=== PATIENT | male | born 1945 | race Caucasian/White ===

== ENCOUNTER 2017-12-12 14:16 | Outpatient (CLI) | payer BC, MEDICARE ==
--- NOTE | 2017-12-12 14:51 | RAD ---
PA AND LATERAL CHEST: History: Weight loss, fatigue. FINDINGS: Comparison made with exam of 11-16-16. The heart size is normal. The aorta is tortuous. The lungs are expanded without focal areas of consol idation, pneumothoraces or pleural effusions. There are post op changes of left rotator cuff repair. There are degenerative changes of the spine. IMPRESSION: No acute process. POS: [facility]
== END 2017-12-12 14:17 | disposition home or self-care (01) ==
LOC: SCSRAD 14:16
PROVIDERS: ATTEND Nurse Practitioner Family
DX: E87.1 Hypo-osmolality and hyponatremia (principal)
CPT/HCPCS: 71046

== ENCOUNTER 2017-12-13 15:09 | Inpatient (IN) | payer BC, MEDICARE ==
[2017-12-13 15:45] LABS: #Lymphocytes 0.5 thou/uL (1.20-3.40); #Neutrophils 11.4 thou/uL (1.40-6.50); %Eosinophils 0.1 % (0.0-10.0); %Lymphocytes 4.2 % (21.0-51.0); %Monocytes 7.7 % (0.0-10.0); %Neutrophils 88.1 % (42.0-75.0); Hemoglobin 12.3 g/dL (14.0-18.0); Mean Corpuscular HGB CONC 36.1 g/dL (32.0-36.0); Mean Corpuscular Hemoglobin 33.8 pg (27.0-31.0); Mean Corpuscular Volume 93.6 fl (80.0-94.0); Mean Platelet Volume 6.5 fL (7.4-10.4); Platelet Count 244 thou/uL (130-400); RBC Distribution Width 11.3 % (11.5-14.5); Red Blood Cell (RBC) Count 3.65 mill/uL (4.70-6.10)
[2017-12-13 16:01] LABS: ALT (SGPT) 26 U/L (8-55); AST (SGOT) 19 U/L (5-34); Albumin 4.7 g/dL (3.4-4.8); Alkaline Phosphatase 42 U/L (40-150); Anion Gap 20 mmol/L (10-20); BUN (Urea Nitrogen) 15 mg/dL (8.4-25.7); Bilirubin, Total 1.1 mg/dL (0.2-1.2); Calc. Creatinine Clearance 0 mL/min (70-130); Calcium 9.2 mg/dL (7.8-10.44); Carbon Dioxide 22 mmol/L (23-31); Chloride 88 mmol/L (98-107); Estimated GFR-MDRD 54; Globulin 2.5 g/dL (2.4-3.5); Glucose 174 mg/dL (80-115); Potassium 4.5 mmol/L (3.5-5.1); Protein, Total 7.2 g/dL (5.8-8.1); Sodium 125 mmol/L (136-145)
[2017-12-13] MEDS ORDERED: Lorazepam 2 MG/ML VIAL SLOW IVP PRN (17:19)
[2017-12-13 17:22] LABS: Thyroid Stimulating Hormone 0.4687 uIU/mL (0.35-4.94)
[2017-12-13] MEDS ORDERED: Dextrose 5% in Water 1,000 ML IV PRN (17:42)
[2017-12-13] MEDS ORDERED: Dextrose 50% Abboject 50 ML SYRINGE SLOW IVP PRN (17:42)
[2017-12-13] MEDS ORDERED: Insulin Regular 300 UNITS/3 ML VIAL SC PRN (17:42)
[2017-12-13 18:00] LABS: Anion Gap 16 mmol/L (10-20); BUN (Urea Nitrogen) 16 mg/dL (8.4-25.7); Calc. Creatinine Clearance 0 mL/min (70-130); Calcium 8.5 mg/dL (7.8-10.44); Carbon Dioxide 23 mmol/L (23-31); Chloride 90 mmol/L (98-107); Estimated GFR-MDRD 67; Glucose 153 mg/dL (80-115); Potassium 4.1 mmol/L (3.5-5.1); Sodium 125 mmol/L (136-145)
[2017-12-13 18:08] VITALS: BMI 23.5
[2017-12-13] MEDS ORDERED: Ketotifen Fumarate 0.025% Ophth Soln 5 ml Bottle EA EYE PRN (18:21)
[2017-12-13] MEDS: Flecainide 50 MG TAB PO SCH (20:54)
[2017-12-13] MEDS: Tamsulosin HCl 0.4 MG CAP PO SCH (20:54)
[2017-12-13] MEDS: Apixaban 5 MG TAB PO SCH (20:55)
[2017-12-13] MEDS: Rosuvastatin 20 MG TAB PO SCH (20:55)
[2017-12-13] MEDS: Pantoprazole 40 MG VIAL IVP SCH (20:57)
[2017-12-13] MEDS ORDERED: Ketotifen Fumarate 0.025% Ophth Soln 5 ml Bottle EA EYE SCH (21:00)
[2017-12-13 22:42] LABS: Osmolality, Urine 173 mOsm/kg (300-900)
[2017-12-13 23:41] LABS: Sodium, Urine Less than 20 mmol/L (Not Available)
--- NOTE | 2017-12-13 23:54 | HP ---
CHIEF COMPLAINT: Generalized weakness and loss of appetite. HISTORY OF PRESENT ILLNESS: The patient is a very pleasant 72-year-old male with a history of atrial fibrillation, on anticoagulation; diabetes; and history of Bejarano's esophagitis, who was sent to [facility] by his primary care doctor for abnormal labs. The patient states that for the past few we eks, he has been feeling low energy and has not had much of an appetite. Over the past few months, h e has lost about 30 pounds. The patient denies any fevers or chills and he denies any diaphoresis, a ny nausea, vomiting, diarrhea, any palpitations, or chest pain. The patient states that he has chron ic back pain and received a steroid shot on 12/10/2017 with minimal relief. The patient also has a h istory of alcohol use. He drinks about 3-4 beers a day and followed by a couple mugs of wine. The p atient states that he has not been eating very much. PAST MEDICAL HISTORY: History of atrial fibrillation, diabetes, hypertension, Bejarano's esophagitis. ALLERGIES: HYDROCODONE AND LORATADINE. MEDICATIONS: I do not have the medication list with me, but the patient states that he takes Eliquis 5 mg twice a day, he takes metformin 1000 twice a day, metoprolol 50 mg twice a day, Crestor 40 mg d aily, tamsulosin 0.4 mg daily, diltiazem he takes 120 mg daily. PAST SURGICAL HISTORY: Rotator cuff repair, tonsillectomy, and adenoidectomy. SOCIAL HISTORY: He drinks 3 or 4 beers a day, followed by 2 mugs of wine. Denies any smoking histor y; however, he is a former smoker. He denies any drug history. FAMILY HISTORY: Father had bypass at the age of 65, of a heart attack. Mother in the age of 62 with throat cancer. REVIEW OF SYSTEMS: All negative except for the ones mentioned above in the HPI. LABORATORY DATA: He has a white count of 13, hematocrit of 34.2, hemoglobin of 12.3, platelets of 24 4. Chemistry: His sodium is 125, on the 12th it was 129. Chloride of 88, potassium of 4.5, BUN of 15, creatinine of 1.32. His glucose is 174. His serum osmolality is 271. His chest x-ray that he h ad done indicated no acute process noted. PHYSICAL EXAMINATION: VITAL SIGNS: Temperature of 97.8, respirations 18, heart rate of 81, blood pressure 136/70, saturati on 100% on room air. GENERAL: He is awake, alert, oriented x3. Does not appear in any distress. CARDIOVASCULAR: S1, S2 present and regular. No murmurs or rubs heard. LUNGS: Clear to auscultation. No rhonchi or wheezes noted. ABDOMEN: Soft, nontender. Bowel sounds present x2. EXTREMITIES: No edema. NEUROVASCULAR: He has got no focal deficits; however, I did not walk the patient. SKIN: There are no skin tears or lesions noted. ASSESSMENT AND PLAN: 1. The patient is a very pleasant 72-year-old male who presented to the hospital with complaints of decreased energy and not eating, and was found to have hyponatremia. 2. Hyponatremia. This could possibly be secondary to hypotonic hyponatremia. There is a medication thiazide that was mentioned in the ER notes; however, the patient currently does not have his meds a nd I am not sure if he is taking the thiazide. The patient does not recall. Thiazides are very nani rious to cause hyponatremia; however, we will check a TSH level. His serum osmolality was low. We w ill check urine sodium and urine osmolality also. The patient also drinks. This could also be eithe r low solute due to decreased oral intake and also due to beer potomania, because he drinks a lot of alcohol. The patient states that he has been drinking about 3-4 regular bottles of water; however, h as not been eating very much. He states that he eats couple bites of food and feels very full. We w ill also get Nephrology on board since of hyponatremia and also he has got mild TONG. We will check o rthostatics; however, clinically, the patient does not appear to be dehydrated. We will put the elina ent on a fluid restriction and see if that improves the patient's sodium. 3. Weight loss, decreased appetite, and fatigue. The patient has had a history of Bejarano's esophag itis. He continues to drink according to him. He is not on any Protonix or any PPI and he has not f ollowed up with GI. There is a concern for possible malignancy. We will consult GI and go from ther e. However, the patient denies any dark stools. His H&H are stable. 4. Mild acute kidney injury. The patient's creatinine is 1.32; however, his BUN is completely roselyn l. We will continue to monitor. We will check urine sodium and urine osmolality. May consider gett ing a renal ultrasound to rule out any obstructive issues and continue to monitor. 5. Atrial fibrillation. We will continue the patient's home medication and also the patient's antic oagulation. The patient states that he does not take the Multaq anymore. He has been switched to fl ecainide. 6. Deep venous thrombosis prophylaxis. The patient is already on Eliquis.
[2017-12-14 00:26] LABS: Anion Gap 14 mmol/L (10-20); BUN (Urea Nitrogen) 16 mg/dL (8.4-25.7); Calc. Creatinine Clearance 83 mL/min (70-130); Calcium 8.5 mg/dL (7.8-10.44); Carbon Dioxide 24 mmol/L (23-31); Chloride 94 mmol/L (98-107); Estimated GFR-MDRD 77; Glucose 155 mg/dL (80-115); Potassium 3.9 mmol/L (3.5-5.1); Sodium 128 mmol/L (136-145)
[2017-12-14] MEDS ORDERED: Melatonin 3 MG TAB PO SCH (01:00)
[2017-12-14] MEDS: Acetaminophen 325 MG TAB PO PRN (01:19)
[2017-12-14 05:16] LABS: #Lymphocytes 0.7 thou/uL (1.20-3.40); #Monocytes 0.7 thou/uL (0.11-0.59); #Neutrophils 6.9 thou/uL (1.40-6.50); %Eosinophils 0.2 % (0.0-10.0); %Lymphocytes 8.6 % (21.0-51.0); %Monocytes 8.5 % (0.0-10.0); %Neutrophils 82.6 % (42.0-75.0); Hemoglobin 10.8 g/dL (14.0-18.0); Mean Corpuscular HGB CONC 35.8 g/dL (32.0-36.0); Mean Corpuscular Hemoglobin 33.7 pg (27.0-31.0); Mean Corpuscular Volume 94.1 fl (80.0-94.0); Mean Platelet Volume 7.2 fL (7.4-10.4); Platelet Count 193 thou/uL (130-400); RBC Distribution Width 11.3 % (11.5-14.5); White Blood Cell (WBC) Count 8.4 thou/uL (4.8-10.8)
[2017-12-14 05:29] LABS: Anion Gap 12 mmol/L (10-20); BUN (Urea Nitrogen) 14 mg/dL (8.4-25.7); Calc. Creatinine Clearance 89 mL/min (70-130); Calcium 8.4 mg/dL (7.8-10.44); Carbon Dioxide 26 mmol/L (23-31); Chloride 96 mmol/L (98-107); Estimated GFR-MDRD 82; Glucose 160 mg/dL (80-115); Potassium 3.9 mmol/L (3.5-5.1); Sodium 130 mmol/L (136-145)
[2017-12-14] MEDS: Pantoprazole 40 MG VIAL IVP SCH ×2 (08:32→21:32)
[2017-12-14] MEDS: Apixaban 5 MG TAB PO SCH (08:32)
[2017-12-14] MEDS: Flecainide 50 MG TAB PO SCH ×2 (08:32→21:30)
--- NOTE | 2017-12-14 10:39 | CON ---
DATE OF CONSULTATION: 12/14/2017 HISTORY OF PRESENT ILLNESS: Mr. Antonio is a 72-year-old white male who was initially admitted for ge neralized malaise and weight loss. He was also noted to be in acute kidney injury and hyponatremic. Initial workup suggested he was simply volume depleted. He was given volume repletion with slow imp rovement of the serum sodium. In addition, renal function has improved to normal. We are now being consulted for the hyponatremia and initial acute kidney injury. REVIEW OF SYSTEMS: No chest pain. Appetite decreased. Energy level is fair. No diarrhea, no const ipation, no abdominal pain, no headache, no diplopia, no nausea, no fever or chills, no shortness of breath, no headache, no gross hematuria, no dysuria, no urinary frequency, no syncopal episode. MEDICATIONS: Eliquis 5 mg p.o. b.i.d., Tylenol p.r.n., Tambocor 100 mg p.o. q.12h., Humulin R slidin g scale, Ativan 1 mg IV q.4 hours p.r.n., simvastatin 40 mg at bedtime, Flomax 0.4 mg once a day. PAST MEDICAL HISTORY: 1. Type 2 diabetes mellitus? 2. Hyperlipidemia. 3. GERD. 4. BPH. 5. Bejarano's esophagitis. 6. Hypertension. 7. Atrial fibrillation. ALLERGIES: HYDROCODONE and LORATADINE. TRAUMA: Status post right wrist fracture. IMMUNIZATIONS: Up to date. HOSPITALIZATIONS: Please see past medical history. PAST SURGICAL HISTORY: 1. Status post rotator cuff surgery. 2. Status post tonsillectomy. SOCIAL HISTORY: He is and lives in [place]. He has 3 children. He smoked for 17 years, one p ack a day, currently not smoking. Alcohol, 8 alcoholic drinks per day. 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 Education: Some college courses. No IV drug abuse. Status post blo od transfusion. FAMILY HISTORY: No family history of ESRD. PHYSICAL EXAMINATION: VITAL SIGNS: Blood pressure is 165/76, heart rate 61, respiratory rate 16, temperature 97.7, pulse o x 97%. GENERAL: Awake, alert, supine, comfortable, not in distress. SKIN: Decreased turgor. HEENT: He has pinkish conjunctivae, anicteric sclerae. NECK: No neck mass, no carotid bruits, no JVD. CHEST: No deformities. LUNGS: Clear breath sounds, no wheezing, no crackles. HEART: Normal sinus rhythm. No murmur, no gallops or rubs. ABDOMEN: Globular, soft, nontender, no masses. EXTREMITIES: No edema, no deformities. LABORATORY AND X-RAY FINDINGS: 12/14/2017 - Hemoglobin 10.8, sodium 130, potassium 3.9, chloride 96, carbon dioxide 26, BUN 14, creatinine 0.91, glucose 160, calcium 8.4. TSH 0.4. 12/13/2017 - Serum sodium was 125. Urinalysis; urine osmolality 173. Urine sodium less than 20. ASSESSMENT AND PLAN: 1. Hyponatremia - I suspect this is related to hypovolemic hyponatremia, improved with volume replet ion. Urine sediment and urine chemistry suggest that he may simply be prerenal. For the moment due to the improving serum sodium will continue current management. Increase if needed, we can resume ba ck normal saline with this patient. 2. Acute kidney injury. There was a report that the initial creatinine with this patient was at 1.2 5. I did recheck the chemistries and it is now within normal. He may have also had some degree of h emodynamically mediated renal dysfunction. Please note this patient has a 30 pound weight loss and f or that reason, a GI consult has been done to rule out any occult malignancy. Thank you for the consult.
--- NOTE | 2017-12-14 11:33 | CON ---
DATE OF CONSULTATION: 12/14/2017 GASTROINTESTINAL INPATIENT CONSULTATION NOTE REQUESTING PHYSICIAN: Cecilia Spangler MD. REASON FOR CONSULTATION: Weight loss and early satiety. HISTORY OF PRESENT ILLNESS: Jj Antonio is a very pleasant 72-year-old man, patient of my GI colle ague Dr. Lucian Nino. He has a history significant for prostate cancer status post radiation therapy and development of rectal AVMs. He also has a history of short segment Bejarano's esophagus and gastr ic arteriovenous malformations. His last EGD was in 10/2016 showing short segment Bejarano's and a bl eeding gastric AVM, which was cauterized. His last colonoscopy was in 01/2016, which showed rectal A VMs which were treated with argon plasma coagulation and a benign polyp, which was removed. The [facility] ent takes Eliquis for his atrial fibrillation. He was admitted to the hospital yesterday after being found to have multiple lab abnormalities on routine physical examination. He was found to have some mild acute kidney injury as well as hyponatremia. He has reported significant weight loss of 50 amanda nds over the past couple of years, but more rapid weight loss of 30 pounds over the past 6 months. H e attributes this to low appetite and early satiety and decreased oral intake. He will get nauseated usually in the mornings though vomiting is more rare. He denies any abdominal pain. There is no me юлия or hematochezia. His bowel movements have slowed down a bit. He is now having bowel movement e very 3 days or so where it used to be more frequent. He denies any dysphagia. He is not on any acid suppression despite his confirm diagnosis of short segment Bejarano's esophagus. His mother of throat cancer. He does admit to too much alcohol intake. He is unwilling to quantify this for me, b ut he had reported to other providers about 3-4 beers followed by a couple of mugs of wine per day. REVIEW OF SYSTEMS: Full review of systems including constitutional, head, eyes, ears, nose, throat, GI, , cardiovascular, respiratory, musculoskeletal, and neurologic systems is negative except as no felipe in the HPI. PAST MEDICAL HISTORY: 1. Atrial fibrillation status post ablation, on Eliquis. 2. Chronic back pain. 3. Prostate cancer status post radiation treatment. 4. Diabetes. 5. Short segment Bejarano's esophagus confirmed by biopsy in 10/2016. 6. Hypertension. 7. Rectal arteriovenous malformations. 8. Adenomatous colon polyps, last colonoscopy 01/2016. 9. Rotator cuff surgery. 10. Tonsillectomy and adenoidectomy. 11. Restless leg syndrome. ALLERGIES: HYDROCODONE AND LORATADINE, cause rash. OUTPATIENT MEDICATIONS: Eliquis twice daily, metformin, metoprolol, Crestor, Flomax, diltiazem. FAMILY HISTORY: His mother had throat cancer. His father had coronary artery disease. SOCIAL HISTORY: The patient is a former smoker. No drug use. He will have 3-4 beers and 2 mugs of wine per day. PHYSICAL EXAMINATION: VITAL SIGNS: Temperature 97.7, pulse 61, blood pressure 165/76, 97% oxygen saturation on room air. GENERAL: A 72-year-old man ambulating about the room comfortably, in no distress. SKIN: No jaundice, no rashes were palpable. EYES: No scleral icterus. Extraocular movements intact. ENT: Mucous membranes moist, no oral lesions. LYMPH: No submandibular or supraclavicular lymphadenopathy. THYROID: Nontender to palpation. HEART: Regular rate and rhythm. LUNGS: Clear to auscultation bilaterally. ABDOMEN: Nondistended. Bowel sounds present, soft, nontender to palpation throughout. No masses or organomegaly appreciated. EXTREMITIES: No peripheral edema. VESSELS: Radial pulses 2+ bilaterally. NEUROLOGICAL: Cranial nerves II-XII intact bilaterally. No focal deficits. LABORATORY STUDIES: WBC initially 13, came down to 8.4; hemoglobin is 10.8; MCV 94; platelets 193. BUN down to 14; creatinine initially 1.32, now down to 0.91. Sodium 130, potassium 3.9, glucose 157. LFTs all normal with total bilirubin 1.1, alkaline phosphatase 42, AST 19, ALT 26, albumin 4.7. ASSESSMENT AND PLAN: 1. Abnormal weight loss. 2. Early satiety. 3. Nausea. 4. Alcohol abuse. 5. History of Bejarano's esophagus. The most concerning aspect of his presentation is the progressive fatigue and weight loss over the pa st 6 months. This is concomitant with an unexplained early satiety. I agree that further workup is warranted. He has had upper and lower endoscopy within the past couple of years, but is due for uppe r endoscopy anyway and has Bejarano's esophagus, untreated with any PPI. Today, we will plan for a CT of the abdomen and pelvis. Assuming this is nonrevealing, we will plan for upper and lower endoscop y. We will hold his Eliquis now, and if we proceed with endoscopy, we can get this done on Sunday. Thank you for the consultation. Please call any time with questions or concerns.
[2017-12-14 12:16] LABS: Anion Gap 12 mmol/L (10-20); BUN (Urea Nitrogen) 13 mg/dL (8.4-25.7); Calc. Creatinine Clearance 85 mL/min (70-130); Calcium 8.9 mg/dL (7.8-10.44); Carbon Dioxide 28 mmol/L (23-31); Chloride 96 mmol/L (98-107); Estimated GFR-MDRD 78; Glucose 193 mg/dL (80-115); Potassium 3.7 mmol/L (3.5-5.1); Sodium 132 mmol/L (136-145)
--- NOTE | 2017-12-14 14:57 | CT ---
ABDOMEN AND PELVIC CT SCAN WITH IV CONTRAST: Date: 12/14/17 HISTORY: 72-year-old male with history of abnormal weight loss, nausea, decreased appetite. COMPARISON: 10/22/14. FINDINGS: Visualized lower lung bases are clear of acute process. Mild fatty changes in the liver. Multiple gal lstones without gallbladder wall thickening or CT evidence for acute cholecystitis. Pancreas, spleen, and adrenal glands show no significant acute process. Right upper pole renal minimally septated cyst , benign and stable. No renal calculus or obstruction. Normal appearing appendix. The urinary blad jazmin wall is somewhat thickened, but there is minimal or decreased filling and appearance is stable fr om the prior study. IMPRESSION: Minimal fatty changes of the liver. Cholelithiasis without overt cholecystitis. Stable right upper po le renal cyst. No evidence for significant acute process in the abdomen or pelvis. Bilateral pars def ects at L5, stable. POS: [facility]
[2017-12-14] MEDS ORDERED: ISOVUE-370 76%-LOCM 1 ML ONE (16:38)
[2017-12-14 17:52] LABS: Anion Gap 12 mmol/L (10-20); BUN (Urea Nitrogen) 12 mg/dL (8.4-25.7); Calc. Creatinine Clearance 89 mL/min (70-130); Calcium 8.8 mg/dL (7.8-10.44); Carbon Dioxide 26 mmol/L (23-31); Chloride 98 mmol/L (98-107); Estimated GFR-MDRD 82; Glucose 165 mg/dL (80-115); Potassium 3.6 mmol/L (3.5-5.1); Sodium 132 mmol/L (136-145)
[2017-12-14] MEDS: Melatonin 3 MG TAB PO SCH (21:30)
[2017-12-14] MEDS: Rosuvastatin 20 MG TAB PO SCH (21:31)
[2017-12-14] MEDS: Tamsulosin HCl 0.4 MG CAP PO SCH (21:32)
[2017-12-14 23:50] LABS: Anion Gap 13 mmol/L (10-20); BUN (Urea Nitrogen) 11 mg/dL (8.4-25.7); Calc. Creatinine Clearance 95 mL/min (70-130); Calcium 8.7 mg/dL (7.8-10.44); Carbon Dioxide 27 mmol/L (23-31); Chloride 98 mmol/L (98-107); Estimated GFR-MDRD 89; Glucose 109 mg/dL (80-115); Potassium 3.5 mmol/L (3.5-5.1); Sodium 134 mmol/L (136-145)
[2017-12-15] MEDS: Acetaminophen 325 MG TAB PO PRN ×2 (01:00→11:45)
[2017-12-15] MEDS: Melatonin 3 MG TAB PO SCH ×2 (01:01→23:11)
[2017-12-15] MEDS ORDERED: Amlodipine 5 MG TAB PO SCH (02:30)
[2017-12-15] MEDS: Pantoprazole 40 MG VIAL IVP SCH (08:10)
[2017-12-15] MEDS: Flecainide 50 MG TAB PO SCH ×2 (08:10→21:27)
[2017-12-15] MEDS ORDERED: GoLYTELY 4,000 ml Bottle PO SCH (09:15)
--- NOTE | 2017-12-15 10:04 | PRG ---
DATE OF SERVICE: 12/15/2017 SUBJECTIVE: Mr. Antonio has no new complaints. He is feeling okay. He started on a clear liquid t today. PHYSICAL EXAMINATION: VITAL SIGNS: Temperature 97.9, pulse 60, blood pressure 166/74, 96% oxygen saturation on room air. GENERAL: No acute distress. HEART: Regular rate and rhythm. LUNGS: Clear to auscultation bilaterally. ABDOMEN: Soft, nontender to palpation. EXTREMITIES: No peripheral edema. LABORATORY STUDIES: Sodium 134, potassium 3.5, BUN 11, creatinine 0.85, glucose 137. IMAGING STUDIES: CT of the abdomen and pelvis performed yesterday showed minimal fatty liver, cholel ithiasis without cholecystitis and a stable right upper pole renal cyst, no acute processes or other significant pathology. ASSESSMENT AND PLAN: 1. Abnormal weight loss. 2. Early satiety. 3. Nausea. 4. Alcohol abuse. I discussed the reassuring CT results with the patient. I do not think his symptoms can be attribute d to his gallstones. We will plan for EGD and colonoscopy tomorrow after bowel preparation tonight. The patient desires to proceed.
--- NOTE | 2017-12-15 10:09 | PDOC.PN ---
- Subjective Encounter Start Date: 12/14/17 Encounter Start Time: 11:00 Subjective: pt up in bed no complains - Objective Vital Signs & Weight: Vital Signs (12 hours) Temp Pulse Resp BP BP BP Pulse Ox 12/15/17 08:09 60 12/15/17 08:00 98.3 F 60 18 99 12/15/17 07:55 97.9 F 60 16 166/74 H 96 12/15/17 04:00 98.0 F 59 L 16 163/74 H 163/74 H 98 12/15/17 02:37 72 168/66 H 12/15/17 01:15 170/76 H 12/15/17 00:00 98.0 F 72 16 183/71 H 183/71 H 100 Weight Admit Weight 183 lb Weight 183 lb I&O: 12/14/17 12/15/17 12/16/17 06:59 06:59 06:59 Intake Total 750 420 Balance 750 420 Result Diagrams: 12/14/17 04:07 12/14/17 23:17 Additional Labs: Accuchecks 12/15/17 12/14/17 12/14/17 04:37 20:55 16:30 POC Glucose 137 H 162 H 227 H 12/14/17 11:15 POC Glucose 200 H Phys Exam - Physical Examination HEENT: PERRLA, moist MMs, sclera anicteric, TM's clear, oral pharynx no lesions , 2+ tonsils Neck: no nodes, no JVD, supple, full ROM Respiratory: no wheezing, no rales, no rhonchi, wheezing present, clear to auscultation bilateral Cardiovascular: RRR, no significant murmur, no rub, gallop, irregular Gastrointestinal: soft, non-tender, no distention, positive bowel sounds Musculoskeletal: no edema, pulses present, edema present Neurological: non-focal, normal sensation, moves all 4 limbs Dx/Plan (1) Hyponatremia Code(s): E87.1 - HYPO-OSMOLALITY AND HYPONATREMIA Status: Acute (2) TONG (acute kidney injury) Code(s): N17.9 - ACUTE KIDNEY FAILURE, UNSPECIFIED Status: Acute Comment: Likely due to acute blood loss anemia, hypovolemia, improved (3) Weight loss, abnormal Code(s): R63.4 - ABNORMAL WEIGHT LOSS Status: Acute (4) Alcohol abuse Code(s): F10.10 - ALCOHOL ABUSE, UNCOMPLICATED Status: Acute (5) Atrial fibrillation with RVR Code(s): I48.91 - UNSPECIFIED ATRIAL FIBRILLATION Status: Acute (6) DM2 (diabetes mellitus, type 2) Status: Chronic Qualifiers: Diabetes mellitus chcf insulin use: without termite helper use Diabetes mellitus complication status: with kidney complications Diabetes mellitus complication detail: with nephropathy Qualified Code(s): E11.21 - Type 2 diabetes mellitus with diabetic nephropathy Comment: Resume Metformin XR 1000mg po daily, ISS, accuchecks achs (7) HTN (hypertension) Code(s): I10 - ESSENTIAL (PRIMARY) HYPERTENSION Status: Chronic Qualifiers: Hypertension type: essential hypertension Qualified Code(s): I10 - Essential (primary) hypertension - Plan * . PLAN: pt under went ctabd/pel which is normal. sodium has improved. continue ASE protocol. Review of Systems - Review of Systems ENT: negative: Ear Pain, Ear Discharge, Nose Pain, Nose Discharge, Nose Congestion, Mouth Pain, Mouth Swelling, Throat Pain, Throat Swelling, Other Respiratory: negative: Cough, Dry, Shortness of Breath, Hemoptysis, SOB with Excertion, Pleuritic Pain, Sputum, Wheezing Cardiovascular: negative: chest pain, palpitations, orthopnea, paroxysmal nocturnal dyspnea, edema, light headedness, other - Medications/Allergies Allergies/Adverse Reactions: Allergies Allergy/AdvReac Type Severity Reaction Status Date / Time hydrocodone Allergy Verified 12/08/16 16:38 loratadine Allergy Verified 12/08/16 16:38 Medications: Current Medications Acetaminophen (Tylenol) 650 mg PO Q4H PRN PRN Reason: Headache/Fever or Pain Last Admin: 12/15/17 11:45 Dose: 650 mg Apixaban (Eliquis) 5 mg PO BID MAR Last Admin: 12/14/17 08:32 Dose: 5 mg Dextrose/Water (Dextrose 50%) 25 gm SLOW IVP PRN PRN PRN Reason: Hypoglycemia Diltiazem HCl (Cardizem Sr) 60 mg PO BID MAR Flecainide Acetate (Tambocor) 100 mg PO Q12HR MAR Last Admin: 12/15/17 08:10 Dose: 100 mg Glucagon (Glucagon) 1 mg IM PRN PRN PRN Reason: Hypoglycemia Dextrose/Water (D5w) 1,000 mls @ 0 mls/hr IV .Q0M PRN; As Directed PRN Reason: Hypoglycemia Insulin Human Regular (Humulin R) 0 units SC .MILD SLIDING SCALE PRN PRN Reason: Mild Correctional Scale Last Admin: 12/14/17 17:06 Dose: 3 unit Ketotifen Fumarate (Zaditor 0.025% Ophth Soln) 1 drop EA EYE BID PRN PRN Reason: ALLERGY EYES Lorazepam (Ativan) 1 mg SLOW IVP Q4H PRN PRN Reason: Alcohol Withdrawal Melatonin (Melatonin) 3 mg PO HS [facility] Last Admin: 12/15/17 01:01 Dose: 3 mg Pantoprazole Sodium (Protonix) 40 mg PO BID [facility] Polyethylene Glycol/Electrolytes (Golytely) 4,000 ml PO ONE [facility] Stop: 12/15/17 23:59 Last Admin: 12/15/17 16:39 Dose: 4,000 ml Rosuvastatin Calcium (Crestor) 40 mg PO HS [facility] Last Admin: 12/14/17 21:31 Dose: 40 mg Tamsulosin HCl (Flomax) 0.4 mg PO HS [facility] Last Admin: 12/14/17 21:32 Dose: 0.4 mg Tramadol HCl (Ultram) 50 mg PO Q6H PRN PRN Reason: Pain Last Admin: 12/15/17 18:22 Dose: 50 mg
[2017-12-15] MEDS ORDERED: traMADol HCl 50 MG TAB PO PRN (14:27)
--- NOTE | 2017-12-15 18:41 | PDOC.PN ---
- Subjective Encounter Start Date: 12/15/17 Encounter Start Time: 11:00 Subjective: pt up in bed complains of lower back pain - Objective Vital Signs & Weight: Vital Signs (12 hours) Temp Pulse Resp BP Pulse Ox 12/15/17 08:09 60 12/15/17 08:00 98.3 F 60 18 99 12/15/17 07:55 97.9 F 60 16 166/74 H 96 Weight Admit Weight 183 lb Weight 183 lb I&O: 12/14/17 12/15/17 12/16/17 06:59 06:59 06:59 Intake Total 750 1260 Balance 750 1260 Result Diagrams: 12/14/17 04:07 12/14/17 23:17 Additional Labs: Accuchecks 12/15/17 12/15/17 12/15/17 16:39 11:50 04:37 POC Glucose 173 H 168 H 137 H 12/14/17 20:55 POC Glucose 162 H Phys Exam - Physical Examination HEENT: PERRLA, moist MMs, sclera anicteric, TM's clear, oral pharynx no lesions , 2+ tonsils Neck: no nodes, no JVD, supple, full ROM Respiratory: no wheezing, no rales, no rhonchi, wheezing present, clear to auscultation bilateral Cardiovascular: RRR, no significant murmur, no rub, gallop, irregular Gastrointestinal: soft, non-tender, no distention, positive bowel sounds left hip pain Neurological: non-focal, normal sensation, moves all 4 limbs Dx/Plan (1) Hyponatremia Code(s): E87.1 - HYPO-OSMOLALITY AND HYPONATREMIA Status: Acute (2) TONG (acute kidney injury) Code(s): N17.9 - ACUTE KIDNEY FAILURE, UNSPECIFIED Status: Acute Comment: Likely due to acute blood loss anemia, hypovolemia, improved (3) Weight loss Status: Acute (4) Weight loss, abnormal Code(s): R63.4 - ABNORMAL WEIGHT LOSS Status: Acute (5) Alcohol abuse Code(s): F10.10 - ALCOHOL ABUSE, UNCOMPLICATED Status: Acute - Plan * . pt's Na is at baseline pt to go for colonoscopy and egd in am continue ppi pt complains of back pain. Recent steroid injection. will rx tramadol prn for pain Review of Systems - Review of Systems ENT: negative: Ear Pain, Ear Discharge, Nose Pain, Nose Discharge, Nose Congestion, Mouth Pain, Mouth Swelling, Throat Pain, Throat Swelling, Other Cardiovascular: negative: chest pain, palpitations, orthopnea, paroxysmal nocturnal dyspnea, edema, light headedness, other Gastrointestinal: negative: Nausea, Vomiting, Abdominal Pain, Diarrhea, Constipation, Melena, Hematochezia, Other Musculoskeletal: Other (lower back pain) Skin: negative: Rash, Lesions, Chinmay, Bruising, Other - Medications/Allergies Allergies/Adverse Reactions: Allergies Allergy/AdvReac Type Severity Reaction Status Date / Time hydrocodone Allergy Verified 12/08/16 16:38 loratadine Allergy Verified 12/08/16 16:38 Medications: Current Medications Acetaminophen (Tylenol) 650 mg PO Q4H PRN PRN Reason: Headache/Fever or Pain Last Admin: 12/15/17 11:45 Dose: 650 mg Apixaban (Eliquis) 5 mg PO BID [facility] Last Admin: 12/14/17 08:32 Dose: 5 mg Dextrose/Water (Dextrose 50%) 25 gm SLOW IVP PRN PRN PRN Reason: Hypoglycemia Diltiazem HCl (Cardizem Sr) 60 mg PO BID [facility] Flecainide Acetate (Tambocor) 100 mg PO Q12HR [facility] Last Admin: 12/15/17 08:10 Dose: 100 mg Glucagon (Glucagon) 1 mg IM PRN PRN PRN Reason: Hypoglycemia Dextrose/Water (D5w) 1,000 mls @ 0 mls/hr IV .Q0M PRN; As Directed PRN Reason: Hypoglycemia Insulin Human Regular (Humulin R) 0 units SC .MILD SLIDING SCALE PRN PRN Reason: Mild Correctional Scale Last Admin: 12/14/17 17:06 Dose: 3 unit Ketotifen Fumarate (Zaditor 0.025% Ophth Soln) 1 drop EA EYE BID PRN PRN Reason: ALLERGY EYES Lorazepam (Ativan) 1 mg SLOW IVP Q4H PRN PRN Reason: Alcohol Withdrawal Melatonin (Melatonin) 3 mg PO HS [facility] Last Admin: 12/15/17 01:01 Dose: 3 mg Pantoprazole Sodium (Protonix) 40 mg PO BID [facility] Polyethylene Glycol/Electrolytes (Golytely) 4,000 ml PO ONE [facility] Stop: 12/15/17 23:59 Last Admin: 12/15/17 16:39 Dose: 4,000 ml Rosuvastatin Calcium (Crestor) 40 mg PO HS MAR Last Admin: 12/14/17 21:31 Dose: 40 mg Tamsulosin HCl (Flomax) 0.4 mg PO HS MAR Last Admin: 12/14/17 21:32 Dose: 0.4 mg Tramadol HCl (Ultram) 50 mg PO Q6H PRN PRN Reason: Pain Last Admin: 12/15/17 18:22 Dose: 50 mg
[2017-12-15] MEDS ORDERED: Diltiazem HCl SR 60 mg Capsule PO SCH (21:00)
[2017-12-15] MEDS: Rosuvastatin 20 MG TAB PO SCH (21:27)
[2017-12-15] MEDS: Tamsulosin HCl 0.4 MG CAP PO SCH (21:27)
[2017-12-15] MEDS: Diltiazem HCl SR 60 mg Capsule PO SCH (21:27)
[2017-12-16 01:33] VITALS: TEMP 97.8
[2017-12-16] MEDS ORDERED: Metoprolol Tartrate 25 MG TAB PO SCH (04:15)
[2017-12-16 06:32] VITALS: BP 174/93
[2017-12-16] MEDS: Diltiazem HCl SR 60 mg Capsule PO SCH (08:22)
[2017-12-16] MEDS: Flecainide 50 MG TAB PO SCH (08:22)
[2017-12-16] MEDS ORDERED: Ondansetron HCl/PF 4 MG/2 ML Vial IVP PRN (08:42)
[2017-12-16] MEDS ORDERED: Promethazine HCl 25 MG/ML VIAL SLOW IVP PRN (08:42)
[2017-12-16] MEDS ORDERED: Promethazine HCl 25 MG/ML VIAL IM PRN (08:42)
--- NOTE | 2017-12-16 11:06 | OP ---
DATE OF PROCEDURE: 12/16/2017 GI ENDOSCOPY NOTE SURGEON: Uriel Jiang M.D. FULFILLMENT ASSOCIATE SURGEON: None. PROCEDURES: 1. EGD with biopsies. 2. Colonoscopy with polypectomy. INDICATIONS: 1. Abnormal weight loss. 2. Early satiety. 3. History of Bejarano's esophagus. MEDICATIONS: See anesthesia record. FINDINGS: After discussion of the risks, benefits and alternatives of the procedure, informed consen t was obtained and witnessed. Pre-endoscopic cardiopulmonary examination was satisfactory. Timeout was performed before sedation was achieved. Sedation was achieved with anesthesia assistance in the endoscopy unit. A Pentax adult upper endoscope was placed into the oropharynx and passed through the cricopharyngeus under direct visualization. The esophageal mucosa appeared normal throughout. At t he GE junction, there is a single tongue of salmon-colored mucosa extending up only 2 cm above the Z- line. Biopsies were obtained from this segment of Bejarano's esophagus, for surveillance to rule out dysplasia. The endoscope was advanced into the stomach. Forward and retroflexed views of the entire gastric mucosa were obtained. Within the gastric antrum, there is diffuse erythema and edema as wel l as several small nonbleeding erosions. Biopsies were obtained from the gastric antrum and body to rule out H. pylori infection. The endoscope was then passed through the pylorus and into the first a nd second portions of the duodenum. The mucosa appeared normal. 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 Biopsies were obtained fro m the ampulla, taking care to avoid the papillary opening to rule out adenomatous tissue. The upper endoscope was then completely withdrawn and the patient was repositioned. Digital rectal exam was performed, which was unremarkable. A Pentax adult colonoscope was inserted i nto the anus and passed forward to the cecum in the usual fashion. The cecal base was identified by the appendiceal orifice as well as the ileocecal valve. The terminal ileum was not intubated. The c olonoscope was then slowly withdrawn in a gradual and circumferential manner with careful examination of the entire colonic mucosa. The quality of the prep was good. In the ascending colon, there was a single sessile polyp measuring about 5 mm in size. This was completely removed with cold snare and retrieved for pathology. In the rectum, there are a few small nonbleeding arteriovenous malformatio ns. No treatment was applied on this exam. Retroflexion in the rectum demonstrated internal hemorrh oids. The colonoscope was then completely withdrawn and the patient allowed to recover. The patient tolerated the procedures well. There were no immediate post-procedure complications. IMPRESSION: 1. Erosive gastritis, biopsied. 2. 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 3. Short segment Bejarano's esophagus, biopsied. 4. A 5-mm ascending colon polyp, completely removed with cold snare and retrieved for pathology. 5. Nonbleeding rectal arteriovenous malformations. 6. Internal hemorrhoids. 7. Otherwise, normal esophagogastroduodenoscopy and colonoscopy. RECOMMENDATIONS: 1. Follow up pathology results. 2. Daily proton pump inhibitor. 3. Stop alcohol consumption. 4. Okay to resume Eliquis. 5. Follow up in the GI clinic with Dr. Nino. 6. Okay for discharge home from a GI perspective. GI will sign off. Please call back with any questions or concerns.
[2017-12-16] MEDS ORDERED: PROPOFOL 200 MG/20 ML VIAL ONE (11:59)
[2017-12-16 13:05] LABS: Anion Gap 13 mmol/L (10-20); BUN (Urea Nitrogen) 6 mg/dL (8.4-25.7); Calc. Creatinine Clearance 82 mL/min (70-130); Calcium 8.7 mg/dL (7.8-10.44); Carbon Dioxide 28 mmol/L (23-31); Chloride 98 mmol/L (98-107); Estimated GFR-MDRD 75; Glucose 154 mg/dL (80-115); Potassium 3.3 mmol/L (3.5-5.1); Sodium 136 mmol/L (136-145)
[2017-12-16] MEDS ORDERED: Potassium Chloride 20 MEQ TAB PO SCH (13:45)
--- NOTE | 2017-12-18 04:36 | DIS ---
DATE OF ADMISSION: 12/13/2017 DATE OF DISCHARGE: 12/16/2017 DISCHARGE DIAGNOSES: 1. Hyponatremia. 2. Abnormal weight loss. 3. Erosive gastritis. 4. Acute kidney injury. HOSPITAL COURSE: Patient is a very pleasant 72-year-old male who initially presented to the hospital for generalized weakness and early satiety. Patient was found to be hyponatremic, which improved wi th fluid restriction. Also, patient had a mild TONG, for the hyponatremia and TONG Nephrology was cons ulted. The patient continued to improve and his sodium level [facility] to [facility] The patient also was seen by GI and underwent an EGD and a colonoscopy. The EGD indicat ed erosive gastritis and biopsies were taken. 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 There was a short segment Bejarano esophagus, which was also biopsied. In the colonoscopy, he had a 5 mm ascending colonic polyp which was removed. Rudolph traylor continued to be on a PPI. Discussed extensively with the patient to quit alcohol use. Patient 's Eliquis was resumed since with a history of atrial fibrillation. The patient will follow in the G I clinic with Dr. Nino. PHYSICAL EXAMINATION: VITAL SIGNS: Temperature of 97.8, heart rate of 65, respirations 16, 98% on room air, blood pressure 152/75. GENERAL: He is awake, alert, oriented x3, does not appear in distress. CARDIOVASCULAR: S1, S2 present. No murmurs, rubs or gallops. LUNGS: Clear to auscultation. No rhonchi or wheezes noted. ABDOMEN: Soft and nontender. Bowel sounds are present x2. EXTREMITIES: No edema. DISCHARGE INSTRUCTIONS: Again, patient will be discharged home. Follow up with PCP. He was advised to quit drinking alcohol. HOME MEDICATIONS: Flecainide 100 mg b.i.d., diltiazem 120 mg b.i.d., metoprolol 50 mg b.i.d., metfor min 1 tab b.i.d., Eliquis 1 tab b.i.d., tamsulosin 1 cap daily, rosuvastatin 1 at bedtime, and pantop razole 40 mg b.i.d.
== END 2017-12-16 14:08 | disposition home or self-care (01) | DRG 683 ==
LOC: ERS 15:09 → T4-B 17:48
PROVIDERS: ADMIT Internal Medicine; ATTEND Internal Medicine
PROC: 0DB48ZX Excision of Esophagogastric Junction, Via Natural or Artificial Opening Endoscopic, Diagnostic (ICD-10-PCS; principal; 2017-12-16)
PROC: 0DB68ZX Excision of Stomach, Via Natural or Artificial Opening Endoscopic, Diagnostic (ICD-10-PCS; 2017-12-16)
PROC: 0DBK8ZX Excision of Ascending Colon, Via Natural or Artificial Opening Endoscopic, Diagnostic (ICD-10-PCS; 2017-12-16)
DX: N17.9 Acute kidney failure, unspecified (principal); E87.1 Hypo-osmolality and hyponatremia; R63.4 Abnormal weight loss; I48.91 Unspecified atrial fibrillation; K22.70 Barrett's esophagus without dysplasia; K29.60 Other gastritis without bleeding; K63.5 Polyp of colon; F10.10 Alcohol abuse, uncomplicated; K55.20 Angiodysplasia of colon without hemorrhage; K64.8 Other hemorrhoids; E11.9 Type 2 diabetes mellitus without complications; M54.9 Dorsalgia, unspecified; G89.29 Other chronic pain; I10 Essential (primary) hypertension; G25.81 Restless legs syndrome; Z88.5 Allergy status to narcotic agent; Z88.8 Allergy status to other drugs, medicaments and biological substances; Z85.46 Personal history of malignant neoplasm of prostate; Z92.3 Personal history of irradiation
CPT/HCPCS: 36415; 36416; 74177; 80048; 80307; 82533; 83930; 83935; 84300; 84443; 85025; 88305; 88312; 88313; 93005; 96360; C9113; J1815; J2060; J2704

== ENCOUNTER 2017-12-17 10:46 | Outpatient (CLI) | payer BC, MEDICARE ==
--- NOTE | 2017-12-17 13:16 | MRI ---
NONCONTRAST ENHANCED MRI IMAGES LUMBAR SPINE: HISTORY: Low back pain for several years. FINDINGS: Multiplanar, multisequence noncontrast-enhanced MRI images of the lumbar spine were obtained on . Comparison is made to previous exam from 11/18/14. For the purposes of this dictation, the last freely mobile vertebral body will be considered to be th e L5 vertebral body. All other vertebral bodies are numbered according to this. T12-L1: Unremarkable. L1-2: Disk desiccation is seen. There is bilateral facet and ligamentum flavum hypertrophy seen. T his results in mild central and lateral recess stenosis. This has not significantly changed since th e previous exam. No newly developed masses or lesions seen. L2-3: Disk desiccation is seen. There is a broad-based disk bulge with bilateral facet and ligament um flavum hypertrophy. This results in a moderate degree of central and lateral recess stenosis. Mo derate bilateral neural foraminal narrowing also seen. L3-4: Disk desiccation is seen. There is a broad-based disk bulge with bilateral facet and ligament um flavum hypertrophy. This results in moderate to severe left L3-4 lateral recess stenosis and mild to moderate right L3-4 lateral recess and central stenosis. There is a broad-based disk protrusion seen. This was present on the previous exam. A central annular fissure is also seen also unchanged since the previous exam. There does appear to be a newly developed synovial cyst measuring 7.4 x 5.7 mm originating from the medial anterior aspect of the left L3-4 facet joints extending into the late ral recess and compressing the left L4 nerve root as it passes through the lateral recess posteriorly . The L3-4 neural foramen demonstrate moderate bilateral narrowing due to facet hypertrophic changes . L4-5: Disk desiccation is seen. There is a broad-based central disk protrusion with bilateral facet hypertrophy. This results in mild central and lateral recess stenosis. There is a left L4-5 latera l recess annular fissure. Mild to moderate bilateral facet hypertrophy and neural foraminal narrowin g is seen. L5-S1: Unremarkable. IMPRESSION: Multilevel disk desiccation and central disk protrusion at L2-3, L3-4, and L4-5. There is a newly de veloped left L3-4 synovial cyst compressing the left L3-4 lateral recess. POS: [facility]
== END 2017-12-17 10:47 | disposition home or self-care (01) ==
LOC: TBSIIMAG 10:46
PROVIDERS: ATTEND Nurse Practitioner Family
DX: M48.062 Spinal stenosis, lumbar region with neurogenic claudication (principal); M51.26 Other intervertebral disc displacement, lumbar region; M51.86 Other intervertebral disc disorders, lumbar region; M71.38 Other bursal cyst, other site
CPT/HCPCS: 72148

== ENCOUNTER 2018-03-26 07:32 | Day surgery (SDC) | payer BC, MEDICARE ==
[2018-03-22 13:12] VITALS: BMI 23.7
[2018-03-26] MEDS ORDERED: CEFAZOLIN/Water 2 GM/20 ML SYRINGE ONE (08:54)
[2018-03-26] MEDS ORDERED: Sodium Chloride 0.9% 10 ML ONE (10:01)
[2018-03-26] MEDS ORDERED: Bacitracin Zinc Ointment 30 gm TUBE ONE (10:02)
[2018-03-26] MEDS ORDERED: Thrombin 5000 UNITS/5 ML VIAL ONE (10:02)
[2018-03-26] MEDS ORDERED: Fentanyl 100 MCG/2 ML VIAL ONE ×2 (10:11→12:57)
[2018-03-26] MEDS ORDERED: Fleet Enema 133 ML BOT PR PRN (12:44)
[2018-03-26] MEDS ORDERED: Mag-Al 1200 mg/1200 mg/30 ML UDCUP PO PRN (12:44)
[2018-03-26] MEDS ORDERED: Bisacodyl 10 MG SUPP PR PRN (12:44)
[2018-03-26] MEDS ORDERED: Acetaminophen 325 MG TAB PO PRN (12:44)
[2018-03-26] MEDS ORDERED: Milk Of Magnesia 30 ML UDCUP PO PRN (12:44)
[2018-03-26] MEDS ORDERED: Promethazine HCl 25 MG/ML VIAL IM PRN ×2 (12:44→12:48)
[2018-03-26] MEDS ORDERED: Ondansetron HCl/PF 4 MG/2 ML Vial IVP PRN (12:48)
[2018-03-26] MEDS ORDERED: Promethazine HCl 25 MG/ML VIAL SLOW IVP PRN (12:48)
[2018-03-26] MEDS ORDERED: HYDROmorphone 2 MG/ML VIAL SLOW IVP PRN (12:48)
--- NOTE | 2018-03-26 12:58 | OP ---
OR: 10. SURGEON: Deven Yusfu M.D. DULSER: Elías Martinez PA-C. PREPROCEDURE DIAGNOSES: Low back and left greater than right lower extremity pain with lumbar synovi al cyst and disk extrusion. POSTPROCEDURE DIAGNOSES: Low back and left greater than right lower extremity pain with lumbar synov ial cyst and disk extrusion. PROCEDURES: 1. L3-L4 laminectomy for synovial cyst resection. 2. Left L3-L4 diskectomy for decompression of left L4 nerve root. 3. L4-L5 laminectomy, partial facetectomy, and foraminotomies. 4. L3-L4 laminectomy, partial facetectomy, foraminotomies performed after synovial cyst resection. 5. Use of operative microscope for microdissection. DESCRIPTION OF PROCEDURE: After informed consent was obtained from the patient, the patient brought to OR 10. Proper patient pause identification was carried out. He was placed in excellent general e ndotracheal anesthesia and positioned prone on the OR table. All appropriate points were padded. We identified the midline linear denilson to allow for approach to the L3, L4, L5 segments. This region wa s sterilely cleansed, prepared, and draped. Proper patient pause and identification was carried out. The wound was opened with combination of sharp, monopolar, and blunt dissection following sterile c leansing, preparation, and draping, and the L3, L4, L5 segments were exposed. Localization film conf irmed our area of interest. We then performed L3-L4 and L4-L5 laminectomies, partial facetectomies, and foraminotomies. We then turned our attention to resection of the L3-L4 synovial cyst that was ec centric to the left. A microscope was brought in the field and when I am working over the shoulder o f the traversing left L4 nerve root, disk material was removed and we had excellent decompression of the traversing left L4 nerve root. I assured freedom as well of the left L3 nerve root. We then per formed an L4-L5 laminectomy, partial facetectomy, foraminotomies and I explored the disk space at the left side of L4-L5, but did not think it necessary to pursue diskectomy as we had excellent decompre ssion of the L5 nerve roots bilaterally. Copious irrigation occurred throughout, as did maximizing h emostasis. There was no spinal fluid leak. The wound was closed in anatomic layers following the sp rinkling of vancomycin powder. The patient then emerged from anesthesia.
[2018-03-26] MEDS ORDERED: PROPOFOL 200 MG/20 ML VIAL ONE (14:47)
[2018-03-26] MEDS ORDERED: Metoclopramide HCl 10 MG/2 ML VIAL ONE (14:47)
[2018-03-26] MEDS ORDERED: Glycopyrrolate 0.2 MG/ML 5 ML SYRINGE ONE ×2 (14:47)
[2018-03-26] MEDS ORDERED: Lidocaine 1% PF 5 ML VIAL ONE (14:47)
[2018-03-26] MEDS ORDERED: Ondansetron HCl/PF 4 MG/2 ML Vial ONE (14:47)
[2018-03-26] MEDS ORDERED: Dexamethasone 20 MG/5 ML VIAL ONE (14:47)
[2018-03-26] MEDS: tiZANidine HCl 4 MG TAB PO PRN (14:56)
[2018-03-26] MEDS: Sodium Chloride 0.9% 1,000 ML IV SCH (14:56)
--- NOTE | 2018-03-26 15:39 | EKG ---
Test Reason : PREOP Blood Pressure : / mmHG Vent. Rate : 055 BPM Atrial Rate : 055 BPM P-R Int : 230 ms QRS Dur : 108 ms QT Int : 496 ms P-R-T Axes : 055 047 047 degrees QTc Int : 474 ms Sinus bradycardia with 1st degree A-V block Otherwise normal ECG When compared with ECG of 13-DEC-2017 16:26, T wave inversion no longer evident in Anterior leads Confirmed by DANIA CORREIA, DR. SShayna (4) on 03/26/2018 3:39:43 PM Referred By: LILY Confirmed By:DR. Fina NAJERA MD
[2018-03-26] MEDS ORDERED: CEFAZOLIN/Water 2 GM/20 ML SYRINGE SLOW IVP SCH (17:00)
[2018-03-26] MEDS: traMADol HCl 50 MG TAB PO PRN (18:12)
[2018-03-26] MEDS: CEFAZOLIN/Water 2 GM/20 ML SYRINGE SLOW IVP SCH (18:16)
[2018-03-26] MEDS: Metoprolol Tartrate 50 MG TAB PO SCH (20:19)
[2018-03-26] MEDS: Flecainide 50 MG TAB PO SCH (20:21)
[2018-03-26] MEDS ORDERED: Tamsulosin HCl 0.4 MG CAP PO SCH (21:00)
[2018-03-26] MEDS ORDERED: Rosuvastatin 20 MG TAB PO SCH (21:00)
[2018-03-27] MEDS: Sodium Chloride 0.9% 1,000 ML IV SCH (02:15)
[2018-03-27] MEDS: CEFAZOLIN/Water 2 GM/20 ML SYRINGE SLOW IVP SCH (03:00)
[2018-03-27] MEDS: traMADol HCl 50 MG TAB PO PRN ×2 (03:11→11:46)
[2018-03-27] MEDS: tiZANidine HCl 4 MG TAB PO PRN ×2 (03:11→11:46)
[2018-03-27] MEDS ORDERED: metFORMIN XR 500 MG TAB PO SCH (08:00)
[2018-03-27] MEDS ORDERED: Fluticasone Propionate Nasal Spray 16 gm Bottle NASAL PRN (09:00)
[2018-03-27] MEDS ORDERED: Ketotifen Fumarate 0.025% Ophth Soln 5 ml Bottle EA EYE PRN (09:00)
[2018-03-27] MEDS: Metoprolol Tartrate 50 MG TAB PO SCH (09:34)
[2018-03-27] MEDS: Flecainide 50 MG TAB PO SCH (09:40)
[2018-03-27 11:58] VITALS: BP 166/77; TEMP 97.8
--- NOTE | 2018-03-28 12:20 | DIS ---
DATE OF ADMISSION: 03/26/2018 DATE OF DISCHARGE: 03/27/2018 DISCHARGE DIAGNOSES: 1. Lumbar spinal stenosis. 2. Lumbar radiculopathy. HOSPITAL COURSE: Mr. Antonio was admitted to undergo L3-L5 laminectomies, foraminotomies, partial fac etectomies, and diskectomy. His surgery was without complication and he required 1 overnight stay fo r recovery. At the time of discharge, he had complete resolution of his bilateral lower extremity sy mptoms with some incisional back pain. He has good strength in the bilateral lower extremities and n o drainage from his incision. He met criteria for discharge and appropriate postoperative appointmen ts and education was provided to the patient. At the time of discharge, the patient was doing well a nd understood to call the office with questions or concerns prior to his next follow up. Elías Martinez PA-C dictating for Dr. Deven Yusuf.
== END 2018-03-27 13:14 | disposition home or self-care (01) ==
LOC: SDC 07:32 → SJJU 13:55 → SDC 03-27 13:14
PROVIDERS: ATTEND Surgery
PROC: 00NY0ZZ Release Lumbar Spinal Cord, Open Approach (ICD-10-PCS; principal; 2018-03-26)
DX: M51.16 Intervertebral disc disorders with radiculopathy, lumbar region (principal); M71.38 Other bursal cyst, other site; M48.061 Spinal stenosis, lumbar region without neurogenic claudication; Z88.5 Allergy status to narcotic agent; Z88.8 Allergy status to other drugs, medicaments and biological substances
CPT/HCPCS: 76001; 93005; 93010; 96374; 96375; 96376; A4216; J0131; J1100; J2001; J2405; J2704; J2765; J3010; J3370; J3490

== ENCOUNTER 2018-04-15 11:08 | Outpatient (CLI) | payer BC, MEDICARE ==
--- NOTE | 2018-04-15 13:11 | RAD ---
RIGHT SHOULDER THREE VIEWS: History: Shoulder pain after fall. FINDINGS: There are arthritic changes of the AC joint. There is a subacromial spur present. There are some mild arthritic changes of the glenohumeral joint space. There are no signs of fracture or dislocation. IMPRESSION: No evidence of fracture. POS: [facility]
== END 2018-04-15 11:09 | disposition home or self-care (01) ==
LOC: SCSRAD 11:08
PROVIDERS: ATTEND Nurse Practitioner Family
DX: M25.511 Pain in right shoulder (principal)

== ENCOUNTER 2018-12-23 09:00 | Outpatient (CLI) | payer BC, MEDICARE ==
--- NOTE | 2018-12-23 10:15 | MRI ---
EXAM: Right shoulder MRI without contrast: HISTORY: Right shoulder pain with limited range of motion COMPARISON: None FINDINGS: Multiplanar, multisequence MRI examination of the shoulder is performed. A C joint:Severe AC joint arthrosis with undersurface spurring of the distal clavicle downsloping of the anterior and lateral acromion with considerable fluid in the subacromial subdeltoid bursa and adjacent abnormal marrow edema. Supraspinatus tendon: Complete irregular retracted tear back to the region between the humeral dome g lenoid. Infraspinatus tendon: Evidence for tendinopathy. Biceps tendon: Somewhat thinned but otherwise intact biceps tendon. Subscapularis tendon: Irregular full-thickness tearing of the superior component as well as interstit ial and delaminating tears in the midportion. Rotator cuff muscles: Moderate to severe decreased muscle volume loss of the supraspinatus muscle Glenoid labrum: Irregular degenerated blunted labrum. No acute osteochondral defect. IMPRESSION: Irregular retracted complete supraspinatus tendon tear. Tears of the subscapularis tendon. Moderate t o severe muscle volume loss of the supraspinatus muscle. Severe AC joint arthrosis. Blunted degenerated labrum.
== END 2018-12-23 09:01 | disposition home or self-care (01) ==
LOC: BICMRI 09:00
PROVIDERS: ATTEND Orthopaedic Surgery
DX: M25.511 Pain in right shoulder (principal)
CPT/HCPCS: 36415; 84153

== ENCOUNTER 2019-01-09 13:50 | Emergency (ER) | payer BC, MEDICARE ==
[2019-01-09] MEDS ORDERED: Diltiazem 125 MG/25 ML ONE (14:04)
[2019-01-09] MEDS ORDERED: Sodium Chloride 0.9% 0 ML ONE (14:05)
[2019-01-09 14:23] LABS: #Eosinphils 0.3 thou/uL (0.0-0.7); #Lymphocytes 1.2 thou/uL (1.20-3.40); #Monocytes 0.9 thou/uL (0.11-0.59); #Neutrophils 5.3 thou/uL (1.40-6.50); %Basophils 0.4 % (0.0-1.0); %Eosinophils 3.5 % (0.0-10.0); %Lymphocytes 15.5 % (21.0-51.0); %Monocytes 11.4 % (0.0-10.0); %Neutrophils 69.2 % (42.0-75.0); Hemoglobin 12.9 g/dL (14.0-18.0); Mean Corpuscular HGB CONC 33.5 g/dL (32.0-36.0); Mean Corpuscular Hemoglobin 31.5 pg (27.0-31.0); Mean Corpuscular Volume 94.1 fL (78.0-98.0); Platelet Count 220 thou/uL (130-400); RBC Distribution Width 11.2 % (11.5-14.5); Red Blood Cell (RBC) Count 4.08 mill/uL (4.70-6.10); White Blood Cell (WBC) Count 7.6 thou/uL (4.8-10.8)
[2019-01-09 14:43] LABS: ALT (SGPT) 23 U/L (8-55); AST (SGOT) 27 U/L (5-34); Albumin 4.5 g/dL (3.4-4.8); Alkaline Phosphatase 50 U/L (40-150); Anion Gap 16 mmol/L (10-20); BUN (Urea Nitrogen) 9 mg/dL (8.4-25.7); Bilirubin, Total 0.6 mg/dL (0.2-1.2); CK (CPK) 89 U/L (30-200); Calc. Creatinine Clearance 0 mL/min (70-130); Calcium 9.5 mg/dL (7.8-10.44); Carbon Dioxide 23 mmol/L (23-31); Chloride 100 mmol/L (98-107); Estimated GFR-MDRD 75; Globulin 2.7 g/dL (2.4-3.5); Glucose 134 mg/dL (83-110); Magnesium 1.4 mg/dL (1.6-2.6); Protein, Total 7.2 g/dL (5.8-8.1); Sodium 135 mmol/L (136-145)
--- NOTE | 2019-01-09 15:07 | RAD ---
SINGLE VIEW CHEST: Date: 01/09/19 COMPARISON: 11/16/16. HISTORY: Chest pain. FINDINGS: Single view of the chest shows normal sized cardiomediastinal silhouette with atherosclerotic calcifi cations in the aorta. There is no evidence of consolidation, mass, or pleural effusion. Atherosclerot ic calcifications are seen in the aorta. IMPRESSION: No evidence of acute cardiopulmonary disease. POS: [facility]
== END 2019-01-09 16:20 | disposition home or self-care (01) ==
LOC: ERS 13:50
DX: I48.92 Unspecified atrial flutter (principal); E11.9 Type 2 diabetes mellitus without complications; E78.5 Hyperlipidemia, unspecified; I10 Essential (primary) hypertension; Z87.891 Personal history of nicotine dependence
CPT/HCPCS: 71045; 80053; 82550; 83735; 84484; 85025; 93005; 94760; 96374; J3490

== ENCOUNTER → 2019-01-17 | Day surgery (SDC) | payer BC, MEDICARE ==
[2019-01-16 17:41] VITALS: BMI 23.7
[~2019-01-17] MED LIST: Lidocaine 1% PF 5 ML VIAL ONE; PROPOFOL 20 ML ONE; PROPOFOL 200 MG/20 ML VIAL ONE
[2019-01-17 10:39] LABS: #Eosinphils 0.3 thou/uL (0.0-0.7); #Lymphocytes 0.9 thou/uL (1.20-3.40); #Monocytes 0.6 thou/uL (0.11-0.59); #Neutrophils 4.2 thou/uL (1.40-6.50); %Basophils 0.2 % (0.0-1.0); %Eosinophils 4.2 % (0.0-10.0); %Lymphocytes 15.2 % (21.0-51.0); %Monocytes 10.6 % (0.0-10.0); %Neutrophils 69.8 % (42.0-75.0); Mean Corpuscular HGB CONC 33.5 g/dL (32.0-36.0); Mean Corpuscular Hemoglobin 32.2 pg (27.0-31.0); Mean Corpuscular Volume 96.1 fL (78.0-98.0); Mean Platelet Volume 7.4 fL (7.4-10.4); Platelet Count 180 thou/uL (130-400); RBC Distribution Width 11.1 % (11.5-14.5); Red Blood Cell (RBC) Count 4.03 mill/uL (4.70-6.10)
[2019-01-17 10:44] LABS: INR-International Normal Ratio 1.4; PTT 50.9 SEC (22.9-36.1); Prothrombin Time 17.1 SEC (12.0-14.7)
[2019-01-17 10:57] LABS: Anion Gap 12 mmol/L (10-20); BUN (Urea Nitrogen) 12 mg/dL (8.4-25.7); Calc. Creatinine Clearance 70 mL/min (70-130); Calcium 9.5 mg/dL (7.8-10.44); Carbon Dioxide 23 mmol/L (23-31); Chloride 103 mmol/L (98-107); Estimated GFR-MDRD 65; Glucose 129 mg/dL (83-110); Potassium 4.4 mmol/L (3.5-5.1); Sodium 134 mmol/L (136-145)
--- NOTE | 2019-01-17 17:19 | EKG ---
Test Reason : PRE CARDIOVERSION Blood Pressure : / mmHG Vent. Rate : 085 BPM Atrial Rate : 085 BPM P-R Int : 200 ms QRS Dur : 098 ms QT Int : 406 ms P-R-T Axes : 103 023 036 degrees QTc Int : 483 ms Normal sinus rhythm Prolonged QT Abnormal ECG When compared with ECG of 09-JAN-2019 14:23, Previous ECG has undetermined rhythm, needs review Criteria for Septal infarct are no longer Present Confirmed by DR. Franck MOODY (3) on 01/17/2019 5:19:31 PM Referred By: QUOC Confirmed By:DR. Franck MOODY
--- NOTE | 2019-01-20 09:14 | OP ---
DATE OF PROCEDURE: 01/17/2019 REFERRING PHYSICIAN: Dr. Danny Metz. REASON FOR PROCEDURE: Mr. Antonio is a 73-year-old man with prior history of atrial arrhythmias, prior ablation in 07/2015, now has late recurrence of atypical atrial flutter, here for a planned cardioversion. DESCRIPTION OF PROCEDURE: The patient received propofol by Anesthesia specialist. After adequate level of sedation achieved, a synchronized 50 joule did not convert the patient back, but the followup 125 joule shock converted him back to sinus rhythm, rate of about 70 beats per minute. The patient tolerated the procedure well. No complications noted. PLAN: 1. Continue monitoring for recurrent arrhythmias. 2. Continue uninterrupted anticoagulation. 3. Continue flecainide twice a day and plan redo ablation in the near future. Job ID: [id number]
== END ==
LOC: SDC 08:43
PROVIDERS: ATTEND Internal Medicine Cardiovascular Disease
PROC: 5A2204Z Restoration of Cardiac Rhythm, Single (ICD-10-PCS; principal; 2019-01-17)
DX: I48.4 Atypical atrial flutter (principal); I48.1 Persistent atrial fibrillation; I10 Essential (primary) hypertension; E11.9 Type 2 diabetes mellitus without complications; Z88.5 Allergy status to narcotic agent; Z88.8 Allergy status to other drugs, medicaments and biological substances; Z79.01 Long term (current) use of anticoagulants; Z79.84 Long term (current) use of oral hypoglycemic drugs; Z79.899 Other long term (current) drug therapy
CPT/HCPCS: 36415; 80048; 85025; 85610; 85730; 92960; 93005; 93010; J2001; J2704

== ENCOUNTER 2019-02-25 05:46 | Observation (INO) | payer BC, MEDICARE ==
[2019-02-24 10:04] VITALS: BMI 23.1
[2019-02-25] MEDS ORDERED: Heparin 10,000 UNITS/1 ML VIAL ONE ×2 (06:46→09:41)
[2019-02-25 06:51] LABS: INR-International Normal Ratio 1.4; Prothrombin Time 16.7 SEC (12.0-14.7)
[2019-02-25 06:52] LABS: Hemoglobin 11.7 g/dL (14.0-18.0); Mean Corpuscular HGB CONC 34.6 g/dL (32.0-36.0); Mean Corpuscular Hemoglobin 32.4 pg (27.0-31.0); Mean Corpuscular Volume 93.6 fL (78.0-98.0); Mean Platelet Volume 6.7 fL (7.4-10.4); PTT 54.2 SEC (22.9-36.1); Platelet Count 166 thou/uL (130-400); RBC Distribution Width 11.2 % (11.5-14.5); Red Blood Cell (RBC) Count 3.61 mill/uL (4.70-6.10); White Blood Cell (WBC) Count 3.8 thou/uL (4.8-10.8)
[2019-02-25 06:56] LABS: Anion Gap 13 mmol/L (10-20); BUN (Urea Nitrogen) 9 mg/dL (8.4-25.7); Calc. Creatinine Clearance 70 mL/min (70-130); Calcium 9.2 mg/dL (7.8-10.44); Carbon Dioxide 24 mmol/L (23-31); Chloride 98 mmol/L (98-107); Estimated GFR-MDRD 65; Glucose 113 mg/dL (83-110); Potassium 3.9 mmol/L (3.5-5.1); Sodium 131 mmol/L (136-145)
[2019-02-25] MEDS ORDERED: Lidocaine 1% (PF) 30 ML VIAL ONE (07:10)
[2019-02-25] MEDS ORDERED: Fentanyl 100 MCG/2 ML VIAL ONE (07:27)
[2019-02-25] MEDS ORDERED: Phenylephrine HCL 10 MG/ML VIAL ONE (07:27)
[2019-02-25 07:52] LABS: Band 4 % (5-11); Eosinophils 1 % (0-10); Lymphocytes 26 % (21-51); MDiff Complete? YES; Monocytes 10 % (0-10); Neutrophil 54 % (42-75); RBC Morphology Normal; Reactive Lymphocytes 5 % (0-10)
[2019-02-25] MEDS ORDERED: Isoproterenol 0.2 MG/1 ML AMP ONE ×2 (09:42→09:43)
[2019-02-25] MEDS ORDERED: Protamine Sulfate 50 MG/5 ML VIAL ONE (10:00)
[2019-02-25] MEDS ORDERED: Fluticasone Propionate Nasal Spray 16 gm Bottle NASAL PRN (11:17)
[2019-02-25] MEDS ORDERED: Ketorolac Tromethamine 30 MG/ML VIAL ONE (11:23)
--- NOTE | 2019-02-25 11:25 | OP ---
DATE OF PROCEDURE: 02/25/2019 PROCEDURE PERFORMED: Electrophysiology study with atrial fibrillation radiofrequency ablation (redo). PREOPERATIVE DIAGNOSES: Atypical atrial flutter and atrial fibrillation, persistent. POSTOPERATIVE DIAGNOSES: Atypical atrial flutter and atrial fibrillation. DESCRIPTION OF PROCEDURE: The patient came to the EP lab in a postabsorptive state. Informed consent was obtained. A time-out was called. The patient was sedated by a member of the anesthesia staff. Once the patient was adequately sedated, the right and left femoral regions as well as the right internal jugular region were prepped and draped in usual sterile fashion. Using a modified Seldinger technique and with ultrasound-guided access, access obtained x2 in the right femoral vein, x1 in the left femoral vein, x1 in the right internal jugular vein. A 20-pole catheter was advanced in the right internal jugular vein and placed in with the distal 10 poles in the coronary sinus for left atrial pacing and recording. An ultrasound catheter was advanced in the left femoral vein. For an intraprocedural guidance, two long sheaths were advanced in the right femoral vein for transseptal puncture. Heparin was given as a bolus prior to transseptal puncture with a goal ACT of over 350 milliseconds. After transseptal puncture, a 10-pole circular mapping catheter was advanced to the left atrium and a 3D electroanatomical map was created. It appeared that the previous procedure had ablated all the pulmonary veins with exception of recovery of the left inferior pulmonary vein and areas of the septum. The left atrial appendage had been isolated in the previous procedure and remained isolated. Based on this, radiofrequency was delivered in the areas that were recovered in the posterior wall near the left inferior pulmonary vein and up on the roof. In addition to this, the posterior wall was additionally ablated and the coronary sinus was isolated, 20 mcg of Isuprel was delivered over 10 minutes, resulting in multiple foci of firing. As such additional ablation in the superior vena cava was performed. The patient had some occasional organized rhythms, but mostly went from rhythm to rhythm, and ultimately, was cardioverted. 26 minutes of radiofrequency were delivered in total. The patient tolerated the procedure well. Catheters were removed. Sheaths were removed and protamine was delivered. Hemostasis was obtained by placement of Vascade devices. CONCLUSIONS: 1. Successful radiofrequency ablation for atrial fibrillation. 2. Left atrial appendage previously isolated, remained isolated. 3. Successful isolation of coronary sinus. 4. Successful isolation of superior vena cava. 5. Successful ablation of the posterior wall on the roof as well as left inferior pulmonary vein. RECOMMENDATIONS: The patient will be at bedrest and will follow up with electrophysiology in 6 to 8 weeks. Job ID: [id number]
[2019-02-25] MEDS ORDERED: Ketorolac Tromethamine 30 MG/ML VIAL IVP SCH (11:30)
[2019-02-25] MEDS ORDERED: hydrALAZINE 20 MG/ML VIAL ONE (13:34)
[2019-02-25] MEDS ORDERED: Ondansetron PF 4 MG/2 ML Vial ONE (17:09)
[2019-02-25] MEDS ORDERED: Glycopyrrolate 0.2 MG/ML 5 ML SYRINGE ONE (17:09)
[2019-02-25] MEDS ORDERED: Rocuronium Bromide 10 MG/ML (10ML VIAL) ONE (17:09)
[2019-02-25] MEDS ORDERED: PROPOFOL 200 MG/20 ML VIAL ONE (17:09)
[2019-02-25] MEDS ORDERED: PHENYLEPHRINE-NS 100 MCG/ML 10 ML SYRINGE ONE (17:09)
[2019-02-25] MEDS: Sucralfate 1 GM TAB PO SCH ×2 (19:56→21:19)
[2019-02-25] MEDS: metFORMIN 500 MG TAB PO SCH (19:57)
[2019-02-25] MEDS ORDERED: Rosuvastatin 20 MG TAB PO SCH (21:00)
[2019-02-25] MEDS ORDERED: Tamsulosin HCl 0.4 MG CAP PO SCH (21:00)
[2019-02-25] MEDS: Flecainide 50 MG TAB PO SCH (21:19)
[2019-02-25] MEDS: Apixaban 5 MG TAB PO SCH (21:20)
[2019-02-25] MEDS: Ketotifen Fumarate 0.025% Ophth Soln 5 ml Bottle EA EYE SCH (21:21)
[2019-02-25] MEDS ORDERED: Acetaminophen 325 MG TAB PO PRN (23:05)
[2019-02-26] MEDS: Apixaban 5 MG TAB PO SCH (09:03)
[2019-02-26] MEDS: metFORMIN 500 MG TAB PO SCH (09:03)
[2019-02-26] MEDS: Sucralfate 1 GM TAB PO SCH ×2 (09:04→14:11)
[2019-02-26] MEDS: Ketotifen Fumarate 0.025% Ophth Soln 5 ml Bottle EA EYE SCH (09:05)
[2019-02-26] MEDS: Flecainide 50 MG TAB PO SCH (09:51)
[2019-02-26] MEDS ORDERED: Metoprolol Tartrate 50 MG TAB PO SCH ×2 (12:00→21:00)
[2019-02-26 16:14] VITALS: BP 116/58; TEMP 98.9
--- NOTE | 2019-02-27 04:41 | DIS ---
DATE OF ADMISSION: 02/25/2019 DATE OF DISCHARGE: 02/26/2019 REFERRING PHYSICIAN: Sonu Mckinley MD, Primary Care. ADMITTING DIAGNOSES: 1. Long-standing persistent atrial fibrillation with prior ablation on 07/13/2015. 2. Recurrent atrial arrhythmias, not responding to flecainide, prompting a pulmonary venous isolation procedure on 02/25/2019 and redo ablation was performed by Dr. Lau. 3. History of orthostatic syncope. 4. History of gastrointestinal bleed prompting PPI therapy. 5. History of type 2 diabetes and hypertension. 6. History of chronic back pain. HOSPITAL COURSE: Mr. Antonio was admitted for elective pulmonary venous isolation procedure, which he underwent yesterday. He remained stable overnight, but this morning, sustained atrial flutter with rapid rate. His flecainide which was held for about a week was restarted with 100 mg dose. Eventually about 4 hours later, he converted back to sinus rhythm. Otherwise, no new issues noted. He remains hemodynamically stable. No dizziness or loss of consciousness. No stroke-like symptoms. No neurological deficits. With rapid heartbeats, he described some milder to moderate palpitations. PHYSICAL EXAMINATION: VITAL SIGNS: Blood pressure 116/58, heart rate 78, respirations 16, temperature 98.9 degrees Fahrenheit. GENERAL: Reveals an alert and oriented man, in no apparent distress. NECK: Supple. Hepatojugular reflux is positive. CHEST: Coarse without crackles. HEART: Heart sounds are regular rate and rhythm. No murmur, gallop, or rub is appreciated. ABDOMEN: Benign. Bowel sounds positive. Groin sites are without major hematoma reaction. EXTREMITIES: Lower extremities without edema, clubbing, or cyanosis. ASSESSMENT AND PLAN: Mr. Antonio is a pleasant 73-year-old man with history of persistent atrial fibrillation with recurrence despite prior ablation, who underwent a redo ablation by Dr. Lau yesterday. He had a total of 26 minutes of radiofrequency ablation delivered and was eventually cardioverted. He is stable post ablation, but developed transient atrial flutter episodes, which was treated with resuming flecainide and continuing metoprolol. PLAN: To resume all medications including flecainide 100 mg twice a day, metoprolol tartrate 50 mg twice a day, also continue Eliquis as before. The patient is given prescriptions for Protonix, Carafate, Lasix, and K-Dur. Routine followup will be arranged in 6 weeks. Job ID: [id number]
== END 2019-02-26 17:52 | disposition home or self-care (01) ==
LOC: CCL 05:46 → 2SW 18:43
PROVIDERS: ADMIT Specialist; ATTEND Specialist
PROC: 02583ZZ Destruction of Conduction Mechanism, Percutaneous Approach (ICD-10-PCS; principal; 2019-02-25)
PROC: 02K83ZZ Map Conduction Mechanism, Percutaneous Approach (ICD-10-PCS; 2019-02-25)
PROC: 4A023FZ Measurement of Cardiac Rhythm, Percutaneous Approach (ICD-10-PCS; 2019-02-25)
PROC: 4A0234Z Measurement of Cardiac Electrical Activity, Percutaneous Approach (ICD-10-PCS; 2019-02-25)
DX: I48.4 Atypical atrial flutter (principal); I48.1 Persistent atrial fibrillation; I10 Essential (primary) hypertension; E11.9 Type 2 diabetes mellitus without complications; G89.29 Other chronic pain; M54.5 Low back pain; Z79.01 Long term (current) use of anticoagulants; Z79.84 Long term (current) use of oral hypoglycemic drugs; Z79.899 Other long term (current) drug therapy; Z88.5 Allergy status to narcotic agent; Z88.8 Allergy status to other drugs, medicaments and biological substances; Z98.890 Other specified postprocedural states
CPT/HCPCS: 36415; 76942; 80048; 85025; 85347; 85610; 85730; 93005; 93010; 93613; 93622; 93623; 93655; 93656; 93662; C1731; C1759; C1769; G0378; J0360; J1644; J1885; J2001; J2370; J2405; J2704; J2720; J3010

== ENCOUNTER 2019-03-13 11:58 | Emergency (ER) | payer BC, MEDICARE ==
[2019-03-13 13:18] LABS: #Eosinphils 0.3 thou/uL (0.0-0.7); #Lymphocytes 0.9 thou/uL (1.20-3.40); #Monocytes 0.6 thou/uL (0.11-0.59); #Neutrophils 4.5 thou/uL (1.40-6.50); %Basophils 0.3 % (0.0-1.0); %Eosinophils 5.4 % (0.0-10.0); %Lymphocytes 13.4 % (21.0-51.0); %Monocytes 10.1 % (0.0-10.0); %Neutrophils 70.7 % (42.0-75.0); Hemoglobin 11.8 g/dL (14.0-18.0); Mean Corpuscular HGB CONC 34.2 g/dL (32.0-36.0); Mean Corpuscular Hemoglobin 31.8 pg (27.0-31.0); Mean Corpuscular Volume 92.9 fL (78.0-98.0); Mean Platelet Volume 7.2 fL (7.4-10.4); Platelet Count 218 thou/uL (130-400); RBC Distribution Width 11.3 % (11.5-14.5); Red Blood Cell (RBC) Count 3.71 mill/uL (4.70-6.10); White Blood Cell (WBC) Count 6.4 thou/uL (4.8-10.8)
--- NOTE | 2019-03-13 13:18 | RAD ---
1 VIEW CHEST: Date: 03/13/19 COMPARISON: 01/09/19. HISTORY: Tachycardia. FINDINGS: Atherosclerosis of the aortic knob. Normal cardiac silhouette. Pulmonary vessels and hilum are normal . Costophrenic angles are clear. No mass or consolidation. No pneumothorax or acute osseous abnormali ties. IMPRESSION: 1. Atherosclerosis. 2. No acute cardiopulmonary process. POS: TPC
[2019-03-13 13:53] LABS: ALT (SGPT) 16 U/L (8-55); AST (SGOT) 19 U/L (5-34); Albumin 4.2 g/dL (3.4-4.8); Alkaline Phosphatase 46 U/L (40-150); Anion Gap 13 mmol/L (10-20); BUN (Urea Nitrogen) 9 mg/dL (8.4-25.7); Bilirubin, Total 0.5 mg/dL (0.2-1.2); CK (CPK) 62 U/L (30-200); Calc. Creatinine Clearance 0 mL/min (70-130); Calcium 9.4 mg/dL (7.8-10.44); Carbon Dioxide 26 mmol/L (23-31); Chloride 101 mmol/L (98-107); Estimated GFR-MDRD 65; Globulin 2.1 g/dL (2.4-3.5); Glucose 115 mg/dL (83-110); Potassium 4.6 mmol/L (3.5-5.1); Protein, Total 6.3 g/dL (5.8-8.1); Sodium 135 mmol/L (136-145)
--- NOTE | 2019-03-15 13:39 | EKG ---
Test Reason : ER INDICATION Blood Pressure : / mmHG Vent. Rate : 113 BPM Atrial Rate : 113 BPM P-R Int : 128 ms QRS Dur : 104 ms QT Int : 364 ms P-R-T Axes : 000 031 032 degrees QTc Int : 499 ms Sinus tachycardia Septal infarct , age undetermined Abnormal ECG Confirmed by ADDIE DALY D.O. ([id number]), communications editor ELIZABETH HIGGINBOTHAM ([id number]) on 03/15/2019 1:38:44 PM Referred By: Confirmed By:ADDIE DALY D.O.
== END 2019-03-13 15:38 | disposition home or self-care (01) ==
LOC: ERS 11:58
DX: R00.2 Palpitations (principal); E11.9 Type 2 diabetes mellitus without complications; I10 Essential (primary) hypertension; Z87.891 Personal history of nicotine dependence
CPT/HCPCS: 36415; 71045; 80053; 82550; 83880; 84484; 85025; 93005; 96360

== ENCOUNTER 2019-07-30 10:36 | Outpatient (CLI) | payer BC, MEDICARE ==
--- NOTE | 2019-07-30 11:26 | RAD ---
EXAM: Chest Two Views 07/30/2019 11:23 AM HISTORY: Bronchitis COMPARISON: March 13, 2019 FINDINGS: Heart: Normal in size and contour. Pulmonary vessels: Normal. Costophrenic angles: Clear. Lungs: No acute airspace consolidation. Pneumothorax: None. Osseous structures:Intact. There is scattered degenerative and osteoarthritic change present. Additional findings: Stable vascular calcifications of the aorta. Stable post procedural change of a left-sided rotator cuff repair. IMPRESSION: No significant acute intrathoracic disease.
[2019-07-30 14:26] LABS: Anion Gap 14 mmol/L (10-20); Carbon Dioxide 25 mmol/L (23-31); Chloride 99 mmol/L (98-107); Potassium 4.4 mmol/L (3.5-5.1); Sodium 134 mmol/L (136-145)
[2019-07-30 14:31] LABS: Band 24 % (5-11); Eosinophils 2 % (0-10); Hemoglobin 12.5 g/dL (14.0-18.0); Lymphocytes 10 % (21-51); MDiff Complete? YES; Mean Corpuscular HGB CONC 33.6 g/dL (32.0-36.0); Mean Corpuscular Volume 95.3 fL (78.0-98.0); Mean Platelet Volume 10.8 fL (7.4-10.4); Monocytes 20 % (0-10); Neutrophil 42 % (42-75); Platelet Clumps MODERATE; Platelet Morphology Comment PLT clumps seen-ADEQ; Polychromasia SLIGHT = 2-3 cells (100X) (0-2/hpf); RBC Distribution Width 11.7 % (11.5-14.5); Reactive Lymphocytes 2 % (0-10); Red Blood Cell (RBC) Count 3.91 mill/uL (4.70-6.10); Tear Drops SLIGHT = 2-5 cells (100X) (0-1/hpf); White Blood Cell (WBC) Count 5.9 thou/uL (4.8-10.8)
== END 2019-07-30 10:37 | disposition home or self-care (01) ==
LOC: SCSRAD 10:36
PROVIDERS: ATTEND Nurse Practitioner Family
DX: J40 Bronchitis, not specified as acute or chronic (principal); R41.0 Disorientation, unspecified
CPT/HCPCS: 36415; 71046; 80051; 85025

== ENCOUNTER 2019-12-12 10:31 | Outpatient (CLI) | payer BC, MEDICARE ==
[~2019-12-12 10:31] MED LIST changes: +Iopamidol-370 76% 500 ML 1 ML ONE; -Lidocaine 1% PF 5 ML VIAL ONE; -PROPOFOL 20 ML ONE; -PROPOFOL 200 MG/20 ML VIAL ONE
--- NOTE | 2019-12-12 15:50 | CT ---
CTA OF THE CHEST WITH CONTRAST: 12/12/19 COMPARISON: None. HISTORY: Status post Watchman occlusive device placement in July 2018. Evaluate for left atrial appendage t hrombus. TECHNIQUE: Multiple contiguous axial images were obtained in a CTA of the chest with contrast. Sagittal and cor onal MIP reformats were performed. FINDINGS: The heart is normal in size. Calcifications are seen in the coronary arteries. There is an occlusive device in the left atrial appendage. No flow is seen within the left atrial appendage consistent with appropriate occlusion by the occlusive device. No hilar or mediastinal lymphadenopathy are seen. No suspicious pulmonary nodules are seen. No focal infiltrates are seen in the lungs. No pneumothorax or pleural effusion are seen. Gallbladders are seen in the gallbladder. A cyst is seen in the right kidney measuring 3.9 cm in size . The other visualized subdiaphragmatic structures are unremarkable. Degenerative changes are seen in the spine. The chest wall soft tissues are unremarkable. IMPRESSION: 1. Appropriate occlusion of the left atrial appendage by Watchman atrial occlusive device. 2. Cholelithiasis. POS: JULIANA
== END 2019-12-12 10:32 | disposition home or self-care (01) ==
LOC: BICCT 10:31
PROVIDERS: ATTEND Internal Medicine Cardiovascular Disease
DX: I48.91 Unspecified atrial fibrillation (principal); R06.02 Shortness of breath; K80.20 Calculus of gallbladder without cholecystitis without obstruction; I70.0 Atherosclerosis of aorta
CPT/HCPCS: 71275; Q9967

== ENCOUNTER 2020-03-01 15:15 | Inpatient (IN) | payer BC, MEDICARE ==
[2020-03-02 13:22] VITALS: BMI 23.7
[2020-03-04] MEDS ORDERED: Lidocaine 1% w/Epinephrine 1:100K 20 ML VIAL ONE (09:47)
[2020-03-04] MEDS ORDERED: Morphine 4 MG/ML VIAL ONE (10:03)
[2020-03-04] MEDS ORDERED: Propofol 1,000 MG/100 ML VIAL IV ONE (10:03)
[2020-03-04] MEDS ORDERED: Fentanyl 250 MCG/5 ML VIAL ONE (10:03)
[2020-03-04] MEDS ORDERED: Ondansetron PF 4 MG/2 ML Vial ONE (11:20)
[2020-03-04] MEDS ORDERED: EPHEDRINE 25 MG/5 ML SYRINGE ONE (11:20)
[2020-03-04] MEDS ORDERED: PHENYLEPHRINE-NS 100 MCG/ML 10 ML SYRINGE ONE (11:20)
[2020-03-04] MEDS ORDERED: Labetalol HCl 100 MG/20 ML VIAL ONE (11:20)
[2020-03-04] MEDS ORDERED: PROPOFOL 200 MG/20 ML VIAL ONE (11:20)
[2020-03-04] MEDS ORDERED: Lidocaine 1% PF 5 ML VIAL ONE (11:20)
[2020-03-04] MEDS ORDERED: Dexamethasone 20 MG/5 ML VIAL ONE (11:20)
[2020-03-04] MEDS ORDERED: Rocuronium Bromide 10 MG/ML (10ML VIAL) ONE (11:20)
[2020-03-04] MEDS ORDERED: AFRIN NASAL MIST 15 ML BOT ONE (13:24)
[2020-03-04] MEDS ORDERED: Fentanyl 100 MCG/2 ML VIAL ONE (14:16)
[2020-03-04] MEDS ORDERED: D5 1/4 NS 1,000 ML IV SCH (16:15)
[2020-03-04] MEDS ORDERED: Acetaminophen 650 MG Suppository PR PRN (17:16)
[2020-03-04] MEDS ORDERED: Acetaminophen 325 MG TAB PO PRN (17:16)
[2020-03-04] MEDS ORDERED: Dextrose 50% Abboject 50 ML SYRINGE SLOW IVP PRN (17:21)
[2020-03-04] MEDS ORDERED: HumaLOG 300 UNITS/3 ML VIAL SC PRN ×2 (17:21)
[2020-03-04] MEDS ORDERED: Dextrose 5% in Water 1,000 ML IV PRN (17:21)
[2020-03-04] MEDS ORDERED: Promethazine HCl 25 MG/ML VIAL SLOW IVP PRN (17:23)
[2020-03-04] MEDS ORDERED: Hydrocodone-Acetamin 15 ML UDCUP PO PRN (17:23)
[2020-03-04] MEDS ORDERED: Cepastat Lozenges 1 LOZ PO PRN (17:23)
[2020-03-04] MEDS ORDERED: Promethazine 25 MG TAB PO PRN (17:23)
[2020-03-04] MEDS: metFORMIN 500 MG TAB PO SCH (17:30)
[2020-03-04] MEDS ORDERED: Acetaminophen/Codeine 30-300mg Tablet PO PRN ×2 (17:52→17:53)
--- NOTE | 2020-03-04 18:33 | CON ---
DATE OF CONSULTATION: 03/04/2020 TIME OF ASSESSMENT: 1700 hours. REASON FOR CONSULTATION: Medical management. HISTORY OF PRESENT ILLNESS: Mr. Antonio is a 74-year-old gentleman who is status post a modified neck dissection done earlier today by Dr. Amaya who has been referred for medical management due to history of hypertension, hyperlipidemia, and diabetes. The patient underwent a CT of the neck on 02/13/2020, at which time he was found to have an enlarged right level 2 lymph node worrisome for metastasis. He was recommended an FNA, which did confirm malignancy. 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 He reports having mild throat soreness since the procedure. He states he feels ready to eat and was just calling down to order food. He has been placed on a clear liquid diet. Denies having any nausea or vomiting. Denies any chest pain or shortness of breath. He reports mild discomfort at the site of the RALEIGH drain, but states it is tolerable. All other review of systems is negative. PAST MEDICAL HISTORY: 1. Diabetes mellitus, type 2. 2. Hypertension. 3. Hyperlipidemia. 4. Diabetic peripheral neuropathy. 5. Dermatophytosis. 6. BPH. 7. Iodce-Ofvriuxyf-Crzsc syndrome in 1989, follows Dr. Metz. 8. Spinal stenosis at L3-L4. 9. Degenerative disk disease of the thoracic and lumbar spine, Dr. Mallory. 10. Spondylolisthesis. 11. History of colon polyps, follows Dr. Nino. Last colonoscopy was in 2013. 12. History of prostate cancer diagnosed in January 2013, status post radiation, Dr. Graham. 13. History of atrial flutter, status post ablation in August 2019. 14. Daily alcohol consumption. PAST SURGICAL HISTORY: 1. Tonsillectomy. 2. Right hand surgery. 3. Colonoscopy. 4. Left rotator cuff surgery. 5. Cardiac ablation. 6. Laminectomy in March 2019. 7. Redo ablation for atrial fibrillation in January 2019. 8. Watchman device placement. SOCIAL HISTORY: The patient lives with his . He is fully independent and mobilizes without the use of assistive devices. He reports smoking years ago and quit in 1981. He reports daily alcohol consumption of at least 3 to 4 glasses of wine every day. Denies any history of alcohol withdrawal or alcohol withdrawal seizures. Denies any illicit drug use. FAMILY HISTORY: 1. He states his father is and of complications due to heart disease. He had a CABG. 2. His mother is as well and was diagnosed with throat cancer. He states she was a heavy smoker. ALLERGIES: 1. HYDROCODONE CAUSES FACIAL SWELLING. 2. LORATADINE CAUSES URINARY RETENTION. CURRENT MEDICATIONS: 1. Tamsulosin. 2. Metformin. 3. Amlodipine. 4. Metoprolol. 5. Rosuvastatin. 6. Aspirin. PHYSICAL EXAMINATION: GENERAL: The patient appears well developed, well nourished, is in no acute distress. He is resting comfortably in bed. VITAL SIGNS: Temperature 98.1, pulse 82, blood pressure 153/71, respirations 18, O2 saturation 98% on room air. HEENT: Normocephalic, atraumatic. Pupils are equal, round, and reactive to light. Sclerae are without icterus. Oropharynx is clear. NECK: Right side of neck with minimal swelling and with a RALEIGH drain in place in right side of neck. CARDIAC: Regular rate and rhythm. LUNGS: Clear to auscultation. ABDOMEN: Soft, nontender, nondistended. Normoactive bowel sounds present. No guarding or rigidity. No renal angle tenderness. EXTREMITIES: No lower leg swelling or edema. NEUROLOGIC: Alert and oriented x3. SKIN: Warm and dry. LABORATORY DATA: The patient had laboratory studies done prior to admission on 03/01/2020. He had a BMP, which showed sodium of 137, potassium 3.8, BUN 10, creatinine 1.31, GFR 54, glucose 149, calcium 9.1. COVID testing done at that time was negative. Preoperative EKG done on 03/01/2020 showed normal sinus with occasional PVCs and a heart rate of 77. IMPRESSION AND PLAN: Mr. Antonio is a 74-year-old gentleman who is status post modified right-sided neck dissection for squamous cell carcinoma, who has been referred for medical management of the followin. Hypertension. The patient states blood pressure was well controlled at home. Home medications have been reconciled. We will continue to monitor blood pressure. 2. Diabetes mellitus. Home medications have been already reconciled. We will initiate sliding scale and monitor glucose. He has been placed on clear liquid diet by surgical team for now. 3. Hyperlipidemia. Rosuvastatin has been restarted. 4. Benign prostatic hypertrophy. The patient is on tamsulosin at home, which has been restarted as well. No urinary symptoms at present. 5. Sore throat. We will give cepastat lozenges. 6. Squamous cell carcinoma. Status post dissection. Per surgical team, the patient will be undergoing radiation therapy. Apparently, plan is for him to be discharged most likely tomorrow and follow up as an outpatient for removal of the Ksehav-Talbert drain. The patient states he has been referred to Oncology for further recommendations. 7. Gastrointestinal prophylaxis with famotidine. 8. Deep venous thrombosis prophylaxis with mechanical sequential compression devices. 9. Code status, full. Surrogate decision maker is his , Nain Antonio. Case was discussed with attending who agrees upon the care as described above. Job ID: [id number]
[2020-03-04] MEDS: Famotidine/PF 20 mg/2ml Vial SLOW IVP SCH (20:13)
[2020-03-04] MEDS: Metoprolol Tartrate 50 MG TAB PO SCH (20:14)
[2020-03-04] MEDS ORDERED: Rosuvastatin 20 MG TAB PO SCH (21:00)
[2020-03-04] MEDS ORDERED: Tamsulosin HCl 0.4 MG CAP PO SCH (21:00)
[2020-03-05 05:59] LABS: #Lymphocytes 0.4 thou/uL (1.20-3.40); #Monocytes 0.6 thou/uL (0.11-0.59); #Neutrophils 7.8 thou/uL (1.40-6.50); %Eosinophils 0.1 % (0.0-10.0); %Lymphocytes 4.6 % (21.0-51.0); %Neutrophils 88.3 % (42.0-75.0); Mean Corpuscular HGB CONC 33.6 g/dL (32.0-36.0); Mean Corpuscular Hemoglobin 32.3 pg (27.0-31.0); Mean Corpuscular Volume 96.2 fL (78.0-98.0); Mean Platelet Volume 7.5 fL (7.4-10.4); Platelet Count 165 thou/uL (130-400); RBC Distribution Width 11.9 % (11.5-14.5); Red Blood Cell (RBC) Count 3.39 mill/uL (4.70-6.10); White Blood Cell (WBC) Count 8.8 thou/uL (4.8-10.8)
[2020-03-05 06:10] LABS: Anion Gap 15 mmol/L (10-20); BUN (Urea Nitrogen) 10 mg/dL (8.4-25.7); Calc. Creatinine Clearance 68 mL/min (70-130); Calcium 8.2 mg/dL (7.8-10.44); Carbon Dioxide 24 mmol/L (23-31); Chloride 102 mmol/L (98-107); Estimated GFR-MDRD 63; Glucose 163 mg/dL (83-110); Potassium 3.5 mmol/L (3.5-5.1); Sodium 137 mmol/L (136-145)
[2020-03-05 06:13] VITALS: TEMP 97.9
[2020-03-05 08:03] VITALS: BP 134/71
[2020-03-05] MEDS: Metoprolol Tartrate 50 MG TAB PO SCH (08:15)
[2020-03-05] MEDS: metFORMIN 500 MG TAB PO SCH (08:15)
[2020-03-05] MEDS: Famotidine/PF 20 mg/2ml Vial SLOW IVP SCH (08:16)
[2020-03-05] MEDS ORDERED: Clopidogrel Bisulfate 75 MG TAB PO SCH (09:00)
[2020-03-05] MEDS ORDERED: Amlodipine 10 MG TAB PO SCH (09:00)
[2020-03-05] MEDS ORDERED: Aspirin 81 mg Enteric Coated Tablet PO SCH (09:00)
--- NOTE | 2020-03-09 13:55 | OP ---
DATE OF PROCEDURE: 03/04/2020 PREOPERATIVE DIAGNOSIS: Right squamous cell carcinoma of the neck. POSTOPERATIVE DIAGNOSIS: Right squamous cell carcinoma of the neck. PROCEDURES PERFORMED: 1. Right modified neck dissection. 2. Direct laryngoscopy. ELECTRONIC [employer]TEGRATED SYSTEMS MECHANIC: Dr. Nelson Galvez. FINDINGS: The patient had a large mass in the right jugulodigastric region. PROCEDURE IN DETAIL: After consent was obtained, the patient was identified, brought to the operating room, and placed on the operative table in supine position. General endotracheal anesthesia was obtained. The patient was positioned for surgery. The patient underwent systematic evaluation of the oral cavity, oropharynx, hypopharynx, and larynx with a direct laryngoscope. We also used a glide scope to examine the tongue base region. No abnormalities were identified. The nasal endoscope was used to examine the nasopharynx and again, no lesions were identified. Satisfied that the primary could not be found, we proceeded with prepping and draping the neck and positioned the patient for right neck incision. The decision was made to perform a modified neck dissection, and an incision was made from behind the ear and extended down the neck and into the anterior aspect of the neck. The incision was made with a 15 blade and then carried down through the platysma with electrocautery. The platysmal flaps were then elevated inferiorly and superiorly and secured in place with estela. We then were able to proceed with a neck dissection. The neck dissection involved zone 1, 2, 3 and 4 of the lymphatics. We made an incision. We identified the digastric muscle and the sternocleidomastoid muscle and was collect the lymphatics between the two. We initially started anteriorly below the submandibular gland and identified the lymphatics and removed the lymphatics inferior to the anterior aspect of the digastric muscle. We then extended and we identified the spinal accessory nerve and addressed the lymphatics junction between the digastric muscle with some . At that point, we identified the jugular vessels and we carefully removed the lymphatics and dissected them inferiorly away from the . We then turned our attention to the along the posterior aspect of the and identify the roots. We were able to follow the plane posteriorly and down to the level of the . At this point, the lymphatics were then dissected anteriorly, where we sharply dissected over the great vessels . At this point, we were able to involve the remove the lymphatics . These were marked and then sent for Bleeding points were ligatures, hemoclips or bipolar depending on bleeding . We were able to preserve the . A #10 round drain placed in the wound, and the flaps were reapproximated with 4-0 Monocryl for the platysma and 6-0 Prolene . Sterile dressing was applied. The patient was taken to recovery room in stable condition prior to 23-hour observation admission Job ID: [id number]
--- NOTE | 2020-03-18 04:49 | PQF ---
CLINICAL DOCUMENTATION CLARIFICATION FORM: Dear : Scott Amaya Date / Time: 03/18/2020447 Please exercise your independent, professional judgment in responding to the clarification form. Clinical indicators are provided on the bottom of this form for your review Final Diagnosis on the Pathology report: Metastatic Squamous cell carcinoma, One out of seventeen lymph notes positive for metastatic carcinoma Clarification of Pathology report: Please check appropriate box(es): [ ] Agree w the pathology finding of: Metastatic Squamous cell carcinoma, One out of seventeen lymph notes positive for metastatic carcinoma [ ] Other explanation of pathology findings (please specify) [ ] Other diagnosis [ ] Unable to determine Physician Signature: Date/Time: For continuity of documentation, please document condition throughout progress notes and discharge summary. Thank You. To be completed by CDI/Coding staff for physician review: Present Clinical Indicators - Signs / Symptoms / Labs Results and Location in Medical Record [X] Metastatic Squamous cell carcinoma, One out of seventeen lymph notes positive for metastatic carcinoma Pathology report 03/04 Dr Gil [X] found have an enlarge right level of lymph note worrisome for metastasis Consult 03/04 Dr Muhammad [X] Findings: The patient has a large mass in the right jugulodigastric region Operative report 03/04 Dr Amaya Present Risk Factors Results and Location in Medical Record [X] 74 year-old Male Consult 03/04 Dr Muhammad [X] DM with peripheral neuropathy Consult 03/04 Dr Muhammad [X] HTN Consult 03/04 Dr Muhammad [X] HLD Consult 03/04 Dr Muhammad [X] Right squamous cell carcinoma of the neck Operative report 03/04 Dr Amaya [X] Former Smoker HP Scannned 03/04 [X] Family History of cancer HP Scannned 03/04 Present Treatments Results and Location in Medical Record [X] Radical modified neck dissection Operative report 03/04 Dr Amaya [X] Direct laryngoscopy Operative report 03/04 Dr Amaya [X] IVF SEP 07 CDS/[address] Administrator Signature: Ilda Kaiserpatricia Phone #: [phone] Date/Time: 03/18/20200 This is a permanent part of the Medical Record [facility]
== END 2020-03-05 09:40 | disposition home or self-care (01) | DRG 130 ==
LOC: INTOOBSV 03-04 08:17 → UNDOADMOB 03-04 08:17 → SURG A 03-04 08:17 → UNDOADMOB 03-04 09:08 → SURG A 03-04 09:08 → OBSVTOIN 03-04 15:57 → UNDODISOB 03-05 09:40
PROVIDERS: ADMIT Specialist; ATTEND Specialist
PROC: 07T10ZZ Resection of Right Neck Lymphatic, Open Approach (ICD-10-PCS; principal; 2020-03-04)
PROC: 0CJS8ZZ Inspection of Larynx, Via Natural or Artificial Opening Endoscopic (ICD-10-PCS; 2020-03-04)
DX: C76.0 Malignant neoplasm of head, face and neck (principal); I10 Essential (primary) hypertension; E78.5 Hyperlipidemia, unspecified; E11.42 Type 2 diabetes mellitus with diabetic polyneuropathy; N40.0 Benign prostatic hyperplasia without lower urinary tract symptoms; J02.9 Acute pharyngitis, unspecified; E07.89 Other specified disorders of thyroid; Z85.46 Personal history of malignant neoplasm of prostate; Z92.3 Personal history of irradiation; Z87.891 Personal history of nicotine dependence; Z79.899 Other long term (current) drug therapy; Z79.82 Long term (current) use of aspirin; Z88.8 Allergy status to other drugs, medicaments and biological substances; Z86.010 Personal history of colon polyps; Z79.01 Long term (current) use of anticoagulants; Z79.84 Long term (current) use of oral hypoglycemic drugs
CPT/HCPCS: 36415; 36416; 80048; 85025; 88307; 88341; 88342; 96361; 96374; 96376; G0378; J1100; J2270; J2405; J2704; J3010; S0028

== ENCOUNTER 2020-03-25 11:42 | Outpatient (CLI) | payer BC, MEDICARE ==
--- NOTE | 2020-03-25 14:50 | PET ---
PET SCAN WITH CT ATTENUATION CORRECTION: HISTORY: Squamous cell carcinoma of the right neck. Unknown primary. TECHNIQUE: PET scan with CT attenuation correction is performed from the base of the brain to the proximal thigh s following the intravenous administration of 10.9 mCi of [id number]. FINDINGS: Head and neck: There is mild FDG avidity involving the right aspect of the neck with a sheetlike appe arance compatible with postsurgical change. The maximum SUV is 3.9. There are no hypermetabolic lymph nodes. There is no obvious hypermetabolic activity in the visualized mucosa of the aerodigestiv e tract. Chest: No abnormal FDG avidity. Abdomen and pelvis: No abnormal FDG avidity. CT used for attenuation correction demonstrates a right renal cyst and gallstones. Osseous structures: No abnormal FDG avidity. IMPRESSION: 1. No evidence of hypermetabolic lymph node in the right neck. There are postsurgical changes. 2. No mucosal abnormality is appreciated in the aerodigestive tract. 3. No abnormal fluorodeoxyglucose avidity involving the visualized dermis of the head and neck. 4. Squamous cell carcinoma with metastases noted in a lymph node may be of an occult dermal lesion or possibly mucosal-based lesion that is not fluorodeoxyglucose avid. Consider dermatology consultation and direct visualization of the aerodigestive tract. Results of study conveyed to Dr. Orourke 03/25/2020 at 2:43 PM Code CR Transcribed Date/Time: 03/25/2020 2:57 PM
== END 2020-03-25 11:43 | disposition home or self-care (01) ==
LOC: PET 11:42
PROVIDERS: ATTEND Radiology Radiation Oncology
DX: C77.0 Secondary and unspecified malignant neoplasm of lymph nodes of head, face and neck (principal); C80.1 Malignant (primary) neoplasm, unspecified; Z98.890 Other specified postprocedural states
CPT/HCPCS: 78815; A9552

== ENCOUNTER 2020-04-21 12:10 | Outpatient (CLI) | payer BC, MEDICARE, OTHER ==
[2020-04-22 17:05] LABS: SARS-CoV-2 MS2 Positive; SARS-CoV-2 N Gene Negative; SARS-CoV-2 S Gene Negative; SARS-CoV-2 by NAA Not Detected (NotDetected); SARS-CoV-2 orf1ab Negative
== END 2020-04-21 12:11 | disposition home or self-care (01) ==
LOC: LABBT 12:10
PROVIDERS: ATTEND Internal Medicine Gastroenterology
DX: C80.1 Malignant (primary) neoplasm, unspecified (principal); R13.19 Other dysphagia; R63.0 Anorexia; R63.4 Abnormal weight loss; Z20.828 Contact with and (suspected) exposure to other viral communicable diseases
CPT/HCPCS: 87635; U0003

== ENCOUNTER 2020-04-23 07:18 | Day surgery (SDC) | payer BC, MEDICARE ==
[2020-04-22 14:12] VITALS: BMI 21.8
[2020-04-23] MEDS ORDERED: Fentanyl 100 MCG/2 ML VIAL ONE (08:47)
[2020-04-23] MEDS ORDERED: PROPOFOL 200 MG/20 ML VIAL ONE (10:18)
--- NOTE | 2020-04-23 10:40 | OP ---
DATE OF PROCEDURE: 04/23/2020 PROCEDURE PERFORMED: Esophagogastroduodenoscopy with percutaneous endoscopic gastrostomy tube placement. PREOPERATIVE DIAGNOSIS: Oropharyngeal dysphagia secondary to head and neck cancer and radiation treatments. DESCRIPTION OF PROCEDURE: Informed consent was obtained from the patient. He was sedated with total intravenous anesthesia. The bite block was placed and the endoscope was advanced easily to the second portion of the duodenum and retroflexion was performed in the stomach. The esophagus was normal. The GE junction was normal. The stomach had minimal erythematous gastritis in the antrum. Retroflexed views in the stomach were normal. The pylorus and first and second portions of the duodenum were normal. The stomach was fully insufflated and appropriate site was transilluminated in the left upper quadrant of the left ribs and palpated. The skin was sterilized with chlorhexidine. The patient received Ancef 2 g prior to the procedure. The skin was anesthetized with 5 mL of 1% lidocaine. A 1 cm skin incision was performed and the catheter was placed through the abdominal wall in the stomach under direct visualization easily in one attempt. The wire was placed through the catheter and grasped with a snare and pulled out through the patient's mouth. The 20-Maltese gastrostomy tube was then placed by the pull-through technique. Second-look endoscopy showed the internal bumper to be in good position. The external bumper was placed at 4 cm, which was not tight. The air was suctioned from the stomach. The patient tolerated the procedure well. IMPRESSION: 1. Minimal gastritis in the antrum. 2. Otherwise normal EGD. 3. Successful placement of 20-Maltese percutaneous endoscopic gastrostomy tube. There was a rubber internal bumper. The external bumper was placed at 4 cm. RECOMMENDATIONS: 1. Start feeds in 8 hours. 2. Dietitian consultation. 3. He will come back to the office on Sunday to check the PEG site. Job ID: [id number]
== END 2020-04-23 16:05 | disposition home or self-care (01) ==
LOC: SDC 07:18
PROVIDERS: ATTEND Internal Medicine Gastroenterology
PROC: 0DH63UZ Insertion of Feeding Device into Stomach, Percutaneous Approach (ICD-10-PCS; principal; 2020-04-23)
DX: C76.0 Malignant neoplasm of head, face and neck (principal); R63.0 Anorexia; K29.70 Gastritis, unspecified, without bleeding; F10.10 Alcohol abuse, uncomplicated; D64.9 Anemia, unspecified; I48.91 Unspecified atrial fibrillation; E11.9 Type 2 diabetes mellitus without complications; E78.00 Pure hypercholesterolemia, unspecified; I10 Essential (primary) hypertension; Z79.02 Long term (current) use of antithrombotics/antiplatelets; Z79.84 Long term (current) use of oral hypoglycemic drugs; Z79.82 Long term (current) use of aspirin; Z79.899 Other long term (current) drug therapy; Z88.5 Allergy status to narcotic agent
CPT/HCPCS: 36416; 77336; J0690; J2704; J3010

== ENCOUNTER 2020-05-11 14:19 | Outpatient (CLI) | payer BC, MEDICARE ==
[2020-05-12 10:53] LABS: SARS-CoV-2 MS2 Positive; SARS-CoV-2 N Gene Negative; SARS-CoV-2 S Gene Negative; SARS-CoV-2 by NAA Not Detected (NotDetected); SARS-CoV-2 orf1ab Negative
== END 2020-05-11 14:20 | disposition home or self-care (01) ==
LOC: LABBT 14:19
PROVIDERS: ATTEND Family Medicine
DX: Z20.828 Contact with and (suspected) exposure to other viral communicable diseases (principal)
CPT/HCPCS: 87635; U0003

== ENCOUNTER 2020-05-18 16:23 | Inpatient (IN) | payer BC, MEDICARE ==
[2020-05-18] MEDS ORDERED: Magnesium 2 GM/50 ML BAG (IN WATER) ONE (17:39)
[2020-05-18 17:48] LABS: Hemoglobin 8.4 g/dL (14.0-18.0); Mean Corpuscular Hemoglobin 32.8 pg (27.0-31.0); Mean Corpuscular Volume 96.4 fL (78.0-98.0); Mean Platelet Volume 6.7 fL (7.4-10.4); Platelet Count 234 thou/uL (130-400); RBC Distribution Width 12.5 % (11.5-14.5); Red Blood Cell (RBC) Count 2.55 mill/uL (4.70-6.10); White Blood Cell (WBC) Count 2.7 thou/uL (4.8-10.8)
[2020-05-18 18:02] LABS: Band 17 % (5-11); Dohle Bodies SLIGHT; Lymphocytes 6 % (21-51); MDiff Complete? YES; Monocytes 27 % (0-10); Neutrophil 50 % (42-75); Ovalocytes SLIGHT = 2-5 cells (100X) (0-1/hpf); Platelet Morphology Comment Appears Adequate; Polychromasia SLIGHT = 2-3 cells (100X) (0-2/hpf)
[2020-05-18 18:11] LABS: Anion Gap 14 mmol/L (10-20); BUN (Urea Nitrogen) 23 mg/dL (8.4-25.7); Carbon Dioxide 29 mmol/L (23-31); Chloride 92 mmol/L (98-107); Potassium 3.9 mmol/L (3.5-5.1); Sodium 131 mmol/L (136-145)
[2020-05-18 18:12] LABS: ALT (SGPT) 16 U/L (8-55); AST (SGOT) 17 U/L (5-34); Albumin 3.4 g/dL (3.4-4.8); Alkaline Phosphatase 46 U/L (40-110); Bilirubin, Total 0.5 mg/dL (0.2-1.2); CK (CPK) 25 U/L (30-200); Calc. Creatinine Clearance 0 mL/min (70-130); Estimated GFR-MDRD 63; Globulin 2.8 g/dL (2.4-3.5); Glucose 153 mg/dL (83-110); Lipase 12 U/L (8-78); Protein, Total 6.2 g/dL (5.8-8.1)
[2020-05-18 18:17] LABS: Magnesium 0.9 mg/dL (1.6-2.6)
--- NOTE | 2020-05-18 18:34 | RAD ---
AP CHEST: 05/18/20 HISTORY: Weakness. Lungs appear clear. No infiltrate. Heart and mediastinum unremarkable. IMPRESSION: No acute process identified. POS: AGW
[2020-05-18] MEDS ORDERED: Dextrose 50% Abboject 50 ML SYRINGE SLOW IVP PRN (19:27)
[2020-05-18] MEDS ORDERED: Dextrose 5% in Water 1,000 ML IV PRN (19:27)
[2020-05-18] MEDS ORDERED: HumaLOG 300 UNITS/3 ML VIAL SC PRN (19:27)
[2020-05-18] MEDS ORDERED: Dextrose 5 %-0.45 % NaCl 1,000 ML IV SCH (19:30)
[2020-05-18] MEDS ORDERED: Morphine 4 MG/ML VIAL ONE (19:57)
--- NOTE | 2020-05-18 21:21 | PDOC.BPN ---
- Brief Progress Note [id number] HP dictated
[2020-05-18] MEDS: Famotidine/PF 20 mg/2ml Vial SLOW IVP SCH (22:39)
[2020-05-18] MEDS: Nystatin 500,000 UNITS/5 ML UDCUP SSW SCH (22:39)
[2020-05-18] MEDS: Dextrose 5 % And 0.9 % NaCl 1,000 ML IV SCH (22:40)
--- NOTE | 2020-05-19 01:24 | HP ---
CHIEF COMPLAINT: Nausea and vomiting. HISTORY OF PRESENT ILLNESS: Mr. Antonio is a 74-year-old male with past medical history of squamous cell carcinoma, cancer in lymph nodes, on chemo and radiation therapy, atrial fibrillation, diabetes mellitus type 2, hypertension, hyperlipidemia, presented to the emergency room with nausea and vomiting. The patient is being treated by Dr. Davis, oncologist. The patient had received chemo and radiation. The patient had finished chemotherapy recently. He is still getting intermittent radiation therapy. He also had dissection and removal of some cancerous lymph nodes in his neck. The patient has a PEG tube which he has been using. He has still been vomiting some of the PEG tube feedings. In the emergency room, the patient appeared dehydrated with hyponatremia, hypomagnesemia. Magnesium was 0.9. Sodium was 131. The patient is started on IV fluids, magnesium replacement. The patient denies fever, chills. The patient is being admitted to hospital for further management. PAST MEDICAL HISTORY: As mentioned above in history of present illness. PAST SURGICAL HISTORY: 1. Rotator cuff. 2. Hand surgery. 3. Ablation for atrial fibrillation. SOCIAL HISTORY: The patient is a former tobacco user, used to smoke cigarettes, quit 10 years ago. Lives at home with family. The patient drinks every day less than 5 drinks a day. The patient denies drug use. FAMILY HISTORY: Reviewed and noncontributory. HOME MEDICATIONS: Please see home medication reconciliation form for updated medications. ALLERGIES: ALLERGIC TO HYDROCODONE, LORATADINE. REVIEW OF SYSTEMS: Review of 14 systems negative except what is mentioned in history of present illness. PHYSICAL EXAMINATION: GENERAL: The patient is awake, alert, and appears dehydrated. His speech is hoarse secondary to radiation therapy. VITAL SIGNS: Blood pressure 146/80, pulse is 80, respiratory rate is 18, oxygen saturation is 98% on room air, temperature is 99.5. HEAD AND NECK: Normocephalic. Neck is supple. CHEST: Mucous membranes dry. Fair bilateral air entry. HEART: S1, S2. Regular. ABDOMEN: Soft, nontender. PEG tube in place. NEUROLOGIC: Awake, alert, oriented. PSYCH: Unable to assess. EXTREMITIES: No clubbing, no cyanosis. GENITOURINARY: No suprapubic tenderness. No flank tenderness. LABORATORY DATA: As mentioned above in history of present illness. ASSESSMENT AND PLAN: 1. Intractable nausea and vomiting. 2. Dehydration. 3. Hypomagnesemia. 4. Hyponatremia. 5. On radiation therapy. 6. History of chemotherapy. 7. Diabetes mellitus, type 2. 8. History of atrial fibrillation. 9. Squamous cell carcinoma. PLAN: 1. Admit. 2. IV fluids. 3. Replace magnesium. 4. Monitor and correct electrolytes. 5. Reconcile home medications. 6. DVT prophylaxis as appropriate. 7. Expected length of stay, at least 1 midnight if patient stable. Job ID: [id number]
[2020-05-19 02:37] VITALS: BMI 20.5
[2020-05-19 03:57] LABS: Anion Gap 12 mmol/L (10-20); BUN (Urea Nitrogen) 17 mg/dL (8.4-25.7); Calc. Creatinine Clearance 63 mL/min (70-130); Calcium 7.8 mg/dL (7.8-10.44); Carbon Dioxide 30 mmol/L (23-31); Chloride 94 mmol/L (98-107); Estimated GFR-MDRD 67; Glucose 168 mg/dL (83-110); Potassium 3.3 mmol/L (3.5-5.1); Sodium 133 mmol/L (136-145)
[2020-05-19 04:02] LABS: Band 28 % (5-11); Hemoglobin 8.1 g/dL (14.0-18.0); Hypochromia SLIGHT = 6-15 cells (100X) (0-5/hpf); Lymphocytes 4 % (21-51); MDiff Complete? YES; Mean Corpuscular HGB CONC 35.8 g/dL (32.0-36.0); Mean Corpuscular Hemoglobin 34.2 pg (27.0-31.0); Mean Corpuscular Volume 95.4 fL (78.0-98.0); Mean Platelet Volume 6.6 fL (7.4-10.4); Monocytes 16 % (0-10); Neutrophil 52 % (42-75); Platelet Count 216 thou/uL (130-400); Platelet Morphology Comment Appears Adequate; RBC Distribution Width 12.4 % (11.5-14.5); Red Blood Cell (RBC) Count 2.38 mill/uL (4.70-6.10); White Blood Cell (WBC) Count 2.8 thou/uL (4.8-10.8)
[2020-05-19] MEDS: Nystatin 500,000 UNITS/5 ML UDCUP SSW SCH ×4 (08:38→20:26)
[2020-05-19] MEDS: Enoxaparin Sodium 30 MG/0.3 ML SYRINGE SC SCH (08:38)
[2020-05-19] MEDS: Ketotifen Fumarate 0.025% Ophth Soln 5 ml Bottle EA EYE SCH ×2 (08:39→21:14)
[2020-05-19] MEDS: Metoprolol Tartrate 100 MG TAB PO SCH (08:39)
[2020-05-19] MEDS: Famotidine/PF 20 mg/2ml Vial SLOW IVP SCH (08:39)
[2020-05-19] MEDS: Amlodipine 10 MG TAB PO SCH (08:39)
[2020-05-19] MEDS: Clopidogrel Bisulfate 75 MG TAB PO SCH (08:39)
[2020-05-19] MEDS: Acetaminophen/Codeine 30-300mg Tablet PO PRN (08:45)
[2020-05-19] MEDS: Dextrose 5 % And 0.9 % NaCl 1,000 ML IV SCH (08:58)
[2020-05-19] MEDS ORDERED: OLOPATADINE HCL EA EYE SCH (09:00)
--- NOTE | 2020-05-19 11:59 | PDOC.HOSPP ---
- Subjective Encounter Date: 05/19/20 Encounter Time: 11:00 Subjective: just finished his radiation dose this morning all his feeding are through peg, takes glucerna 4-5 cans/day he cant even swallow his saliva and has to spit it out ambulates when he is not falling at home? per patient, lives with his - Objective Vital Signs & Weight: Vital Signs (12 hours) Temp Pulse Resp BP Pulse Ox 05/19/20 08:39 82 05/19/20 08:00 98.6 F 98 18 182/74 H 98 05/19/20 04:00 98.0 F 82 20 180/75 H 96 Weight Weight 160 lb I&O: 05/18/20 05/19/20 05/20/20 06:59 06:59 06:59 Intake Total 60 Balance 60 Result Diagrams: 05/19/20 03:25 05/19/20 03:25 Additional Labs: Accuchecks 05/19/20 05/19/20 05/18/20 11:41 05:23 22:00 POC Glucose 164 H 160 H 134 H Hospitalist ROS - Medication Medications: Active Medications Generic Name Dose Route Start Last Admin Trade Name Freq PRN Reason Stop Dose Admin Acetaminophen/Codeine Phosphate 1 tab 05/19/20 07:05 05/19/20 08:45 Acetaminophen/Codeine 30-300mg Tablet PO 1 tab Q6H PRN Administration Pain Amlodipine Besylate 10 mg 05/19/20 09:00 05/19/20 08:39 Amlodipine 10 Mg Tab PO 10 mg DAILY MAR Administration Clopidogrel Bisulfate 75 mg 05/19/20 09:00 05/19/20 08:39 Clopidogrel Bisulfate 75 Mg Tab PO 75 mg DAILY MAR Administration Enoxaparin Sodium 30 mg 05/19/20 09:00 05/19/20 08:38 Enoxaparin Sodium 30 Mg/0.3 Ml Syringe SC 30 mg 0900 MAR Administration Dextrose/Sodium Chloride 1,000 mls @ 75 mls/hr 05/18/20 19:30 05/19/20 08:58 D5 0.9% Ns IV Not Given .[id number] MAR Ketotifen Fumarate 1 drop 05/19/20 09:00 05/19/20 08:39 Ketotifen Fumarate 0.025% Ophth Soln 5 Ml Bottle EA EYE 1 drop BID MAR Administration Metoprolol Tartrate 100 mg 05/19/20 09:00 05/19/20 08:39 Metoprolol Tartrate 100 Mg Tab PO 100 mg QAM MAR Administration Nystatin 500,000 units 05/18/20 21:00 05/19/20 08:38 Nystatin 500,000 Units/5 Ml Udcup SSW 500,000 units QID MAR Administration - Exam General Appearance: awake alert Eye: PERRL, anicteric sclera ENT: normocephalic atraumatic, dry oral mucosa Neck: no JVD Heart: RRR, no murmur Respiratory: no wheezes, no rales, rhonchi Gastrointestinal: soft, non-tender, non-distended, normal bowel sounds Gastrointestinal - other findings: peg+ Extremities: no cyanosis, no edema Neurological: cranial nerve grossly intact, no focal deficits Psychiatric: A&O x 3 Hosp A/P (1) Intractable nausea and vomiting Code(s): R11.2 - NAUSEA WITH VOMITING, UNSPECIFIED Status: Acute (2) Moderate dehydration Code(s): E86.0 - DEHYDRATION Status: Acute (3) Hypomagnesemia Code(s): E83.42 - HYPOMAGNESEMIA Status: Acute (4) Squamous cell carcinoma of head and neck Code(s): C76.0 - MALIGNANT NEOPLASM OF HEAD, FACE AND NECK Status: Chronic (5) Afib Code(s): I48.91 - UNSPECIFIED ATRIAL FIBRILLATION Status: Chronic Qualifiers: Atrial fibrillation type: paroxysmal Qualified Code(s): I48.0 - Paroxysmal atrial fibrillation (6) Dyslipidemia Code(s): E78.5 - HYPERLIPIDEMIA, UNSPECIFIED Status: Chronic (7) Hypokalemia Code(s): E87.6 - HYPOKALEMIA Status: Acute (8) DM2 (diabetes mellitus, type 2) Status: Chronic Qualifiers: Diabetes mellitus care home insulin use: without oracle soa consultant use Diabetes mellitus complication status: with kidney complications Diabetes mellitus complication detail: with nephropathy Qualified Code(s): E11.21 - Type 2 diabetes mellitus with diabetic nephropathy (9) HTN (hypertension) Code(s): I10 - ESSENTIAL (PRIMARY) HYPERTENSION Status: Chronic Qualifiers: Hypertension type: essential hypertension Qualified Code(s): I10 - Essential (primary) hypertension - Plan continue iv hydration till evening, start peg feeding glucerna 1 can qid to alternate with free water 200ml qid. electrolytes are slowly getting corrected add scopalamine patch if he tolerates due to dysphagia and inability to clear oral secretions PT eval continue home meds via peg, lopressor, plavix, norvasc, crestor, flomax hemostable change status to inpatient, as he requires another day to correct all electrolytes in addition to being deconditioned with cancer and radiation therapy.
[2020-05-19] MEDS ORDERED: traMADol HCl 50 MG TAB PO PRN (12:02)
[2020-05-19] MEDS: Scopolamine 1.5 mg/72 hour Patch TD SCH (12:35)
[2020-05-19] MEDS: Morphine 2 MG/ML VIAL SLOW IVP PRN (12:36)
--- NOTE | 2020-05-19 18:32 | CON ---
DATE OF CONSULTATION: REASON FOR CONSULT: Head and neck cancer. HISTORY OF PRESENT ILLNESS: Mr. Antonio is a 74-year-old gentleman who was diagnosed with head and neck squamous cell carcinoma. He is undergoing treatment with radiation and weekly cisplatin. He completes radiation on Sunday. He has been struggling quite a bit with hydration and nutrition. In fact, his last cisplatin was held secondary to increased weakness. He has been receiving hydration 3 times a week in our office and came in yesterday morning. He received a liter of fluid after radiation. Chemistry showed a potassium of 0.9. He was to come back today for replacement. However, his states he felt like he was "dying" and so she brought him to the emergency room. He does have a PEG tube that he recently gotten and was getting tube feeds up to 5 times daily until last week when he started having nausea with feedings. He has significant dysphagia secondary to radiation. He is receiving IV fluids on admission and pain medication. He states he is feeling better. PAST MEDICAL HISTORY: 1. 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 2. History of prostate cancer. 3. Diabetes mellitus 2. 4. Hypertension. 5. Hyperlipidemia. 6. Atrial fibrillation. PAST SURGICAL HISTORY: 1. A neck biopsy. 2. Watchman procedure. 3. Back surgery. ALLERGIES: TO HYDROCODONE AND LORATADINE. HOME MEDICATIONS: 1. Amlodipine. 2. Aspirin. 3. Clopidogrel. 4. Compazine. 5. Metformin. 6. Metoprolol. 7. Zofran. 8. Rosuvastatin. 9. Flomax. FAMILY HISTORY: Mother had throat cancer. SOCIAL HISTORY: . Has 3 children. Lives with his spouse. Former smoker. Former drinker. No illicit drug use. REVIEW OF SYSTEMS: A 12-point review of systems is negative except for noted in HPI. PHYSICAL EXAMINATION: VITAL SIGNS: Temperature is 98.2, pulse is 78, respiratory rate 20, blood pressure is 145/67, he is 99% on room air. GENERAL: This is a well-developed, well-nourished male, in no acute distress. HEENT: Normocephalic, atraumatic. Pupils are equal and reactive to light. NECK: He has a large neck dissection scar in his right neck with skin changes from radiation. LUNGS: Clear. CV: Regular rate and rhythm. ABDOMEN: Soft with a PEG tube in place. EXTREMITIES: No clubbing or cyanosis. NEUROLOGIC: Nonfocal. PERTINENT LABORATORY DATA AND X-RAYS: Current WBCs 2.8, hemoglobin 8.1, hematocrit 22.7, platelet count 216,000. He has 52% neutrophils, 28% bands, 4% lymphocytes, 16% monos. Sodium 133, potassium 3.3, chloride 194, CO2 is 30, BUN 17, creatinine 1.08, lactic acid 0.9, calcium 7.8, magnesium 1.1, bilirubin 0.5, AST is 17, ALT is 16, alkaline phosphatase is 46. Creatine kinase is 25. Serum total protein 6.2, albumin 3.4, globulin 2.8, lipase 12. ASSESSMENT: 1. Head and neck squamous cell carcinoma, on radiation. 2. Dysphagia secondary to treatment now with percutaneous endoscopic gastrostomy tube. DISCUSSION: The patient completes radiation on Sunday. He did not receive his 6 cycle of cisplatin. His last dose of chemo was on May 12. His dysphagia and increase in saliva are expected with treatment and will improve over the next several weeks. More concerning is his inability to take more than 4 to 5 cans of nutrition daily. We will have the dietitian discuss this with the family and educate on proper administration and continue the Zofran. I expect his white count to improve over the next several days. He can be discharged once his electrolytes have improved and he can follow up in clinic with Dr. Davis. Thank you for the consult. Job ID: [id number] [facility], [place]
[2020-05-19] MEDS: Metoprolol Tartrate 50 MG TAB PO SCH (20:27)
[2020-05-19] MEDS: Rosuvastatin 20 MG TAB PO SCH (20:27)
[2020-05-19] MEDS: Tamsulosin HCl 0.4 MG CAP PO SCH (20:27)
[2020-05-19] MEDS ORDERED: Non-Formulary Item 1 EACH (Rosuvastatin Calcium [Crestor] 40 MG Tablet) PO SCH (21:00)
[2020-05-20] MEDS: Acetaminophen/Codeine 30-300mg Tablet PO PRN ×2 (00:02→08:26)
[2020-05-20] MEDS: Ondansetron PF 4 MG/2 ML Vial IVP PRN ×2 (01:24→15:02)
[2020-05-20] MEDS: Dextrose 5 % And 0.9 % NaCl 1,000 ML IV SCH (01:24)
[2020-05-20 07:07] LABS: Anion Gap 13 mmol/L (10-20); BUN (Urea Nitrogen) 13 mg/dL (8.4-25.7); Calc. Creatinine Clearance 69 mL/min (70-130); Calcium 7.5 mg/dL (7.8-10.44); Carbon Dioxide 26 mmol/L (23-31); Chloride 95 mmol/L (98-107); Estimated GFR-MDRD 73; Glucose 165 mg/dL (83-110); Sodium 131 mmol/L (136-145)
[2020-05-20] MEDS: Metoprolol Tartrate 100 MG TAB PO SCH (08:26)
[2020-05-20] MEDS: Amlodipine 10 MG TAB PO SCH (08:26)
[2020-05-20] MEDS: Clopidogrel Bisulfate 75 MG TAB PO SCH (08:26)
[2020-05-20] MEDS: Pantoprazole 40 MG GRANULES PACKET PER TUBE SCH (08:26)
[2020-05-20] MEDS: Metoclopramide 10 MG/10 ML UDCUP PO SCH ×4 (08:27→20:26)
[2020-05-20] MEDS: Ketotifen Fumarate 0.025% Ophth Soln 5 ml Bottle EA EYE SCH ×2 (08:28→20:29)
[2020-05-20] MEDS: Enoxaparin Sodium 30 MG/0.3 ML SYRINGE SC SCH (08:28)
[2020-05-20] MEDS: Nystatin 500,000 UNITS/5 ML UDCUP SSW SCH ×4 (08:28→20:26)
[2020-05-20 09:02] LABS: Mean Corpuscular HGB CONC 35.3 g/dL (32.0-36.0); Mean Corpuscular Hemoglobin 34.1 pg (27.0-31.0); Mean Corpuscular Volume 96.8 fL (78.0-98.0); Mean Platelet Volume 6.8 fL (7.4-10.4); Platelet Count 217 thou/uL (130-400); RBC Distribution Width 12.4 % (11.5-14.5); Red Blood Cell (RBC) Count 2.34 mill/uL (4.70-6.10); White Blood Cell (WBC) Count 2.8 thou/uL (4.8-10.8)
[2020-05-20 10:00] LABS: Band 28 % (5-11); Lymphocytes 13 % (21-51); MDiff Complete? YES; Monocytes 21 % (0-10); Neutrophil 38 % (42-75); RBC Morphology Normal
--- NOTE | 2020-05-20 12:37 | PDOC.HOSPP ---
- Subjective Encounter Date: 05/20/20 Encounter Time: 11:00 Subjective: awake, no complaints now had nausea yest, none now no abd pain, is tolerating tube feeds no cough - Objective Vital Signs & Weight: Vital Signs (12 hours) Temp Pulse Resp BP Pulse Ox 05/20/20 08:26 92 05/20/20 08:00 98.4 F 85 16 148/68 H 95 05/20/20 03:47 99.4 F Weight Admit Weight 160 lb Weight 160 lb I&O: 05/19/20 05/20/20 05/21/20 06:59 06:59 06:59 Intake Total 60 880 440 Output Total 100 Balance 60 780 440 Result Diagrams: 05/20/20 06:32 05/20/20 06:32 Additional Labs: Accuchecks 05/20/20 05/20/20 05/19/20 11:55 05:27 20:51 POC Glucose 148 H 156 H 159 H 05/19/20 16:19 POC Glucose 169 H Hospitalist ROS - Medication Medications: Active Medications Generic Name Dose Route Start Last Admin Trade Name Freq PRN Reason Stop Dose Admin Acetaminophen/Codeine Phosphate 1 tab 05/19/20 07:05 05/20/20 08:26 Acetaminophen/Codeine 30-300mg Tablet PO 1 tab Q6H PRN Administration Severe Pain (7-10) Amlodipine Besylate 10 mg 05/19/20 09:00 05/20/20 08:26 Amlodipine 10 Mg Tab PO 10 mg DAILY MAR Administration Clopidogrel Bisulfate 75 mg 05/19/20 09:00 05/20/20 08:26 Clopidogrel Bisulfate 75 Mg Tab PO 75 mg DAILY MAR Administration Enoxaparin Sodium 30 mg 05/19/20 09:00 05/20/20 08:28 Enoxaparin Sodium 30 Mg/0.3 Ml Syringe SC 30 mg 0900 MAR Administration Dextrose/Water 1,000 mls @ 0 mls/hr 05/18/20 19:27 05/19/20 12:35 D5w IV 1,000 mls .Q0M PRN Administration Hypoglycemia As Directed Ketotifen Fumarate 1 drop 05/19/20 09:00 05/20/20 08:28 Ketotifen Fumarate 0.025% Ophth Soln 5 Ml Bottle EA EYE 1 drop BID MAR Administration Metoclopramide HCl 5 mg 05/20/20 07:30 05/20/20 12:27 Metoclopramide 10 Mg/10 Ml Udcup PO 5 mg ACHS MAR Administration Metoprolol Tartrate 50 mg 05/19/20 21:00 05/19/20 20:27 Metoprolol Tartrate 50 Mg Tab PO 50 mg HS MRA Administration Metoprolol Tartrate 100 mg 05/19/20 09:00 05/20/20 08:26 Metoprolol Tartrate 100 Mg Tab PO 100 mg QAM MAR Administration Morphine Sulfate 2 mg 05/19/20 12:06 05/19/20 12:36 Morphine 2 Mg/Ml Vial SLOW IVP 2 mg Q4H PRN Administration Severe Pain (7-10) Nystatin 500,000 units 05/18/20 21:00 05/20/20 12:27 Nystatin 500,000 Units/5 Ml Udcup SSW 500,000 units QID MAR Administration Ondansetron HCl 4 mg 05/18/20 19:22 05/20/20 01:24 Ondansetron Pf 4 Mg/2 Ml Vial IVP 4 mg Q6H PRN Administration Nausea/Vomiting Pantoprazole Sodium 40 mg 05/20/20 09:00 05/20/20 08:26 Pantoprazole 40 Mg Granules Packet PER TUBE 40 mg DAILY MAR Administration Rosuvastatin Calcium 40 mg 05/19/20 21:00 05/19/20 20:27 Rosuvastatin 20 Mg Tab PO 40 mg HS MAR Administration Scopolamine 1.5 mg 05/19/20 12:00 05/19/20 12:35 Scopolamine 1.5 Mg/72 Hour Patch TD 1.5 mg Q3D MAR Administration Tamsulosin HCl 0.8 mg 05/19/20 21:00 05/19/20 20:27 Tamsulosin Hcl 0.4 Mg Cap PO 0.8 mg HS MAR Administration - Exam General Appearance: awake alert Eye: PERRL, anicteric sclera ENT: no oropharyngeal lesions, dry oral mucosa Neck: supple, no JVD Heart: RRR, no murmur Respiratory: no wheezes, no rales Gastrointestinal: soft, non-tender, non-distended, normal bowel sounds Gastrointestinal - other findings: peg+ Extremities: no cyanosis, no edema Neurological: cranial nerve grossly intact, no focal deficits Psychiatric: A&O x 3 Hosp A/P (1) Intractable nausea and vomiting Code(s): R11.2 - NAUSEA WITH VOMITING, UNSPECIFIED Status: Resolved (2) Moderate dehydration Code(s): E86.0 - DEHYDRATION Status: Acute (3) Hypomagnesemia Code(s): E83.42 - HYPOMAGNESEMIA Status: Resolved (4) Squamous cell carcinoma of head and neck Code(s): C76.0 - MALIGNANT NEOPLASM OF HEAD, FACE AND NECK Status: Chronic (5) Afib Code(s): I48.91 - UNSPECIFIED ATRIAL FIBRILLATION Status: Chronic Qualifiers: Atrial fibrillation type: paroxysmal Qualified Code(s): I48.0 - Paroxysmal atrial fibrillation (6) Dyslipidemia Code(s): E78.5 - HYPERLIPIDEMIA, UNSPECIFIED Status: Chronic (7) Hypokalemia Code(s): E87.6 - HYPOKALEMIA Status: Acute (8) DM2 (diabetes mellitus, type 2) Status: Chronic Qualifiers: Diabetes mellitus longterm insulin use: without longterm use Diabetes mellitus complication status: with kidney complications Diabetes mellitus complication detail: with nephropathy Qualified Code(s): E11.21 - Type 2 diabetes mellitus with diabetic nephropathy (9) HTN (hypertension) Code(s): I10 - ESSENTIAL (PRIMARY) HYPERTENSION Status: Chronic Qualifiers: Hypertension type: essential hypertension Qualified Code(s): I10 - Essential (primary) hypertension - Plan is tolerating peg feeding glucerna 1 can qid to alternate with free water 200ml qid. electrolytes are slowly getting corrected fever of 99-100, prelim blood cs are -ve, await urine cs, not on any antibiotics now PT to mobilize as tolerated, is working well with them continue home meds via peg, lopressor, plavix, norvasc, crestor, flomax, scopalamine tts hemostable he will have his last dose of radiation tomorrow dc plan with HH and PT likely tomorrow if no fever.
[2020-05-20] MEDS ORDERED: Potassium Chloride 20 MEQ TAB PO SCH (12:45)
[2020-05-20] MEDS: Acetaminophen 650 MG Suppository PR PRN (15:03)
--- NOTE | 2020-05-20 15:45 | PQF ---
CLINICAL DOCUMENTATION CLARIFICATION FORM Dear Dr.V. Trent Date: 05/20/2020 1411 Please exercise your independent, professional judgment in responding to the clarification form. Clinical indicators are provided on the bottom of this form for your review. Please check appropriate box(es): [ x ] Protein Calorie Malnutrition: [ ] Mild [x ] Moderate [ ] Severe [ ] Other Malnutrition (please specify) [ ] Underweight without malnutrition [ ] Cachexia [ ] Other diagnosis [ ] Unable to determine In addition, please specify: Present on Admission (POA): [ x] Yes [ ] No [ ] Unable to determine For continuity of documentation, please document condition throughout progress notes and discharge summary. Thank You. To be completed by CDI/Coding staff for physician review: CLINICAL INDICATORS - SIGNS / SYMPTOMS / LABS / RESULTS AND LOCATION IN MR Nutrition diagnosis Malnutrition related to oncology as evidenced by 11.1% weight loss in 1-2 months, moderate to severe muscle wasting present suggestive of severe malnutrition in the context of chronic illness (RD/ 05/19) Deconditioned with cancer and radiation therapy( Twan / PN ) 05/18 RISK FACTORS / RESULTS AND LOCATION IN MR Intractable nausea /vomiting, dehydration, hyponatremia,( H&P/ Mohamed-Luis Armando) 05/19 TREATMENT / RESULTS AND LOCATION IN MR Dietary consult (05/19) Recommended increasing Glucerna 1.5 TF Moderate Malnutrition (in acute illness) Energy Intake: <75% of estimated energy requirement for > 7 days Weight Loss: 1-2%/1 week; 5%/ 1 month; 7.5%/3 months Other: mild body fat loss; mild muscle mass loss; mild fluid accumulation; Severe Malnutrition (in acute illness) Energy Intake: = 50% of estimated energy requirement for = 5 days Weight Loss: >2%/1 week; >5%/1 month; >7.5%/3 months Other: moderate body fat loss; moderate muscle mass loss; moderate- severe fluid accumulation; measurably reduced iron miner strength Moderate Malnutrition (in chronic illness) Energy Intake: <75% of estimated energy requirement for =1 month Weight Loss: 5%/1 month; 7.5%/3 months; 10%/6 months; 20%/1 year Other: mild body fat loss; mild muscle mass loss; mild fluid accumulation Severe Malnutrition (in chronic illness) Energy Intake: =75% of estimated energy requirement for =1 month Weight Loss: >5%/1 month; >7.5%/3 months; >10%/6 months; >20%/1 year Other: severe body fat loss; severe muscle mass loss; severe fluid accumulation; measurably reduced iron miner strength Thank you! CDS Signature: Jamaica Coyle RN Phone #: [phone] Date: 05/20/2020 This is a permanent part of the Medical Record [facility]
--- NOTE | 2020-05-20 17:34 | CT ---
CT CHEST WITHOUT CONTRAST: 05/20/20 INDICATIONS: Assess for lung infiltrate. FINDINGS: The lung watt are well aerated and clears. There is no evidence of lung infiltrate. There is no julieta dence of effusion. No pulmonary mass or nodule. The mediastinum is unremarkable. No adenopathy. Atherosclerotic calcification in the thoracic aorta. No aneurysm. Images through the upper abdomen show calcified gallstones. Degenerative spine changes. IMPRESSION: 1. No evidence of lung infiltrate or other acute lung process. 2. Cholelithiasis is incidentally noted. POS: [facility]
--- NOTE | 2020-05-20 18:33 | RAD ---
LEFT SHOULDER: 05/20/20 Three views. HISTORY: Fall with injury. Mild degenerative change. Radiopaque anchor consistent with prior rotator cuff repair. No fracture or dislocation. AC joint normally aligned. IMPRESSION: No acute abnormality. POS: [facility]
--- NOTE | 2020-05-20 18:34 | RAD ---
LEFT HUMERUS: 05/20/20 Two views. HISTORY: Fall with injury. No evidence of fracture. Radiopaque anchor in the humeral head from prior rotator cuff procedure. IMPRESSION: No acute abnormality. POS: AGW
[2020-05-20] MEDS: Cefepime 1 GM in Sodium Chloride 0.9% 100 ML IVPB SCH (18:47)
[2020-05-20] MEDS: Rosuvastatin 20 MG TAB PO SCH (20:27)
[2020-05-20] MEDS: Tamsulosin HCl 0.4 MG CAP PO SCH (20:27)
[2020-05-20] MEDS: Clindamycin/D5W 300 MG/50 ML BAG IVPB SCH (20:27)
[2020-05-20] MEDS: Metoprolol Tartrate 50 MG TAB PO SCH (20:27)
[2020-05-20] MEDS: Vancomycin 1.5 GRAM/300 ML BAG 1.5 GM in Premix Bag 1 BAG IVPB SCH (21:45)
[2020-05-21] MEDS: Clindamycin/D5W 300 MG/50 ML BAG IVPB SCH ×3 (04:32→20:12)
[2020-05-21] MEDS: Cefepime 1 GM in Sodium Chloride 0.9% 100 ML IVPB SCH ×2 (05:56→18:12)
[2020-05-21 08:33] LABS: Hemoglobin 7.9 g/dL (14.0-18.0); Mean Corpuscular HGB CONC 35.4 g/dL (32.0-36.0); Mean Corpuscular Hemoglobin 34.4 pg (27.0-31.0); Mean Corpuscular Volume 97.2 fL (78.0-98.0); Mean Platelet Volume 6.5 fL (7.4-10.4); Platelet Count 199 thou/uL (130-400); RBC Distribution Width 12.6 % (11.5-14.5); White Blood Cell (WBC) Count 2.2 thou/uL (4.8-10.8)
[2020-05-21] MEDS: Ketotifen Fumarate 0.025% Ophth Soln 5 ml Bottle EA EYE SCH ×2 (08:34→20:09)
[2020-05-21] MEDS: Nystatin 500,000 UNITS/5 ML UDCUP SSW SCH ×4 (08:35→20:08)
[2020-05-21] MEDS: Metoclopramide 10 MG/10 ML UDCUP PO SCH ×4 (08:35→20:08)
[2020-05-21] MEDS: Clopidogrel Bisulfate 75 MG TAB PO SCH (08:35)
[2020-05-21] MEDS: Metoprolol Tartrate 100 MG TAB PO SCH (08:35)
[2020-05-21] MEDS: Amlodipine 10 MG TAB PO SCH (08:35)
[2020-05-21] MEDS: Pantoprazole 40 MG GRANULES PACKET PER TUBE SCH (08:36)
[2020-05-21 08:40] LABS: Anion Gap 15 mmol/L (10-20); BUN (Urea Nitrogen) 14 mg/dL (8.4-25.7); Calc. Creatinine Clearance 67 mL/min (70-130); Calcium 7.6 mg/dL (7.8-10.44); Carbon Dioxide 25 mmol/L (23-31); Chloride 97 mmol/L (98-107); Estimated GFR-MDRD 72; Glucose 139 mg/dL (83-110); Potassium 3.4 mmol/L (3.5-5.1); Sodium 134 mmol/L (136-145)
[2020-05-21 10:09] LABS: Band 34 % (5-11); Lymphocytes 4 % (21-51); MDiff Complete? YES; Monocytes 24 % (0-10); Myelocyte 2 % (0-0); Neutrophil 36 % (42-75); Platelet Morphology Comment Appears Adequate; Polychromasia SLIGHT = 2-3 cells (100X) (0-2/hpf)
[2020-05-21] MEDS: Enoxaparin Sodium 30 MG/0.3 ML SYRINGE SC SCH (12:06)
--- NOTE | 2020-05-21 13:03 | PDOC.HOSPP ---
- Subjective Encounter Date: 05/21/20 Encounter Time: 12:00 Subjective: finished his full course of radiation today no sob or cough - Objective Vital Signs & Weight: Vital Signs (12 hours) Temp Pulse Resp BP Pulse Ox 05/21/20 08:35 92 05/21/20 07:40 98.9 F 92 18 110/56 L 96 05/21/20 04:00 99.3 F Weight Admit Weight 160 lb Weight 160 lb I&O: 05/20/20 05/21/20 05/22/20 06:59 06:59 06:59 Intake Total 880 2200 440 Output Total 100 Balance 780 2200 440 Result Diagrams: 05/21/20 08:12 05/21/20 08:12 Additional Labs: Accuchecks 05/21/20 05/20/20 05/20/20 10:53 20:45 16:06 POC Glucose 152 H 149 H 150 H Hospitalist ROS - Medication Medications: Active Medications Generic Name Dose Route Start Last Admin Trade Name Freq PRN Reason Stop Dose Admin Acetaminophen 650 mg 05/18/20 19:22 05/20/20 15:03 Acetaminophen [address] 650 mg Q4H PRN Administration Headache/Fever/Mild Pain (1-3) Acetaminophen/Codeine Phosphate 1 tab 05/19/20 07:05 05/20/20 08:26 Acetaminophen/Codeine 30-300mg Tablet PO 1 tab Q6H PRN Administration Severe Pain (7-10) Amlodipine Besylate 10 mg 05/19/20 09:00 05/21/20 08:35 Amlodipine 10 Mg Tab PO 10 mg DAILY MAR Administration Clindamycin Phosphate/Dextrose 300 mg 05/21/20 12:00 05/21/20 12:08 Clindamycin/D5w 300 Mg/50 Ml Bag IVPB 300 mg 0400,1200,2000 MAR Administration Clopidogrel Bisulfate 75 mg 05/19/20 09:00 05/21/20 08:35 Clopidogrel Bisulfate 75 Mg Tab PO 75 mg DAILY MAR Administration Enoxaparin Sodium 30 mg 05/19/20 09:00 05/21/20 12:06 Enoxaparin Sodium 30 Mg/0.3 Ml Syringe SC 30 mg 0900 MAR Administration Dextrose/Water 1,000 mls @ 0 mls/hr 05/18/20 19:27 05/19/20 12:35 D5w IV 1,000 mls .Q0M PRN Administration Hypoglycemia As Directed Cefepime HCl 1 gm/ Sodium 100 mls @ 200 mls/hr 05/20/20 18:00 05/21/20 05:56 Chloride IVPB 100 mls 0600,1800 MAR Administration Vancomycin HCl 1.5 gm/ Device 300 mls @ 166.67 mls/hr 05/20/20 21:00 05/20/20 21:45 IVPB 300 mls 2100 MAR Administration Ketotifen Fumarate 1 drop 05/19/20 09:00 05/21/20 08:34 Ketotifen Fumarate 0.025% Ophth Soln 5 Ml Bottle EA EYE 1 drop BID MAR Administration Metoclopramide HCl 5 mg 05/20/20 07:30 05/21/20 12:06 Metoclopramide 10 Mg/10 Ml Udcup PO 5 mg ACHS MAR Administration Metoprolol Tartrate 50 mg 05/19/20 21:00 05/20/20 20:27 Metoprolol Tartrate 50 Mg Tab PO 50 mg HS MAR Administration Metoprolol Tartrate 100 mg 05/19/20 09:00 05/21/20 08:35 Metoprolol Tartrate 100 Mg Tab PO 100 mg QAM MAR Administration Morphine Sulfate 2 mg 05/19/20 12:06 05/19/20 12:36 Morphine 2 Mg/Ml Vial SLOW IVP 2 mg Q4H PRN Administration Severe Pain (7-10) Nystatin 500,000 units 05/18/20 21:00 05/21/20 12:07 Nystatin 500,000 Units/5 Ml Udcup SSW 500,000 units QID MAR Administration Ondansetron HCl 4 mg 05/18/20 19:22 05/20/20 15:02 Ondansetron Pf 4 Mg/2 Ml Vial IVP 4 mg Q6H PRN Administration Nausea/Vomiting Pantoprazole Sodium 40 mg 05/20/20 09:00 05/21/20 08:36 Pantoprazole 40 Mg Granules Packet PER TUBE 40 mg DAILY MAR Administration Rosuvastatin Calcium 40 mg 05/19/20 21:00 05/20/20 20:27 Rosuvastatin 20 Mg Tab PO 40 mg HS MAR Administration Scopolamine 1.5 mg 05/19/20 12:00 05/19/20 12:35 Scopolamine 1.5 Mg/72 Hour Patch TD 1.5 mg Q3D MAR Administration Sodium Chloride 10 ml 05/20/20 21:00 05/21/20 08:36 Flush - Normal Saline 10 Ml Syringe IVF 10 ml Q12HR MAR Administration Tamsulosin HCl 0.8 mg 05/19/20 21:00 05/20/20 20:27 Tamsulosin Hcl 0.4 Mg Cap PO 0.8 mg HS MAR Administration - Exam General Appearance: awake alert Eye: PERRL, anicteric sclera ENT: no oropharyngeal lesions, dry oral mucosa Neck: no JVD Heart: RRR, no murmur Respiratory: no wheezes, no rales Gastrointestinal: soft, non-tender, non-distended, normal bowel sounds Extremities: no cyanosis, no edema Neurological: cranial nerve grossly intact, no focal deficits Psychiatric: A&O x 3 Hosp A/P (1) Intractable nausea and vomiting Code(s): R11.2 - NAUSEA WITH VOMITING, UNSPECIFIED Status: Resolved (2) Moderate dehydration Code(s): E86.0 - DEHYDRATION Status: Acute (3) Hypomagnesemia Code(s): E83.42 - HYPOMAGNESEMIA Status: Resolved (4) Squamous cell carcinoma of head and neck Code(s): C76.0 - MALIGNANT NEOPLASM OF HEAD, FACE AND NECK Status: Chronic (5) Afib Code(s): I48.91 - UNSPECIFIED ATRIAL FIBRILLATION Status: Chronic Qualifiers: Atrial fibrillation type: paroxysmal Qualified Code(s): I48.0 - Paroxysmal atrial fibrillation (6) Dyslipidemia Code(s): E78.5 - HYPERLIPIDEMIA, UNSPECIFIED Status: Chronic (7) Hypokalemia Code(s): E87.6 - HYPOKALEMIA Status: Acute (8) DM2 (diabetes mellitus, type 2) Status: Chronic Qualifiers: Diabetes mellitus rn long term care insulin use: without rn long term care use Diabetes mellitus complication status: with kidney complications Diabetes mellitus complication detail: with nephropathy Qualified Code(s): E11.21 - Type 2 diabetes mellitus with diabetic nephropathy (9) HTN (hypertension) Code(s): I10 - ESSENTIAL (PRIMARY) HYPERTENSION Status: Chronic Qualifiers: Hypertension type: essential hypertension Qualified Code(s): I10 - Essential (primary) hypertension - Plan peg feeding glucerna 1 can qid to alternate with free water 200ml qid as tolerated. electrolytes are slowly getting corrected fever of 99-100, prelim blood cs are -ve, await urine cs, on cefepime, clinda a nd vanc, unclear source PT to mobilize as tolerated, is working well with them continue home meds via peg, lopressor, plavix, norvasc, crestor, flomax, scopalamine tts and reglan hemostable he had his last dose of radiation today dc plan with HH and PT when fever subsides CT chest shows no evidence of pna, will get usg venous doppler to r/o dvt
[2020-05-21] MEDS: Ondansetron PF 4 MG/2 ML Vial IVP PRN ×2 (13:17→18:12)
--- NOTE | 2020-05-21 16:34 | ULT ---
DOPPLER VENOUS ULTRASOUND BOTH LOWER EXREMITIES: 05/21/20 INDICATION: History of radiation therapy for six months and immobility. TECHNIQUE: Rodriges scale, color Doppler, and vascular duplex with spectral analysis was performed of the deep venou s structures of both lower extremities. The common femoral vein, superficial femoral vein, popliteal vein, posterior tibial vein, proximal greater saphenous, and proximal profunda veins were assessed bi laterally. FINDINGS: There is normal compression, flow and augmentation seen within the deep venous structures of both low er extremities. IMPRESSION: No evidence of DVT in both lower extremity. POS: G[facility]ATHRI
[2020-05-21] MEDS: Metoprolol Tartrate 50 MG TAB PO SCH (20:08)
[2020-05-21] MEDS: Rosuvastatin 20 MG TAB PO SCH (20:08)
[2020-05-21] MEDS: Tamsulosin HCl 0.4 MG CAP PO SCH (20:08)
[2020-05-21] MEDS: Acetaminophen 650 MG Suppository PR PRN (21:26)
[2020-05-21] MEDS: Vancomycin 1.5 GRAM/300 ML BAG 1.5 GM in Premix Bag 1 BAG IVPB SCH (21:27)
[2020-05-22] MEDS: Clindamycin/D5W 300 MG/50 ML BAG IVPB SCH (04:05)
[2020-05-22 04:58] LABS: ALT (SGPT) 39 U/L (8-55); AST (SGOT) 30 U/L (5-34); Albumin 3.2 g/dL (3.4-4.8); Alkaline Phosphatase 71 U/L (40-110); Anion Gap 17 mmol/L (10-20); BUN (Urea Nitrogen) 15 mg/dL (8.4-25.7); Bilirubin, Total 0.5 mg/dL (0.2-1.2); Calc. Creatinine Clearance 67 mL/min (70-130); Calcium 7.3 mg/dL (7.8-10.44); Carbon Dioxide 23 mmol/L (23-31); Chloride 97 mmol/L (98-107); Estimated GFR-MDRD 71; Globulin 2.9 g/dL (2.4-3.5); Glucose 128 mg/dL (83-110); Potassium 3.2 mmol/L (3.5-5.1); Protein, Total 6.1 g/dL (5.8-8.1); Sodium 134 mmol/L (136-145)
[2020-05-22 05:04] LABS: Band 25 % (5-11); Hemoglobin 8.4 g/dL (14.0-18.0); Lymphocytes 10 % (21-51); MDiff Complete? YES; Mean Corpuscular HGB CONC 36.8 g/dL (32.0-36.0); Mean Corpuscular Hemoglobin 35.3 pg (27.0-31.0); Mean Corpuscular Volume 95.9 fL (78.0-98.0); Mean Platelet Volume 6.7 fL (7.4-10.4); Monocytes 29 % (0-10); Neutrophil 36 % (42-75); Platelet Count 180 thou/uL (130-400); RBC Distribution Width 12.4 % (11.5-14.5); Red Blood Cell (RBC) Count 2.37 mill/uL (4.70-6.10); White Blood Cell (WBC) Count 2.2 thou/uL (4.8-10.8)
[2020-05-22] MEDS: Cefepime 1 GM in Sodium Chloride 0.9% 100 ML IVPB SCH ×2 (05:19→17:38)
[2020-05-22] MEDS: Acetaminophen/Codeine 30-300mg Tablet PO PRN (05:29)
[2020-05-22] MEDS: Ondansetron PF 4 MG/2 ML Vial IVP PRN ×3 (05:35→19:53)
[2020-05-22] MEDS ORDERED: Loperamide HCl 2 MG CAP PER TUBE PRN (07:59)
[2020-05-22] MEDS ORDERED: Cepastat Lozenges 1 LOZ PO PRN (07:59)
[2020-05-22] MEDS ORDERED: Senokot S 8.6-50 MG TAB PER TUBE PRN (07:59)
[2020-05-22] MEDS ORDERED: Sodium Chloride 0.65% Nasal 44 ML BOT EA NARE PRN (07:59)
[2020-05-22] MEDS ORDERED: Metoclopramide HCl 10 MG/2 ML VIAL IVP PRN (07:59)
[2020-05-22] MEDS ORDERED: Bisacodyl 10 MG SUPP PR PRN (07:59)
[2020-05-22] MEDS: Nystatin 500,000 UNITS/5 ML UDCUP SSW SCH ×5 (09:10→21:20)
[2020-05-22] MEDS: Metoclopramide 10 MG/10 ML UDCUP PO SCH ×5 (09:10→21:19)
[2020-05-22] MEDS: Amlodipine 10 MG TAB PO SCH (09:11)
[2020-05-22] MEDS: Clopidogrel Bisulfate 75 MG TAB PO SCH (09:11)
[2020-05-22] MEDS: Pantoprazole 40 MG GRANULES PACKET PER TUBE SCH (09:11)
[2020-05-22] MEDS: Metoprolol Tartrate 100 MG TAB PO SCH (09:11)
[2020-05-22] MEDS: Ketotifen Fumarate 0.025% Ophth Soln 5 ml Bottle EA EYE SCH ×2 (09:12→21:19)
[2020-05-22 10:37] LABS: Bilirubin Negative (Negative); Blood, Urine Negative (Negative); Glucose, Urine (Dipstick) Negative (Negative); Ketone, Urine Negative (Negative); Leukocyte Negative (Negative); Nitrite Negative (Negative); Protein, Urine (Dipstick) Trace mg/dL (Neg-Trace); Specific Gravity, Urine 1.015 (1.005-1.030)
[2020-05-22 10:39] LABS: Clarity Clear (Clear)
[2020-05-22 10:53] LABS: Bacteria/HPF None Seen HPF (None Seen); RBC/HPF None Seen HPF (0-3); Squamous Epithelial 0-3 HPF (0-3); WBC/HPF 0-3 HPF (0-3)
[2020-05-22 10:54] LABS: Urine Culture Reflex No No
--- NOTE | 2020-05-22 11:09 | PDOC.HOSPP ---
- Subjective Encounter Date: 05/22/20 Encounter Time: 07:00 Subjective: Patient seen and examined bedside today, he had a fever last night around 930, overall patient is doing better, - Objective Vital Signs & Weight: Vital Signs (12 hours) Temp Pulse Resp BP Pulse Ox 05/22/20 09:11 90 05/22/20 08:39 98.5 F 90 16 138/70 96 05/22/20 04:00 98.9 F 05/21/20 23:30 98.7 F Weight Admit Weight 160 lb Weight 160 lb I&O: 05/21/20 05/22/20 05/23/20 06:59 06:59 06:59 Intake Total 2200 1220 Balance 2200 1220 Result Diagrams: 05/22/20 04:20 05/22/20 04:20 Additional Labs: Accuchecks 05/21/20 20:29 POC Glucose 158 H Radiology Reviewed by me: Yes Hospitalist ROS - Review of Systems Constitutional: reports: fever, weakness. denies: chills, sweats, malaise, other ENT: denies: ear pain, ear discharge, nose pain, nose discharge, nose congestion, mouth pain, mouth swelling, throat pain, throat swelling, other Respiratory: denies: cough, dry, shortness of breath, hemoptysis, SOB with excertion, pleuritic pain, sputum, wheezing, other Cardiovascular: denies: chest pain, palpitations, orthopnea, paroxysmal noc. dyspnea, edema, light headedness, other Gastrointestinal: denies: nausea, vomiting, abdominal pain, diarrhea, constipation, melena, hematochezia, other Genitourinary: denies: dysuria, frequency, incontinence, hematuria, retention, other Musculoskeletal: denies: neck pain, shoulder pain, arm pain, back pain, hand pain, leg pain, foot pain, other - Medication Medications: Active Medications Generic Name Dose Route Start Last Admin Trade Name Freq PRN Reason Stop Dose Admin Acetaminophen 650 mg 05/18/20 19:22 05/21/20 21:26 Acetaminophen 650 Mg Suppository VA 650 mg Q4H PRN Administration Headache/Fever/Mild Pain (1-3) Acetaminophen/Codeine Phosphate 1 tab 05/19/20 07:05 05/22/20 05:29 Acetaminophen/Codeine 30-300mg Tablet PO 1 tab Q6H PRN Administration Severe Pain (7-10) Amlodipine Besylate 10 mg 05/19/20 09:00 05/22/20 09:11 Amlodipine 10 Mg Tab PO 10 mg DAILY MAR Administration Clopidogrel Bisulfate 75 mg 05/19/20 09:00 05/22/20 09:11 Clopidogrel Bisulfate 75 Mg Tab PO 75 mg DAILY MAR Administration Enoxaparin Sodium 30 mg 05/19/20 09:00 05/21/20 12:06 Enoxaparin Sodium 30 Mg/0.3 Ml Syringe SC 30 mg 0900 MAR Administration Dextrose/Water 1,000 mls @ 0 mls/hr 05/18/20 19:27 05/19/20 12:35 D5w IV 1,000 mls .Q0M PRN Administration Hypoglycemia As Directed Cefepime HCl 1 gm/ Sodium 100 mls @ 200 mls/hr 05/20/20 18:00 05/22/20 05:19 Chloride IVPB 100 mls 0600,1800 MAR Administration Vancomycin HCl 1.5 gm/ Device 300 mls @ 166.67 mls/hr 05/20/20 21:00 05/21/20 21:27 IVPB 300 mls 2100 MAR Administration Ketotifen Fumarate 1 drop 05/19/20 09:00 05/22/20 09:12 Ketotifen Fumarate 0.025% Ophth Soln 5 Ml Bottle EA EYE 1 drop BID MAR Administration Metoclopramide HCl 5 mg 05/20/20 07:30 05/22/20 09:10 Metoclopramide 10 Mg/10 Ml Udcup PO 5 mg ACHS MAR Administration Metoprolol Tartrate 50 mg 05/19/20 21:00 05/21/20 20:08 Metoprolol Tartrate 50 Mg Tab PO 50 mg HS MAR Administration Metoprolol Tartrate 100 mg 05/19/20 09:00 05/22/20 09:11 Metoprolol Tartrate 100 Mg Tab PO 100 mg QAM MAR Administration Morphine Sulfate 2 mg 05/19/20 12:06 05/19/20 12:36 Morphine 2 Mg/Ml Vial SLOW IVP 2 mg Q4H PRN Administration Severe Pain (7-10) Nystatin 500,000 units 05/18/20 21:00 05/22/20 09:10 Nystatin 500,000 Units/5 Ml Udcup SSW 500,000 units QID MAR Administration Ondansetron HCl 4 mg 05/21/20 13:00 05/22/20 05:35 Ondansetron Pf 4 Mg/2 Ml Vial IVP 4 mg Q6H PRN Administration Nausea/Vomiting Pantoprazole Sodium 40 mg 05/20/20 09:00 05/22/20 09:11 Pantoprazole 40 Mg Granules Packet PER TUBE 40 mg DAILY MAR Administration Potassium Chloride 40 meq 05/22/20 08:00 05/22/20 09:11 Potassium Chloride 20 Meq Packet PER TUBE 05/22/20 12:00 40 meq NOW MAR Administration Rosuvastatin Calcium 40 mg 05/19/20 21:00 05/21/20 20:08 Rosuvastatin 20 Mg Tab PO 40 mg HS MAR Administration Scopolamine 1.5 mg 05/19/20 12:00 05/19/20 12:35 Scopolamine 1.5 Mg/72 Hour Patch TD 1.5 mg Q3D MAR Administration Sodium Chloride 10 ml 05/20/20 21:00 05/22/20 09:12 Flush - Normal Saline 10 Ml Syringe IVF 10 ml Q12HR MAR Administration Tamsulosin HCl 0.8 mg 05/19/20 21:00 05/21/20 20:08 Tamsulosin Hcl 0.4 Mg Cap PO 0.8 mg HS MAR Administration - Exam General Appearance: NAD, awake alert Eye: PERRL, anicteric sclera ENT: normocephalic atraumatic, no oropharyngeal lesions Neck: supple, symmetric, no JVD, no thyromegaly Heart: RRR, no murmur, no gallops, no rubs Respiratory: no wheezes, no rales, no ronchi Gastrointestinal: soft, non-tender, non-distended, normal bowel sounds Gastrointestinal - other findings: PEG tube in place Extremities: no edema Skin: normal turgor, no lesions Neurological: no focal deficits Musculoskeletal: normal tone, normal strength Psychiatric: normal affect, normal behavior Hosp A/P (1) Intractable nausea and vomiting Code(s): R11.2 - NAUSEA WITH VOMITING, UNSPECIFIED Status: Resolved (2) Moderate dehydration Code(s): E86.0 - DEHYDRATION Status: Acute (3) Squamous cell carcinoma of head and neck Code(s): C76.0 - MALIGNANT NEOPLASM OF HEAD, FACE AND NECK Status: Chronic (4) CKD (chronic kidney disease), stage III Code(s): N18.3 - CHRONIC KIDNEY DISEASE, STAGE 3 (MODERATE) * DO NOT USE * Status: Chronic (5) Chronic anticoagulation Code(s): Z79.01 - TRANSPORTATION MECHANIC (CURRENT) USE OF ANTICOAGULANTS Status: Chronic (6) DM2 (diabetes mellitus, type 2) Status: Chronic Qualifiers: Diabetes mellitus personnel placement specialist insulin use: without personnel placement specialist use Diabetes mellitus complication status: with kidney complications Diabetes mellitus complication detail: with nephropathy Qualified Code(s): E11.21 - Type 2 diabetes mellitus with diabetic nephropathy (7) HTN (hypertension) Code(s): I10 - ESSENTIAL (PRIMARY) HYPERTENSION Status: Chronic Qualifiers: Hypertension type: essential hypertension Qualified Code(s): I10 - Essent ial (primary) hypertension (8) Hypokalemia Code(s): E87.6 - HYPOKALEMIA Status: Acute (9) Afib Code(s): I48.91 - UNSPECIFIED ATRIAL FIBRILLATION Status: Chronic Qualifiers: Atrial fibrillation type: paroxysmal Qualified Code(s): I48.0 - Paroxysmal atrial fibrillation (10) Hypomagnesemia Code(s): E83.42 - HYPOMAGNESEMIA Status: Resolved - Plan old records reviewed/req, plan discussed w/ family, continue antibiotics I have discussed with the patient's and updated about plan of care His urine analysis is also normal, his ultrasound lower extremity is negative for DVT, all investigation so far not showing any source of infection, I have discontinued clindamycin today, will continue cefepime and vancomycin for now, Suspicious for infectious etiology for fever is less likely, most likely his fe charu related with a tumor Patient's prefer him to go home on Sunday I have reviewed his medication and continue provide symptomatic and supportive care We will monitor for any recurrent fever, so far culture is negative. We will replace potassium chloride today as well
[2020-05-22] MEDS: Enoxaparin Sodium 30 MG/0.3 ML SYRINGE SC SCH (11:57)
[2020-05-22] MEDS: Scopolamine 1.5 mg/72 hour Patch TD SCH (11:58)
[2020-05-22] MEDS: Acetaminophen 650 MG Suppository PR PRN ×2 (15:42→23:28)
[2020-05-22 21:16] LABS: Vancomycin, Trough Less than 1.1 ug/mL
[2020-05-22] MEDS: Vancomycin 1.5 GRAM/300 ML BAG 1.5 GM in Premix Bag 1 BAG IVPB SCH (21:20)
[2020-05-22] MEDS: Tamsulosin HCl 0.4 MG CAP PO SCH (21:20)
[2020-05-22] MEDS: Rosuvastatin 20 MG TAB PO SCH (21:20)
[2020-05-22] MEDS: Metoprolol Tartrate 50 MG TAB PO SCH (21:20)
[2020-05-23] MEDS: Morphine 2 MG/ML VIAL SLOW IVP PRN ×3 (01:03→20:47)
[2020-05-23 04:40] LABS: Anion Gap 18 mmol/L (10-20); BUN (Urea Nitrogen) 21 mg/dL (8.4-25.7); Calc. Creatinine Clearance 57 mL/min (70-130); Calcium 7.4 mg/dL (7.8-10.44); Carbon Dioxide 24 mmol/L (23-31); Chloride 95 mmol/L (98-107); Estimated GFR-MDRD 60; Glucose 135 mg/dL (83-110); Phosphorus 3.3 mg/dL (2.3-4.7); Potassium 3.4 mmol/L (3.5-5.1); Sodium 134 mmol/L (136-145)
[2020-05-23 04:44] LABS: Magnesium 0.8 mg/dL (1.6-2.6)
[2020-05-23] MEDS ORDERED: Electrolyte Replacement Protoc 1 EACH EACH FS SCH (05:15)
[2020-05-23] MEDS ORDERED: Magnesium Sulfate 4 GM in Sodium Chloride 0.9% 250 ML 250 ML IVPB SCH ×2 (05:15→13:00)
[2020-05-23 05:42] LABS: Band 21 % (5-11); Hemoglobin 8.2 g/dL (14.0-18.0); Lymphocytes 14 % (21-51); MDiff Complete? YES; Mean Corpuscular HGB CONC 33.9 g/dL (32.0-36.0); Mean Corpuscular Hemoglobin 33.3 pg (27.0-31.0); Mean Corpuscular Volume 98.3 fL (78.0-98.0); Mean Platelet Volume 6.9 fL (7.4-10.4); Monocytes 18 % (0-10); Neutrophil 47 % (42-75); Platelet Count 220 thou/uL (130-400); RBC Distribution Width 12.6 % (11.5-14.5); Red Blood Cell (RBC) Count 2.46 mill/uL (4.70-6.10); White Blood Cell (WBC) Count 2.8 thou/uL (4.8-10.8)
[2020-05-23] MEDS: Cefepime 1 GM in Sodium Chloride 0.9% 100 ML IVPB SCH (08:59)
[2020-05-23] MEDS: Potassium Chloride 20 MEQ in Premix Bag 1 BAG IVPB SCH ×2 (09:00→12:25)
[2020-05-23] MEDS: Enoxaparin Sodium 30 MG/0.3 ML SYRINGE SC SCH (09:01)
[2020-05-23] MEDS: Metoclopramide 10 MG/10 ML UDCUP PO SCH ×4 (09:01→20:46)
[2020-05-23] MEDS: Metoprolol Tartrate 100 MG TAB PO SCH (09:01)
[2020-05-23] MEDS: Pantoprazole 40 MG GRANULES PACKET PER TUBE SCH (09:01)
[2020-05-23] MEDS: Ketotifen Fumarate 0.025% Ophth Soln 5 ml Bottle EA EYE SCH ×2 (09:01→20:48)
[2020-05-23] MEDS: Clopidogrel Bisulfate 75 MG TAB PO SCH (09:01)
[2020-05-23] MEDS: Amlodipine 10 MG TAB PO SCH (09:01)
[2020-05-23] MEDS: Nystatin 500,000 UNITS/5 ML UDCUP SSW SCH ×4 (09:02→20:47)
[2020-05-23] MEDS: Diabetic Tussin 200 MG/10 ML UDCUP PER TUBE PRN (09:24)
[2020-05-23] MEDS ORDERED: Iopamidol-370 76% 500 ML 1 ML ONE (09:50)
[2020-05-23] MEDS: Vancomycin 1.5 GRAM/300 ML BAG 1.5 GM in Premix Bag 1 BAG IVPB SCH ×2 (10:15→21:29)
--- NOTE | 2020-05-23 10:41 | PDOC.HOSPP ---
- Subjective Encounter Date: 05/23/20 Encounter Time: 07:00 Subjective: Patient has difficulty tolerating tube feeding, patient also gets recurrent fever, his last fever was T maximum 102 last night, - Objective Vital Signs & Weight: Vital Signs (12 hours) Temp Pulse Resp BP Pulse Ox 05/23/20 09:01 109 H 05/23/20 08:31 98.9 F 109 H 22 H 109/55 L 96 05/23/20 03:00 99.0 F 05/22/20 23:58 100.3 F H 05/22/20 23:28 102.5 F H Weight Admit Weight 160 lb Weight 160 lb I&O: 05/22/20 05/23/20 05/24/20 06:59 06:59 06:59 Intake Total 1220 3490 100 Output Total 1 Balance 1220 3489 100 Result Diagrams: 05/23/20 03:54 05/23/20 03:54 Additional Labs: Accuchecks 05/22/20 05/22/20 05/22/20 20:35 16:48 11:40 POC Glucose 130 H 162 H 172 H Hospitalist ROS - Review of Systems Constitutional: reports: fever, weakness. denies: chills, sweats, malaise, other Respiratory: denies: cough, dry, shortness of breath, hemoptysis, SOB with excertion, pleuritic pain, sputum, wheezing, other Cardiovascular: denies: chest pain, palpitations, orthopnea, paroxysmal noc. dyspnea, edema, light headedness, other Gastrointestinal: denies: nausea, vomiting, abdominal pain, diarrhea, constipation, melena, hematochezia, other Genitourinary: denies: dysuria, frequency, incontinence, hematuria, retention, other Musculoskeletal: denies: neck pain, shoulder pain, arm pain, back pain, hand pain, leg pain, foot pain, other Skin: denies: rash, lesions, daquan, bruising, other - Medication Medications: Active Medications Generic Name Dose Route Start Last Admin Trade Name Freq PRN Reason Stop Dose Admin Acetaminophen 650 mg 05/18/20 19:22 05/22/20 23:28 Acetaminophen 650 Mg Suppository HI 650 mg Q4H PRN Administration Headache/Fever/Mild Pain (1-3) Acetaminophen/Codeine Phosphate 1 tab 05/19/20 07:05 05/22/20 05:29 Acetaminophen/Codeine 30-300mg Tablet PO 1 tab Q6H PRN Administration Severe Pain (7-10) Amlodipine Besylate 10 mg 05/19/20 09:00 05/23/20 09:01 Amlodipine 10 Mg Tab PO 10 mg DAILY MAR Administration Clopidogrel Bisulfate 75 mg 05/19/20 09:00 05/23/20 09:01 Clopidogrel Bisulfate 75 Mg Tab PO 75 mg DAILY MAR Administration Enoxaparin Sodium 30 mg 05/19/20 09:00 05/23/20 09:01 Enoxaparin Sodium 30 Mg/0.3 Ml Syringe SC 30 mg 0900 MAR Administration Guaifenesin 200 mg 05/22/20 07:59 05/23/20 09:24 Diabetic Tussin 200 Mg/10 Ml Udcup PER TUBE 200 mg Q4H PRN Administration Cough Dextrose/Water 1,000 mls @ 0 mls/hr 05/18/20 19:27 05/19/20 12:35 D5w IV 1,000 mls .Q0M PRN Administration Hypoglycemia As Directed Cefepime HCl 1 gm/ Sodium 100 mls @ 200 mls/hr 05/20/20 18:00 05/23/20 08:59 Chloride IVPB 100 mls 0600,1800 MAR Administration Vancomycin HCl 1.5 gm/ Device 300 mls @ 200 mls/hr 05/23/20 09:00 05/23/20 10:15 IVPB 300 mls Q12HR MAR Administration Ketotifen Fumarate 1 drop 05/19/20 09:00 05/23/20 09:01 Ketotifen Fumarate 0.025% Oph Soln 5 Ml Bottle EA EYE 1 drop BID MAR Administration Metoclopramide HCl 5 mg 05/20/20 07:30 05/23/20 09:01 Metoclopramide 10 Mg/10 Ml Udcup PO 5 mg ACHS MAR Administration Metoprolol Tartrate 50 mg 05/19/20 21:00 05/22/20 21:20 Metoprolol Tartrate 50 Mg Tab PO 50 mg HS MAR Administration Metoprolol Tartrate 100 mg 05/19/20 09:00 05/23/20 09:01 Metoprolol Tartrate 100 Mg Tab PO 100 mg QAM AMR Administration Morphine Sulfate 2 mg 05/19/20 12:06 05/23/20 01:03 Morphine 2 Mg/Ml Vial SLOW IVP 2 mg Q4H PRN Administration Severe Pain (7-10) Nystatin 500,000 units 05/18/20 21:00 05/23/20 09:02 Nystatin 500,000 Units/5 Ml Udcup SSW Not Given QID MAR Ondansetron HCl 4 mg 05/21/20 13:00 05/22/20 19:53 Ondansetron Pf 4 Mg/2 Ml Vial IVP 4 mg Q6H PRN Administration Nausea/Vomiting Pantoprazole Sodium 40 mg 05/20/20 09:00 05/23/20 09:01 Pantoprazole 40 Mg Granules Packet PER TUBE 40 mg DAILY MAR Administration Rosuvastatin Calcium 40 mg 05/19/20 21:00 05/22/20 21:20 Rosuvastatin 20 Mg Tab PO 40 mg HS MAR Administration Scopolamine 1.5 mg 05/19/20 12:00 05/22/20 11:58 Scopolamine 1.5 Mg/72 Hour Patch TD 1.5 mg Q3D MAR Administration Sodium Chloride 10 ml 05/20/20 21:00 05/23/20 09:02 Flush - Normal Saline 10 Ml Syringe IVF 10 ml Q12HR MAR Administration Tamsulosin HCl 0.8 mg 05/19/20 21:00 05/22/20 21:20 Tamsulosin Hcl 0.4 Mg Cap PO 0.8 mg HS MAR Administration Tramadol HCl 50 mg 05/19/20 12:02 05/23/20 03:54 Tramadol Hcl 50 Mg Tab PO 50 mg Q6H PRN Administration Moderate Pain (4-6) - Exam General Appearance: NAD, awake alert Eye: PERRL, anicteric sclera ENT: normocephalic atraumatic, no oropharyngeal lesions Neck: supple, symmetric, no JVD, no thyromegaly Heart: RRR, no murmur, no gallops, no rubs Respiratory: CTAB, no wheezes, no rales, no ronchi Gastrointestinal: soft, non-tender, non-distended, normal bowel sounds, no palpable masses Gastrointestinal - other findings: PEG tube in place Extremities: no clubbing, no edema Skin: normal turgor, no lesions Neurological: no focal deficits Musculoskeletal: normal tone, normal strength Psychiatric: normal affect, normal behavior Hosp A/P (1) Recurrent fever, cause unknown Code(s): R50.9 - FEVER, UNSPECIFIED Status: Acute (2) Hypokalemia Code(s): E87.6 - HYPOKALEMIA Status: Acute (3) Hypomagnesemia Code(s): E83.42 - HYPOMAGNESEMIA Status: Acute (4) Intractable nausea and vomiting Code(s): R11.2 - NAUSEA WITH VOMITING, UNSPECIFIED Status: Resolved (5) Moderate dehydration Code(s): E86.0 - DEHYDRATION Status: Resolved (6) Squamous cell carcinoma of head and neck Code(s): C76.0 - MALIGNANT NEOPLASM OF HEAD, FACE AND NECK Status: Chronic (7) CKD (chronic kidney disease), stage III Code(s): N18.3 - CHRONIC KIDNEY DISEASE, STAGE 3 (MODERATE) * DO NOT USE * Status: Chronic (8) Chronic anticoagulation Code(s): Z79.01 - POT RUNNER (CURRENT) USE OF ANTICOAGULANTS Status: Chronic (9) DM2 (diabetes mellitus, type 2) Status: Chronic Qualifiers: Diabetes mellitus snf insulin use: without snf use Diabetes me llitus complication status: with kidney complications Diabetes mellitus c omplication detail: with nephropathy Qualified Code(s): E11.21 - Type 2 diabetes mellitus with diabetic nephropathy (10) HTN (hypertension) Code(s): I10 - ESSENTIAL (PRIMARY) HYPERTENSION Status: Chronic Qualifiers: Hypertension type: essential hypertension Qualified Code(s): I10 - Essential (primary) hypertension (11) Afib Code(s): I48.91 - UNSPECIFIED ATRIAL FIBRILLATION Status: Chronic Qualifiers: Atrial fibrillation type: paroxysmal Qualified Code(s): I48.0 - Paroxysmal atrial fibrillation - Plan old records reviewed/req, continue antibiotics As patient is not tolerating tube feeding and he has recurrent fever, will try to get CT abdomen and pelvis to rule out any intra-abdominal process, patient has daily bowel movement, Today we have replace potassium and magnesium We will repeat a potassium and magnesium this afternoon and replete again if needed Today I will consult infectious disease team for evaluation to help us identify source of fever, still suspected for tumor fever Continue empiric cefepime and vancomycin
--- NOTE | 2020-05-23 11:40 | CT ---
EXAM: Abdomen and pelvic CT scan with contrast: HISTORY: History of squamous cell carcinoma in the neck, not tolerating PEG tube feedings, recurrent fever COMPARISON: 12/14/2017 FINDINGS: Lungs:No significant acute process. Liver: Unremarkable. Gallbladder:Multiple cholelithiasis without wall thickening or evidence for acute cholecystitis. PEG tube in place within the stomach. Common bile duct:Normal Pancreas:Unremarkable Spleen:Unremarkable. Adrenal glands:Unremarkable. Kidneys:No renal calculus or acute obstruction. 3.6 cm upper pole right renal cyst. No evidence for bowel obstruction. Aorta:No evidence for aneurysm. Spine:Evidence for bilateral pars defects at L5 without significant anterolisthesis. No CT evidence for acute appendicitis. The urinary bladder is unremarkable. Reproductive system:Unremarkable as visualized. Hernias:None No abscess, adenopathy, or abnormal fluid collection within the abdomen or pelvis. IMPRESSION: Cholelithiasis without evidence for acute cholecystitis. Other findings as above.
[2020-05-23] MEDS: Ondansetron PF 4 MG/2 ML Vial IVP PRN ×2 (12:30→18:00)
[2020-05-23 12:37] LABS: Magnesium 1.1 mg/dL (1.6-2.6); Potassium 4.1 mmol/L (3.5-5.1)
--- NOTE | 2020-05-23 15:25 | RAD ---
EXAM: Chest one view: HISTORY: Cough and fever COMPARISON: 05/18/2020 FINDINGS: Heart size: Within normal limits. Lungs: Clear of acute process. No evidence for confluent lobar pneumonia, significant pleural effusion, acute edema, or pneumothorax , or other significant acute process. IMPRESSION: No significant acute intrathoracic disease.
--- NOTE | 2020-05-23 15:32 | CON ---
DATE OF CONSULTATION: 05/23/2020 REASON FOR CONSULTATION: Fever. HISTORY OF PRESENT ILLNESS: A 74-year-old, history of prostate cancer in remission, type 2 diabetes, hypertension, AFib, and recently diagnosed head and neck squamous cell cancer, who is undergoing treatment with radiation and weekly cisplatin. He finished his treatment recently, and for the past 2 weeks, has had problems with swallowing his oral secretions with frequent coughing spells and inability to maintain his requirements in terms of nutritional and electrolyte/fluid intake. This has required IV fluids, gastrostomy tube placement, and he has had an increase in the amount of nutrition administered through his G-tube. He has had 2 episodes of vomiting altogether, but he continued to decline and he was admitted because he was listless and appeared unwell. brought him to the emergency room. On arrival, his findings included blood pressure 117/62, pulse 107, temperature 99.5, O2 saturations were 100% on room air. He appeared frail, cachectic. The exam was remarkable for a slightly erythematous oropharynx. Breath sounds were clear. Heart exam showed a systolic ejection murmur. Gastrostomy tube exit site was normal. Abdomen flat, soft, nontender. No bladder distention. No joint inflammatory activity. Initial findings also included a white cell count 2.7, hemoglobin 8.4, MCV 96, platelets 234, 17% bands, 27% monocytes. Initial chemistry; sodium 131, creatinine 1.14, magnesium 0.9. Liver profile normal. CK normal. Albumin 3.4, globulin 2.8. Lipase 12. Urinalysis was essentially normal except for some urobilinogen. The patient had a CT of chest on admission, lungs were clear and no effusion. Abdomen and pelvis CT was completed, which was unremarkable. The patient did have gallbladder stones, but no evidence of cholecystitis. Currently, Mr. Antonio appears unwell in the oncology unit. He is lying on his right lateral decubitus with obvious pooling of secretions in the upper airways and difficulty with swallowing or managing them. He will cough intermittently from obvious aspiration of secretions most likely. He denies any headaches. No back pain. No chest pain. No abdominal pain or diarrhea. Voiding without difficulty. No joint symptoms. No bleeding. His neurological status is stable other than listlessness follows commands. Recollection is a little bit impaired. PAST MEDICAL HISTORY: Head and neck cancer, having finished treatment recently with chemoradiation; prostate cancer in remission; type 2 diabetes; hypertension; hyperlipidemia; AFib. PAST SURGICAL HISTORY: Neck biopsy, watchman procedure for management of atrial fibrillation, and back surgery. ALLERGIES: HYDROCODONE. CURRENT MEDICATIONS: 1. Norvasc. 2. Cefepime. 3. Plavix. 4. Electrolyte solution. 5. Enoxaparin, prophylactic dose. 6. Insulin. 7. Zaditor ophthalmic solution. 8. Imodium p.r.n. 9. Metoprolol. 10. Reglan. 11. Pantoprazole. 12. Rosuvastatin. 13. Scopolamine. 14. Vancomycin. FAMILY HISTORY: Head and neck cancer. SOCIAL HISTORY: . Lives with spouse. Former smoker. Used to drink alcoholic beverages but not any more. PHYSICAL EXAMINATION: GENERAL: The patient appears chronically ill, emaciated. VITAL SIGNS: On arrival, his temperature was 100, went up to 101.6 the next day and he was started on antimicrobials and then on the was 102.5 and then 102.5 on the second time same day. Today, he has been afebrile thus far. Blood pressure 120/60, heart rate 75, respiratory rate 18, and O2 saturation 99. SKIN: Shows the percutaneous gastrostomy exit side which appears normal. Peripheral IV access, no venipuncture site, appears inflamed. No lymphadenopathy. Some temporal wasting. HEENT: Ocular movements conjugate. Pupils are equal. Conjunctivae normal. Oral cavity with numerous teeth. The oral mucosa is moist without lesions. There is erythema in the anterior neck area. No neck tenderness. LUNGS: With symmetric air entry. Fairly clear breath sounds. ABDOMEN: Soft. Not distended or tender. No ascites. No bladder distention. EXTREMITIES: No joint inflammatory activity. No edema. He is able to move all extremities. Plantar responses are flexor. NEUROLOGIC: He is awake, alert, oriented, follows commands. Recollection is somewhat limited. LABORATORY AND DIAGNOSTIC DATA: Followup labs; white cell count is at 2.8, hemoglobin 8.2, platelets 220, bands went up to 34, now they are down to 21%. No other changes . Two sets of blood cultures no growth from the 18th. Final urine culture results with 10,000 to 12,5000 CFUs, mixed skin savanna. ASSESSMENT: 1. History of type 2 diabetes, prostate cancer in remission, head and neck cancer, status post radiation and cisplatin, completion of therapy. 2. Inability to swallow with pooling of secretions and evidence of aspiration, which is chronic since the development of inflammatory changes associated with the head and neck cancer treatment. 3. Gastrostomy tube feedings. 4. Fever for the past week or so. DISCUSSION: Despite the absence of changes on the initial CT scan, the clinical findings are suggestive of aspiration as the cause of the fever. A fistula between the esophagus and the respiratory tract is less likely. Other possibilities would include an opportunistic infectious process, cytomegalovirus infection, and endemic fungal infection that has recurred, mycobacterial infection. Drug-associated fever is less likely. We will go ahead and repeat the chest x-ray. Continue monitoring the response to the antimicrobials administered. COVID-19 has been tested already 3 times in January, April, and now in May. We will go ahead and submit an antibody test to complete the ruling out procedure for COVID-19 in view of the high prevalence of disease in the area. Increase Cefepime dose to 2g q12hr. Job ID: [id number] [facility] [place]
[2020-05-23] MEDS: Cefepime 2 GM in Sodium Chloride 0.9% 100 ML IVPB SCH (20:00)
[2020-05-23] MEDS: Tamsulosin HCl 0.4 MG CAP PO SCH (20:46)
[2020-05-23] MEDS: Metoprolol Tartrate 50 MG TAB PO SCH (20:46)
[2020-05-23] MEDS: Rosuvastatin 20 MG TAB PO SCH (20:46)
[2020-05-24] MEDS: Morphine 2 MG/ML VIAL SLOW IVP PRN ×4 (03:35→21:42)
[2020-05-24] MEDS: Cefepime 2 GM in Sodium Chloride 0.9% 100 ML IVPB SCH (05:36)
[2020-05-24] MEDS: Ondansetron PF 4 MG/2 ML Vial IVP PRN ×2 (05:38→11:20)
[2020-05-24] MEDS: Acetaminophen/Codeine 30-300mg Tablet PO PRN (05:38)
[2020-05-24] MEDS ORDERED: Magnesium 2 GM/50 ML 2 GM in Premix Bag 1 BAG IVPB SCH (06:30)
[2020-05-24] MEDS: Metoclopramide 10 MG/10 ML UDCUP PO SCH ×4 (08:29→21:38)
[2020-05-24] MEDS: Clopidogrel Bisulfate 75 MG TAB PO SCH (08:29)
[2020-05-24] MEDS: Ketotifen Fumarate 0.025% Ophth Soln 5 ml Bottle EA EYE SCH ×2 (08:30→21:38)
[2020-05-24] MEDS: Enoxaparin Sodium 30 MG/0.3 ML SYRINGE SC SCH (08:30)
[2020-05-24] MEDS: Pantoprazole 40 MG GRANULES PACKET PER TUBE SCH (08:35)
[2020-05-24] MEDS: Nystatin 500,000 UNITS/5 ML UDCUP SSW SCH ×4 (08:36→20:14)
[2020-05-24] MEDS: Metoprolol Tartrate 100 MG TAB PO SCH (08:36)
[2020-05-24] MEDS: Amlodipine 10 MG TAB PO SCH (08:36)
[2020-05-24 09:15] LABS: Vancomycin, Trough 23.8 ug/mL
[2020-05-24] MEDS: Vancomycin 1.5 GRAM/300 ML BAG 1.5 GM in Premix Bag 1 BAG IVPB SCH (09:42)
[2020-05-24] MEDS: Diabetic Tussin 200 MG/10 ML UDCUP PER TUBE PRN ×2 (10:02→21:57)
[2020-05-24 10:31] LABS: SARS-CoV-2 IgG Ab Non-Reactive (NonReactive); SARS-CoV-2 IgG Index 0.01 S/CO (< 1.40)
--- NOTE | 2020-05-24 10:44 | PDOC.HOSPP ---
- Subjective Encounter Date: 05/24/20 Subjective: Patient complains of throat pain and difficulty swallowing/talking secondary to radiation treatment this morning. Only other concerns are about his cell phone that he lost while in the hospital. - Objective Vital Signs & Weight: Vital Signs (12 hours) Temp Pulse Resp BP BP Pulse Ox 05/24/20 08:36 78 112/57 L 05/24/20 07:49 98.5 F 86 18 106/57 L 98 05/24/20 03:54 99.4 F 05/23/20 23:23 99.9 F H Weight Admit Weight 72.575 kg Weight 72.575 kg I&O: 05/23/20 05/24/20 05/25/20 06:59 06:59 06:59 Intake Total 3490 1595 Output Total 1 Balance 3489 1595 Result Diagrams: 05/23/20 03:54 05/23/20 12:03 Additional Labs: Accuchecks 05/24/20 05/23/20 05/23/20 05:59 20:28 16:12 POC Glucose 131 H 155 H 147 H 05/23/20 05/21/20 05/21/20 12:00 16:14 05:55 POC Glucose 160 H 137 H 141 H Hospitalist ROS - Review of Systems Constitutional: denies: fever, chills, sweats ENT: reports: throat pain Respiratory: denies: shortness of breath Cardiovascular: denies: chest pain, edema Gastrointestinal: denies: abdominal pain, diarrhea, constipation Genitourinary: denies: dysuria Musculoskeletal: reports: other (Denies generalized muscle pain, denies muscle spasms or cramps) Neurological: reports: weakness, incoordination, other (denies tremors) - Medication Medications: Active Medications Generic Name Dose Route Start Last Admin Trade Name Freq PRN Reason Stop Dose Admin Acetaminophen 650 mg 05/18/20 19:22 05/22/20 23:28 Acetaminophen 650 Mg Suppository [place] 650 mg Q4H PRN Administration Headache/Fever/Mild Pain (1-3) Acetaminophen/Codeine Phosphate 1 tab 05/19/20 07:05 05/24/20 05:38 Acetaminophen/Codeine 30-300mg Tablet PO 1 tab Q6H PRN Administration Severe Pain (7-10) Clopidogrel Bisulfate 75 mg 05/19/20 09:00 05/24/20 08:29 Clopidogrel Bisulfate 75 Mg Tab PO 75 mg DAILY MAR Administration Enoxaparin Sodium 30 mg 05/19/20 09:00 05/24/20 08:30 Enoxaparin Sodium 30 Mg/0.3 Ml Syringe SC 30 mg 0900 MRA Administration Guaifenesin 200 mg 05/22/20 07:59 05/24/20 10:02 Diabetic Tussin 200 Mg/10 Ml Udcup PER TUBE 200 mg Q4H PRN Administration Cough Dextrose/Water 1,000 mls @ 0 mls/hr 05/18/20 19:27 05/19/20 12:35 D5w IV 1,000 mls .Q0M PRN Administration Hypoglycemia As Directed Cefepime HCl 2 gm/ Sodium 100 mls @ 200 mls/hr 05/23/20 18:00 05/24/20 05:36 Chloride IVPB 100 mls 0600,1800 MAR Administration Ketotifen Fumarate 1 drop 05/19/20 09:00 05/24/20 08:30 Ketotifen Fumarate 0.025% Ophth Soln 5 Ml Bottle EA EYE 1 drop BID MAR Administration Metoclopramide HCl 5 mg 05/20/20 07:30 05/24/20 08:29 Metoclopramide 10 Mg/10 Ml Udcup PO 5 mg ACHS MAR Administration Metoclopramide HCl 5 mg 05/22/20 07:59 05/23/20 18:00 Metoclopramide Hcl 10 Mg/2 Ml Vial IVP 5 mg Q4H PRN Administration Nausea Metoprolol Tartrate 100 mg 05/19/20 09:00 05/24/20 08:36 Metoprolol Tartrate 100 Mg Tab PO Not Given QAM [facility] Morphine Sulfate 2 mg 05/19/20 12:06 05/24/20 03:35 Morphine 2 Mg/Ml Vial SLOW IVP 2 mg Q4H PRN Administration Severe Pain (7-10) Nystatin 500,000 units 05/18/20 21:00 05/24/20 08:36 Nystatin 500,000 Units/5 Ml Udcup SSW Not Given QID [facility] Ondansetron HCl 4 mg 05/21/20 13:00 05/24/20 05:38 Ondansetron Pf 4 Mg/2 Ml Vial IVP 4 mg Q6H PRN Administration Nausea/Vomiting Pantoprazole Sodium 40 mg 05/20/20 09:00 05/24/20 08:35 Pantoprazole 40 Mg Granules Packet PER TUBE 40 mg DAILY MAR Administration Rosuvastatin Calcium 40 mg 05/19/20 21:00 05/23/20 20:46 Rosuvastatin 20 Mg Tab PO 40 mg HS MAR Administration Scopolamine 1.5 mg 05/19/20 12:00 05/22/20 11:58 Scopolamine 1.5 Mg/72 Hour Patch TD 1.5 mg Q3D MAR Administration Sodium Chloride 10 ml 05/20/20 21:00 05/24/20 08:36 Flush - Normal Saline 10 Ml Syringe IVF 10 ml Q12HR MAR Administration Tamsulosin HCl 0.8 mg 05/19/20 21:00 05/23/20 20:46 Tamsulosin Hcl 0.4 Mg Cap PO 0.8 mg HS MAR Administration Tramadol HCl 50 mg 05/19/20 12:02 05/23/20 03:54 Tramadol Hcl 50 Mg Tab PO 50 mg Q6H PRN Administration Moderate Pain (4-6) - Exam General Appearance: awake alert (appears uncomfortable, hoarse voice) Eye: anicteric sclera ENT: normocephalic atraumatic, no oropharyngeal lesions Neck: supple, symmetric, no JVD Heart: RRR, no murmur, no gallops, no rubs Respiratory: no wheezes, no rales, normal chest expansion, no tachypnea, rhonchi (expiratory) Gastrointestinal: soft, non-tender, non-distended, normal bowel sounds Extremities: no cyanosis, no clubbing, no edema Skin: no lesions, no rashes Neurological: no focal deficits, no new deficit Musculoskeletal: diffuse muscle atrophy Psychiatric: A&O x 3 (depressed affect), lethargic Hosp A/P (1) Hypokalemia Code(s): E87.6 - HYPOKALEMIA Status: Acute (2) Hypomagnesemia Code(s): E83.42 - HYPOMAGNESEMIA Status: Acute (3) Recurrent fever, cause unknown Code(s): R50.9 - FEVER, UNSPECIFIED Status: Acute (4) Afib Code(s): I48.91 - UNSPECIFIED ATRIAL FIBRILLATION Status: Chronic Qualifiers: Atrial fibrillation type: paroxysmal Qualified Code(s): I48.0 - Paroxysmal atrial fibrillation (5) Dyslipidemia Code(s): E78.5 - HYPERLIPIDEMIA, UNSPECIFIED Status: Chronic (6) Squamous cell carcinoma of head and neck Code(s): C76.0 - MALIGNANT NEOPLASM OF HEAD, FACE AND NECK Status: Chronic (7) Intractable nausea and vomiting Code(s): R11.2 - NAUSEA WITH VOMITING, UNSPECIFIED Status: Resolved (8) Moderate dehydration Code(s): E86.0 - DEHYDRATION Status: Resolved (9) Alcohol abuse Code(s): F10.10 - ALCOHOL ABUSE, UNCOMPLICATED Status: Acute - Plan old records reviewed/req, plan discussed w/ family This patient is a 74 YO man with a PMH of malignant neoplasm of head, face and neck, CKD stage III, T2DM, and HTN who presented with fever of unknown origin 6 days ago. He had radiation this morning and denies any acute health concerns unrelated to his therapy. Tmax for the last 24 hours was 99.9 at 23:23. His BP dropped from to 130s systolic yesterday to 106/56 this am. His WBC has remained in the two thousands since admission and his H/H is stable at 8/24. His Mg has improved from 0.8 yesterday to 1.8 today. 1. FUO: Aspiration PNA vs. opportunistic infection vs. Cancer -continue Cefepime and Vancomycin, and increase Cefepime to 2g q12hr -as per ID, repeat CXR and order COVID-19 antibody test to r/o infectious etiologies -repeat CBC, BMP qam and vitals q4hr 2. Hypomagnesemia -resolved -repeat BMP qam to monitor 3. Throat pain: secondary to radiation -Mucinex and pain meds PRN 4. Hypotension -continue 1000 mls D5 -monitor BMP for glucose qam and vitals Q4hr Discussed with the family member, Today if he does not get any fever then will consider discharging him home tomorrow
[2020-05-24] MEDS ORDERED: Iopamidol-370 76% 500 ML 1 ML ONE (12:21)
--- NOTE | 2020-05-24 12:42 | PDOC.HOSPP ---
- Subjective Encounter Date: 05/24/20 Encounter Time: 10:00 Subjective: Patient seen and examined. No new complaints. No overnight events - Objective Vital Signs & Weight: Vital Signs (12 hours) Temp Pulse Resp BP BP Pulse Ox 05/24/20 11:55 99.0 F 05/24/20 08:36 78 112/57 L 05/24/20 08:00 98 05/24/20 07:49 98.5 F 86 18 106/57 L 98 05/24/20 03:54 99.4 F Weight Admit Weight 160 lb Weight 160 lb I&O: 05/23/20 05/24/20 05/25/20 06:59 06:59 06:59 Intake Total 3490 1595 330 Output Total 1 Balance 3489 1595 330 Result Diagrams: 05/23/20 03:54 05/23/20 12:03 Additional Labs: Accuchecks 05/24/20 05/24/20 05/23/20 11:14 05:59 20:28 POC Glucose 150 H 131 H 155 H 05/23/20 05/21/20 05/21/20 16:12 16:14 05:55 POC Glucose 147 H 137 H 141 H Hospitalist ROS - Review of Systems Respiratory: denies: cough, dry, shortness of breath, hemoptysis, SOB with excertion, pleuritic pain, sputum, wheezing, other Cardiovascular: denies: chest pain, palpitations, orthopnea, paroxysmal noc. dyspnea, edema, light headedness, other Gastrointestinal: denies: nausea, vomiting, abdominal pain, diarrhea, constipation, melena, hematochezia, other Genitourinary: denies: dysuria, frequency, incontinence, hematuria, retention, other Musculoskeletal: denies: neck pain, shoulder pain, arm pain, back pain, hand p ain, leg pain, foot pain, other - Medication Medications: Active Medications Generic Name Dose Route Start Last Admin Trade Name Freq PRN Reason Stop Dose Admin Acetaminophen 650 mg 05/18/20 19:22 05/22/20 23:28 Acetaminophen 650 Mg Suppository [place] 650 mg Q4H PRN Administration Headache/Fever/Mild Pain (1-3) Acetaminophen/Codeine Phosphate 1 tab 05/19/20 07:05 05/24/20 05:38 Acetaminophen/Codeine 30-300mg Tablet PO 1 tab Q6H PRN Administration Severe Pain (7-10) Clopidogrel Bisulfate 75 mg 05/19/20 09:00 05/24/20 08:29 Clopidogrel Bisulfate 75 Mg Tab PO 75 mg DAILY MAR Administration Enoxaparin Sodium 30 mg 05/19/20 09:00 05/24/20 08:30 Enoxaparin Sodium 30 Mg/0.3 Ml Syringe SC 30 mg 0900 MAR Administration Guaifenesin 200 mg 05/22/20 07:59 05/24/20 10:02 Diabetic Tussin 200 Mg/10 Ml Udcup PER TUBE 200 mg Q4H PRN Administration Cough Dextrose/Water 1,000 mls @ 0 mls/hr 05/18/20 19:27 05/19/20 12:35 D5w IV 1,000 mls .Q0M PRN Administration Hypoglycemia As Directed Cefepime HCl 2 gm/ Sodium 100 mls @ 200 mls/hr 05/23/20 18:00 05/24/20 05:36 Chloride IVPB 100 mls 0600,1800 MAR Administration Ketotifen Fumarate 1 drop 05/19/20 09:00 05/24/20 08:30 Ketotifen Fumarate 0.025% Ophth Soln 5 Ml Bottle EA EYE 1 drop BID MAR Administration Metoclopramide HCl 5 mg 05/20/20 07:30 05/24/20 11:21 Metoclopramide 10 Mg/10 Ml Udcup PO 5 mg ACHS MAR Administration Metoclopramide HCl 5 mg 05/22/20 07:59 05/23/20 18:00 Metoclopramide Hcl 10 Mg/2 Ml Vial IVP 5 mg Q4H PRN Administration Nausea Metoprolol Tartrate 100 mg 05/19/20 09:00 05/24/20 08:36 Metoprolol Tartrate 100 Mg Tab PO Not Given QAM [facility] Morphine Sulfate 2 mg 05/19/20 12:06 05/24/20 11:32 Morphine 2 Mg/Ml Vial SLOW IVP 2 mg Q4H PRN Administration Severe Pain (7-10) Nystatin 500,000 units 05/18/20 21:00 05/24/20 11:58 Nystatin 500,000 Units/5 Ml Udcup SSW Not Given QID [facility] Ondansetron HCl 4 mg 05/21/20 13:00 05/24/20 11:20 Ondansetron Pf 4 Mg/2 Ml Vial IVP 4 mg Q6H PRN Administration Nausea/Vomiting Pantoprazole Sodium 40 mg 05/20/20 09:00 05/24/20 08:35 Pantoprazole 40 Mg Granules Packet PER TUBE 40 mg DAILY MAR Administration Rosuvastatin Calcium 40 mg 05/19/20 21:00 05/23/20 20:46 Rosuvastatin 20 Mg Tab PO 40 mg HS MAR Administration Scopolamine 1.5 mg 05/19/20 12:00 05/22/20 11:58 Scopolamine 1.5 Mg/72 Hour Patch TD 1.5 mg Q3D MAR Administration Sodium Chloride 10 ml 05/20/20 21:00 05/24/20 08:36 Flush - Normal Saline 10 Ml Syringe IVF 10 ml Q12HR MAR Administration Tamsulosin HCl 0.8 mg 05/19/20 21:00 05/23/20 20:46 Tamsulosin Hcl 0.4 Mg Cap PO 0.8 mg HS MAR Administration Tramadol HCl 50 mg 05/19/20 12:02 05/23/20 03:54 Tramadol Hcl 50 Mg Tab PO 50 mg Q6H PRN Administration Moderate Pain (4-6) - Exam General Appearance: NAD, awake alert Eye: PERRL, anicteric sclera ENT: normocephalic atraumatic, no oropharyngeal lesions Neck: supple, symmetric, no JVD, no thyromegaly Heart: RRR, no murmur, no gallops, no rubs Respiratory: CTAB, no wheezes, no rales, no ronchi Gastrointestinal: soft, non-tender, non-distended, normal bowel sounds Gastrointestinal - other findings: PEG tube in place Extremities: no cyanosis, no clubbing, no edema Skin: normal turgor, no lesions Neurological: no focal deficits Musculoskeletal: normal tone, normal strength Psychiatric: normal affect, normal behavior Hosp A/P (1) Hypokalemia Code(s): E87.6 - HYPOKALEMIA Status: Acute (2) Hypomagnesemia Code(s): E83.42 - HYPOMAGNESEMIA Status: Acute (3) Recurrent fever, cause unknown Code(s): R50.9 - FEVER, UNSPECIFIED Status: Acute (4) Afib Code(s): I48.91 - UNSPECIFIED ATRIAL FIBRILLATION Status: Chronic Qualifiers: Atrial fibrillation type: paroxysmal Qualified Code(s): I48.0 - Paroxysmal atrial fibrillation (5) Dyslipidemia Code(s): E78.5 - HYPERLIPIDEMIA, UNSPECIFIED Status: Chronic (6) Squamous cell carcinoma of head and neck Code(s): C76.0 - MALIGNANT NEOPLASM OF HEAD, FACE AND NECK Status: Chronic (7) Intractable nausea and vomiting Code(s): R11.2 - NAUSEA WITH VOMITING, UNSPECIFIED Status: Resolved (8) Moderate dehydration Code(s): E86.0 - DEHYDRATION Status: Resolved (9) Alcohol abuse Code(s): F10.10 - ALCOHOL ABUSE, UNCOMPLICATED Status: Acute - Plan old records reviewed/req, plan discussed w/ family, continue antibiotics This patient is a 74 YO man with a PMH of malignant neoplasm of head, face and neck, CKD stage III, T2DM, and HTN who presented with fever of unknown origin 6 days ago. He had radiation this morning and denies any acute health concerns unrelated to his therapy. Tmax for the last 24 hours was 99.9 at 23:23. His BP dropped from to 130s systolic yesterday to 106/56 this am. His WBC has remained in the two thousands since admission and his H/H is stable at 8/24. His Mg has improved from 0.8 yesterday to 1.8 today. 1. FUO: Aspiration PNA vs. opportunistic infection vs. Cancer -continue Cefepime and Vancomycin, and increase Cefepime to 2g q12hr -as per ID, repeat CXR and order COVID-19 antibody test to r/o infectious etiologies -repeat CBC, BMP qam and vitals q4hr 2. Hypomagnesemia -resolved -repeat BMP qam to monitor 3. Throat pain: secondary to radiation -Mucinex and pain meds PRN 4. Hypotension -continue 1000 mls D5 -monitor BMP for glucose qam and vitals Q4hr Discussed with the family member, Today if he does not get any fever then will consider discharging him home tomorrow
--- NOTE | 2020-05-24 12:59 | PRG ---
DATE OF SERVICE: 05/24/2020 SUBJECTIVE: Mr. Antonio is having a lot of pain in posterior oral cavity and he has this pretty much daily, still coughing intermittently. No chest pain. No abdominal pain or diarrhea symptoms. Temperature seems to have improved and his BP is 106/57, chronically ill appearing but in no acute distress. He has quite severe stomatitis involving the tongue and the posterior oropharynx is quite severe and particularly in the posterior oropharynx, I could not get a full look because of pain. His lungs are clear, S1 and S2. Regular rate. Abdomen, soft and not distended. No joint inflammatory activity. LABORATORY DATA: White cell count 2.8, hemoglobin 8.2, and platelets are 220 and creatinine 1.2. Repeat chest x-ray within normal limits. ASSESSMENT AND DISCUSSION: Type 2 diabetes, prostate cancer in remission. Head and neck cancer, status post radiation cisplatin with severe stomatitis, pharyngitis. The repeat chest x-ray was normal. So, I believe that the explanation for the patient's fever is the severe stomatitis. He may have an anaerobic component with a Jose Maria's angina in addition to the radiation induced changes. He seems to be responding initially to antimicrobial therapy and we will add Flagyl and discontinue vancomycin. Continue cefepime. Job ID: [id number] MTDD
[2020-05-24] MEDS ORDERED: Meropenem 1 GM in Sodium Chloride 0.9% 100 ML IVPB SCH (14:00)
[2020-05-24] MEDS: MEROPENEM 1 GM/50 ML 1 GM in Premix Bag 1 BAG IVPB SCH ×2 (14:23→22:35)
--- NOTE | 2020-05-24 14:52 | CT ---
CT neck with contrast: 05/24/2020 HISTORY: 74-year-old male with "hypopharyngeal pain, fever, stomatitis, and history of neck cancer" COMPARISON: 02/13/2020 FINDINGS: The previously demonstrated approximately 2 x 2 x 3 cm right level 2 pathologic lymph node is no long er present. There are new surgical clips in that region now. There is a new finding of diffuse soft tissue edema in that location, along with interval atrophy of the right sternocleidomastoid muscle, which has shaggy borders due to edema, with the edema extending into adjacent superficial subcutaneous spaces, as well as deep spaces, which includes right carotid space, visceral space bilaterally including strap muscles, retropharyngeal space diffusely, and in the larynx and hypopharynx. The laryngeal and hypopharyngeal edema includes mucosal enhancement plus diffuse thickening of the en tire epiglottis, aryepiglottic folds, and the true and false vocal cords; plus complete effacement of the right piriform sinus and almost complete effacement of left piriform sinus. There is no abscess. No cervical lymphadenopathy. Heavy atherosclerotic calcification of aortic arch, plus atherosclerotic calcification of bilateral p roximal internal, external, and common, carotid arteries. There is minimal development of atrophy of the bilateral parotid glands and submandibular glands. Inc reased enhancement of the submandibular glands. All of these findings are consistent with post radiation changes. IMPRESSION: 1.) Interval surgical resection of the malignant, pathologic right level 2 lymph node. 2) interval development of soft tissue edema in the deep and superficial soft tissues, especially the larynx and hypopharynx. 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 3) no abscess. 4) post radiation changes of the salivary glands.
[2020-05-24] MEDS ORDERED: Vancomycin 1.5 GRAM/300 ML BAG 1.5 GM in Premix Bag 1 BAG IVPB SCH (21:00)
[2020-05-24] MEDS: Tamsulosin HCl 0.4 MG CAP PO SCH (21:38)
[2020-05-24] MEDS: Rosuvastatin 20 MG TAB PO SCH (21:38)
[2020-05-25] MEDS: Morphine 2 MG/ML VIAL SLOW IVP PRN ×4 (03:18→22:29)
[2020-05-25] MEDS: MEROPENEM 1 GM/50 ML 1 GM in Premix Bag 1 BAG IVPB SCH ×3 (05:42→21:35)
[2020-05-25] MEDS: Metoclopramide 10 MG/10 ML UDCUP PO SCH ×4 (08:28→21:36)
[2020-05-25] MEDS: Pantoprazole 40 MG GRANULES PACKET PER TUBE SCH (08:29)
[2020-05-25] MEDS: Enoxaparin Sodium 30 MG/0.3 ML SYRINGE SC SCH (08:29)
[2020-05-25] MEDS: Clopidogrel Bisulfate 75 MG TAB PO SCH (08:29)
[2020-05-25] MEDS: Metoprolol Tartrate 100 MG TAB PO SCH (08:29)
[2020-05-25] MEDS: Ketotifen Fumarate 0.025% Ophth Soln 5 ml Bottle EA EYE SCH ×2 (08:30→21:36)
[2020-05-25] MEDS: Nystatin 500,000 UNITS/5 ML UDCUP SSW SCH ×4 (08:31→21:36)
[2020-05-25] MEDS: Diabetic Tussin 200 MG/10 ML UDCUP PER TUBE PRN ×4 (09:48→21:35)
[2020-05-25] MEDS: Acetaminophen/Codeine 30-300mg Tablet PO PRN ×2 (10:05→17:00)
[2020-05-25] MEDS: Scopolamine 1.5 mg/72 hour Patch TD SCH (11:39)
--- NOTE | 2020-05-25 12:11 | PDOC.HOSPP ---
- Subjective Encounter Date: 05/25/20 Encounter Time: 07:00 Subjective: Patient seen and examined. No new complaints. No overnight events - Objective Vital Signs & Weight: Vital Signs (12 hours) Temp Pulse Resp BP Pulse Ox 05/25/20 08:00 98.9 F 93 20 125/59 L 97 05/25/20 04:00 99.3 F Weight Admit Weight 160 lb Weight 160 lb I&O: 05/24/20 05/25/20 05/26/20 06:59 06:59 06:59 Intake Total 1595 1160 695 Balance 1595 1160 695 Result Diagrams: 05/23/20 03:54 05/23/20 12:03 Additional Labs: Accuchecks 05/25/20 05/25/20 05/24/20 11:13 05:37 21:34 POC Glucose 152 H 152 H 145 H 05/24/20 16:12 POC Glucose 122 H Hospitalist ROS - Review of Systems ENT: denies: ear pain, ear discharge, nose pain, nose discharge, nose congestion , mouth pain, mouth swelling, throat pain, throat swelling, other Respiratory: denies: cough, dry, shortness of breath, hemoptysis, SOB with excertion, pleuritic pain, sputum, wheezing, other Cardiovascular: denies: chest pain, palpitations, orthopnea, paroxysmal noc. dyspnea, edema, light headedness, other Gastrointestinal: denies: nausea, vomiting, abdominal pain, diarrhea, constipation, melena, hematochezia, other Genitourinary: denies: dysuria, frequency, incontinence, hematuria, retention, other Musculoskeletal: denies: neck pain, shoulder pain, arm pain, back pain, hand pain, leg pain, foot pain, other - Medication Medications: Active Medications Generic Name Dose Route Start Last Admin Trade Name Freq PRN Reason Stop Dose Admin Acetaminophen 650 mg 05/18/20 19:22 05/22/20 23:28 Acetaminophen 650 Mg Suppository [place] 650 mg Q4H PRN Administration Headache/Fever/Mild Pain (1-3) Acetaminophen/Codeine Phosphate 1 tab 05/19/20 07:05 05/25/20 10:05 Acetaminophen/Codeine 30-300mg Tablet PO 1 tab Q6H PRN Administration Severe Pain (7-10) Clopidogrel Bisulfate 75 mg 05/19/20 09:00 05/25/20 08:29 Clopidogrel Bisulfate 75 Mg Tab PO 75 mg DAILY MAR Administration Enoxaparin Sodium 30 mg 05/19/20 09:00 05/25/20 08:29 Enoxaparin Sodium 30 Mg/0.3 Ml Syringe SC 30 mg 0900 MAR Administration Guaifenesin 200 mg 05/22/20 07:59 05/25/20 09:48 Diabetic Tussin 200 Mg/10 Ml Udcup PER TUBE 200 mg Q4H PRN Administration Cough Dextrose/Water 1,000 mls @ 0 mls/hr 05/18/20 19:27 05/19/20 12:35 D5w IV 1,000 mls .Q0M PRN Administration Hypoglycemia As Directed Meropenem 1 gm/ Device 50 mls @ 200 mls/hr 05/24/20 14:00 05/25/20 05:42 IVPB 50 mls Q8HR MAR Administration Ketotifen Fumarate 1 drop 05/19/20 09:00 05/25/20 08:30 Ketotifen Fumarate 0.025% Ophth Soln 5 Ml Bottle EA EYE 1 drop BID MAR Administration Metoclopramide HCl 5 mg 05/20/20 07:30 05/25/20 11:41 Metoclopramide 10 Mg/10 Ml Udcup PO 5 mg ACHS MAR Administration Metoclopramide HCl 5 mg 05/22/20 07:59 05/23/20 18:00 Metoclopramide Hcl 10 Mg/2 Ml Vial IVP 5 mg Q4H PRN Administration Nausea Metoprolol Tartrate 100 mg 05/19/20 09:00 05/25/20 08:29 Metoprolol Tartrate 100 Mg Tab PO 100 mg QAM MAR Administration Morphine Sulfate 2 mg 05/19/20 12:06 05/25/20 07:11 Morphine 2 Mg/Ml Vial SLOW IVP 2 mg Q4H PRN Administration Severe Pain (7-10) Nystatin 500,000 units 05/18/20 21:00 05/25/20 08:31 Nystatin 500,000 Units/5 Ml Udcup SSW Not Given QID MAR Ondansetron HCl 4 mg 05/21/20 13:00 05/24/20 11:20 Ondansetron Pf 4 Mg/2 Ml Vial IVP 4 mg Q6H PRN Administration Nausea/Vomiting Pantoprazole Sodium 40 mg 05/20/20 09:00 05/25/20 08:29 Pantoprazole 40 Mg Granules Packet PER TUBE 40 mg DAILY MAR Administration Rosuvastatin Calcium 40 mg 05/19/20 21:00 05/24/20 21:38 Rosuvastatin 20 Mg Tab PO 40 mg HS MAR Administration Scopolamine 1.5 mg 05/19/20 12:00 05/25/20 11:39 Scopolamine 1.5 Mg/72 Hour Patch TD 1.5 mg Q3D MAR Administration Sodium Chloride 10 ml 05/20/20 21:00 05/25/20 08:31 Flush - Normal Saline 10 Ml Syringe IVF 10 ml Q12HR MAR Administration Tamsulosin HCl 0.8 mg 05/19/20 21:00 05/24/20 21:38 Tamsulosin Hcl 0.4 Mg Cap PO 0.8 mg HS MAR Administration Tramadol HCl 50 mg 05/19/20 12:02 05/23/20 03:54 Tramadol Hcl 50 Mg Tab PO 50 mg Q6H PRN Administration Moderate Pain (4-6) - Exam General Appearance: NAD, awake alert Eye: PERRL, anicteric sclera ENT: normocephalic atraumatic, no oropharyngeal lesions Neck: supple, symmetric, no JVD, no thyromegaly Heart: RRR, no murmur, no gallops, no rubs Respiratory: CTAB, no wheezes, no rales, no ronchi Gastrointestinal: soft, non-tender, non-distended, normal bowel sounds Extremities: no cyanosis, no clubbing, no edema Skin: normal turgor, no lesions Neurological: no focal deficits Musculoskeletal: normal tone, normal strength Psychiatric: normal affect, normal behavior Hosp A/P (1) Hypokalemia Code(s): E87.6 - HYPOKALEMIA Status: Resolved (2) Hypomagnesemia Code(s): E83.42 - HYPOMAGNESEMIA Status: Resolved (3) Recurrent fever, cause unknown Code(s): R50.9 - FEVER, UNSPECIFIED Status: Acute (4) Afib Code(s): I48.91 - UNSPECIFIED ATRIAL FIBRILLATION Status: Chronic Qualifiers: Atrial fibrillation type: paroxysmal Qualified Code(s): I48.0 - Paroxysmal atrial fibrillation (5) Dyslipidemia Code(s): E78.5 - HYPERLIPIDEMIA, UNSPECIFIED Status: Chronic (6) Squamous cell carcinoma of head and neck Code(s): C76.0 - MALIGNANT NEOPLASM OF HEAD, FACE AND NECK Status: Chronic (7) Intractable nausea and vomiting Code(s): R11.2 - NAUSEA WITH VOMITING, UNSPECIFIED Status: Resolved (8) Moderate dehydration Code(s): E86.0 - DEHYDRATION Status: Resolved (9) Alcohol abuse Code(s): F10.10 - ALCOHOL ABUSE, UNCOMPLICATED Status: Acute - Plan old records reviewed/req, continue antibiotics Patient has responded after meropenem, patient has low-grade fever earlier today, otherwise patient is clinically doing better, Patient will benefit from continuous therapy with meropenem at least today, di scussed with infectious disease If he remains afebrile today and tomorrow then patient clinically okay to be discharged
--- NOTE | 2020-05-25 14:04 | PDOC.DS.DS ---
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 Patient has received chemo and radiation for his cancer, he finished chemotherapy recently but he was on intermittent radiation therapy, patient has PEG tube in place, on admission patient was dehydrated, he had abnormal electro lytes, patient was also having on and off fever while in hospital. 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 Vancomycin was discontinued. Infectious disease team was consulted. Regarding his recurrent fever we did CT chest, abdomen and pelvis CT scan, chest x-ray, soft tissue neck CT scan which remained unremarkable for any acute process. His influenza screen is negative, his culture remain negative, His fever significantly started improving, patient was on room air, he expressed his wish to go home today, infectious disease cleared him for discharge. All new medication prescription sent to his pharmacy. Resuscitation Status: 05/18/20 19:22 Resuscitation Status Routine Resuscitation Status: FULL: Full Resuscitation - Labs Lab Results: 05/23/20 03:54 05/23/20 12:03 Microbiology - Entire Visit 05/19/20 18:57 Venous blood - Left Arm Blood Culture - Final NO GROWTH IN 5 DAYS 05/19/20 18:57 Venous blood - Right Arm Blood Culture - Final NO GROWTH IN 5 DAYS 05/20/20 22:31 Urine voided Urine Culture - Final - Diagnostic Interpretation Other Additional comments: Chest x-ray on admission showed chronic changes CTA chest showed cholelithiasis, no infiltration Shoulder x-ray and humeral x-ray negative for any fracture or dislocation Abdomen and pelvis CT scan showed no acute process Chest x-ray showed no acute cardiopulmonary process CT soft tissue neck scan showed radiation changes - Physical Exam Vitals: Vital Signs (12 hours) Temp Pulse Resp BP Pulse Ox 05/25/20 08:00 98.9 F 93 20 125/59 L 97 05/25/20 04:00 99.3 F Weight Admit Weight 160 lb Weight 160 lb Physical Exam: The patient was seen and examined on the day of discharge. Problem - Problem (1) Hypokalemia Code(s): E87.6 - HYPOKALEMIA Status: Resolved (2) Hypomagnesemia Code(s): E83.42 - HYPOMAGNESEMIA Status: Resolved (3) Recurrent fever, cause unknown Code(s): R50.9 - FEVER, UNSPECIFIED Status: Acute (4) Afib Code(s): I48.91 - UNSPECIFIED ATRIAL FIBRILLATION Status: Chronic Qualifiers: Atrial fibrillation type: paroxysmal Qualified Code(s): I48.0 - Paroxysmal atrial fibrillation (5) Dyslipidemia Code(s): E78.5 - HYPERLIPIDEMIA, UNSPECIFIED Status: Chronic (6) Squamous cell carcinoma of head and neck Code(s): C76.0 - MALIGNANT NEOPLASM OF HEAD, FACE AND NECK Status: Chronic (7) Intractable nausea and vomiting Code(s): R11.2 - NAUSEA WITH VOMITING, UNSPECIFIED Status: Resolved (8) Moderate dehydration Code(s): E86.0 - DEHYDRATION Status: Resolved (9) Alcohol abuse Code(s): F10.10 - ALCOHOL ABUSE, UNCOMPLICATED Status: Acute Plan - Discharge Medications Prescriptions: Amoxicillin/Potassium Clav [Augmentin 250mg/5mL Oral Susp] 15 ml PER TUBE Q8HR #450 ml Pantoprazole [Protonix] 40 mg PER TUBE DAILY #30 pk Metoclopramide [Reglan Oral Solution] 5 mg PER TUBE ACHS #600 ml Scopolamine [Transderm Scop] 1.5 mg TD Q3D #10 patch Home Medications: Medication Instructions Recorded Confirmed Type Olopatadine HCl 1 drop EA EYE DAILY 05/19/20 05/19/20 History Acetaminophen With Codeine 1 each PER TUBE Q6HR PRN #0 05/25/20 05/19/20 Rx [Acetaminophen-Cod #3 Tablet] Amlodipine [Norvasc] 10 mg PER TUBE DAILY #0 05/25/20 05/19/20 Rx Amoxicillin/Potassium Clav 15 ml PER TUBE Q8HR #450 ml 05/25/20 Rx [Augmentin 250mg/5mL Oral Susp] Clopidogrel Bisulfate [Clopidogrel] 75 mg PER TUBE DAILY #0 05/25/20 05/19/20 Rx Metoclopramide [Reglan Oral 5 mg PER TUBE ACHS #600 ml 05/25/20 Rx Solution] Metoprolol Tartrate 50 mg PER TUBE HS #0 05/25/20 05/19/20 Rx Metoprolol Tartrate 100 mg PER TUBE QAM #0 05/25/20 05/19/20 Rx Pantoprazole [Protonix] 40 mg PER TUBE DAILY #30 pk 05/25/20 Rx Rosuvastatin Calcium [Crestor] 40 mg PER TUBE HS #0 05/25/20 05/19/20 Rx Scopolamine [Transderm Scop] 1.5 mg TD Q3D #10 patch 05/25/20 Rx Tamsulosin HCl [Flomax] 0.8 mg PER TUBE HS #0 05/25/20 05/19/20 Rx metFORMIN HCl [Fortamet] 1,000 mg PER TUBE TID-WM #0 05/25/20 05/19/20 Rx Allergies: hydrocodone Allergy (Verified 05/19/20 02:16) facial itching loratadine Allergy (Verified 05/19/20 02:16) facial itching per pt - Discharge Instructions Activity:: Activity as Tolerated Nourishment:: Tube Feeding Diet Therapies:: Not Applicable Equipment/Supplies:: Not Applicable IV Therapy:: Not Applicable - Follow up Plan Referrals: Sonu Mckinley MD [Primary Care Provider] - Jace Arnold MD [Active] - Disposition: HOME Quality - Care Measures CORE MEASURES:: N/A
--- NOTE | 2020-05-25 15:08 | PRG ---
DATE OF SERVICE: 05/25/2020 SUBJECTIVE: Still with pain in the posterior oropharynx as usual, not much changed from prior visits. Overall, he feels better. He has a noted fever maybe low-grade 99.4 max. OBJECTIVE: VITAL SIGNS: Blood pressure normal, saturating 97% on room air. GENERAL: Appears in no distress. Much more alert. More participant in the conversation, following commands. HEENT: The oral cavity is about the same, but is able to open his mouth better. SKIN: He is not as erythematous as he used to be. LUNGS: Symmetric air entry. No crackles or wheezing. HEART: S1 and S2. Regular rate. No S3 or S4. ABDOMEN: Soft, not distended or tender. No ascites. No bladder distention. EXTREMITIES: No joint inflammatory activity. NEURO: Nonfocal. LABORATORY DATA: White cell count is 2.8, hemoglobin 8.2. Chemistry was not repeated. Cultures negative, 5 days blood cultures and urine. ASSESSMENT AND DISCUSSION: Type 2 diabetes, prostate cancer in remission, head and neck cancer, status post radiation with cisplatin and severe pharyngitis, stomatitis and fever likely due to Jose Maria's angina type situation, improved with antimicrobial therapy. Consider discharge planning on oral Augmentin tomorrow via gastrostomy tube using a suspension. Treat for 10 days. An alternate combination would be Omnicef plus Flagyl. Job ID: [id number]
[2020-05-25] MEDS: Rosuvastatin 20 MG TAB PO SCH (21:35)
[2020-05-25] MEDS: Tamsulosin HCl 0.4 MG CAP PO SCH (21:36)
[2020-05-26] MEDS: Morphine 2 MG/ML VIAL SLOW IVP PRN ×2 (02:34→09:02)
[2020-05-26] MEDS: MEROPENEM 1 GM/50 ML 1 GM in Premix Bag 1 BAG IVPB SCH ×2 (05:16→14:07)
[2020-05-26] MEDS: Acetaminophen/Codeine 30-300mg Tablet PO PRN (05:21)
[2020-05-26 08:23] VITALS: BP 124/59; TEMP 98.5
[2020-05-26] MEDS: Clopidogrel Bisulfate 75 MG TAB PO SCH (08:59)
[2020-05-26] MEDS: Metoclopramide 10 MG/10 ML UDCUP PO SCH ×2 (08:59→11:34)
[2020-05-26] MEDS: Ketotifen Fumarate 0.025% Ophth Soln 5 ml Bottle EA EYE SCH (09:00)
[2020-05-26] MEDS: Enoxaparin Sodium 30 MG/0.3 ML SYRINGE SC SCH (09:00)
[2020-05-26] MEDS: Nystatin 500,000 UNITS/5 ML UDCUP SSW SCH ×2 (09:01→14:06)
[2020-05-26] MEDS: Pantoprazole 40 MG GRANULES PACKET PER TUBE SCH (09:01)
[2020-05-26] MEDS: Metoprolol Tartrate 100 MG TAB PO SCH (09:01)
[2020-05-26] MEDS: Diabetic Tussin 200 MG/10 ML UDCUP PER TUBE PRN (09:02)
--- NOTE | 2020-05-26 09:19 | EKG ---
Test Reason : Blood Pressure : / mmHG Vent. Rate : 100 BPM Atrial Rate : 100 BPM P-R Int : 132 ms QRS Dur : 072 ms QT Int : 364 ms P-R-T Axes : 071 024 051 degrees QTc Int : 469 ms Sinus rhythm with Premature supraventricular complexes Otherwise normal ECG When compared with ECG of 18-MAY-2020 17:31, (Unconfirmed) No significant change was found Confirmed by ANICETO CORREIA, PARISA ([id number]) on 05/26/2020 9:19:41 AM Referred By: Arti CAZARES Confirmed By:PARISA MORELAND MD
--- NOTE | 2020-05-26 14:09 | PDOC.DS.DS ---
Provider - Provider Date of Admission: 05/18/20 18:58 Date of Discharge: 05/26/20 Admitting Provider: Nick Umanzor MD Consultations: Infectious Disease (Dr. Arnold), Oncology (Ms. 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 Patient has received chemo and radiation for his cancer, he finished chemotherapy recently but he was on intermittent radiation therapy, patient has PEG tube in place, on admission patient was dehydrated, he had abnormal electrolytes, patient was also having on and off fever while in hospital. 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 Vancomycin was discontinued. Infectious disease team was consulted. Regarding his recurrent fever we did CT chest, abdomen and pelvis CT scan, chest x-ray, soft tissue neck CT scan which remained unremarkable for any acute process. His influenza screen is negative, his culture remain negative, His fever significantly started improving, patient was on room air, he expressed his wish to go home today, infectious disease cleared him for discharge. All new medication prescription sent to his pharmacy. Addendum: Patient could not be discharged home on May 25, 2020 since he needed another day of IV antibiotics. He received the same and is being discharged home in a stable condition. Patient has upper airway secretions, will need suction apparatus at home. Case management has been involved in arranging for the same. Discharge diagnosis: 1. Fever of unknown origin 2. Dehydration 3. Hypokalemia 4. Hypomagnesemia Resuscitation Status: 05/18/20 19:22 Resuscitation Status Routine Resuscitation Status: FULL: Full Resuscitation - Labs Lab Results: 05/23/20 03:54 05/23/20 12:03 Microbiology - Entire Visit 05/19/20 18:57 Venous blood - Left Arm Blood Culture - Final NO GROWTH IN 5 DAYS 05/19/20 18:57 Venous blood - Right Arm Blood Culture - Final NO GROWTH IN 5 DAYS 05/20/20 22:31 Urine voided Urine Culture - Final - Physical Exam Vitals: Vital Signs (12 hours) Temp Pulse Resp BP Pulse Ox 05/26/20 08:00 98.5 F 80 18 124/59 L 97 05/26/20 04:00 98.4 F Weight Admit Weight 160 lb Weight 160 lb Physical Exam: The patient was seen and examined on the day of discharge. Patient denies chest pain or shortness of breath. Vital signs are stable. S1 and S2 are heard. Lungs are clear to auscultation bilaterally. Problem - Time spent with Patient (mins): 22 Plan - Discharge Medications Prescriptions: Amoxicillin/Potassium Clav [Augmentin 250mg/5mL Oral Susp] 15 ml PER TUBE Q8HR #450 ml Pantoprazole [Protonix] 40 mg PER TUBE DAILY #30 pk Metoclopramide [Reglan Oral Solution] 5 mg PER TUBE ACHS #600 ml Scopolamine [Transderm Scop] 1.5 mg TD Q3D #10 patch Home Medications: Medication Instructions Recorded Confirmed Type Olopatadine HCl 1 drop EA EYE DAILY 05/19/20 05/19/20 History Acetaminophen With Codeine 1 each PER TUBE Q6HR PRN #0 05/25/20 05/19/20 Rx [Acetaminophen-Cod #3 Tablet] Amlodipine [Norvasc] 10 mg PER TUBE DAILY #0 05/25/20 05/19/20 Rx Amoxicillin/Potassium Clav 15 ml PER TUBE Q8HR #450 ml 05/25/20 Rx [Augmentin 250mg/5mL Oral Susp] Clopidogrel Bisulfate [Clopidogrel] 75 mg PER TUBE DAILY #0 05/25/20 05/19/20 Rx Metoclopramide [Reglan Oral 5 mg PER TUBE ACHS #600 ml 05/25/20 Rx Solution] Metoprolol Tartrate 50 mg PER TUBE HS #0 05/25/20 05/19/20 Rx Metoprolol Tartrate 100 mg PER TUBE QAM #0 05/25/20 05/19/20 Rx Pantoprazole [Protonix] 40 mg PER TUBE DAILY #30 pk 05/25/20 Rx Rosuvastatin Calcium [Crestor] 40 mg PER TUBE HS #0 05/25/20 05/19/20 Rx Scopolamine [Transderm Scop] 1.5 mg TD Q3D #10 patch 05/25/20 Rx Tamsulosin HCl [Flomax] 0.8 mg PER TUBE HS #0 05/25/20 05/19/20 Rx metFORMIN HCl [Fortamet] 1,000 mg PER TUBE TID-WM #0 05/25/20 05/19/20 Rx Allergies: hydrocodone Allergy (Verified 05/19/20 02:16) facial itching loratadine Allergy (Verified 05/19/20 02:16) facial itching per pt - Discharge Instructions Discharge Instructions:: Notify your doctor if you experience any: -temperature greater than 100.4F -nausea/vomiting -shortness of breath or chest pain that is unrelieved with rest -residual greater than 500ml -severe abdominal pain -questions/concerns that you may have Activity:: Activity as Tolerated Nourishment:: Tube Feeding Diet Therapies:: Not Applicable Equipment/Supplies:: Not Applicable IV Therapy:: Not Applicable - Follow up Plan Referrals: Shayne Davis MD [Active] - 10 Days (Call after discharge to schedule follow-up appointment) Jace Arnold MD [Active] - 3-4 Weeks (Call after discharge to schedule follow-up within 3 weeks ) Sonu Mckinley MD [Primary Care Provider] - 3 Days (Call after discharge to schedule follow-up appointment ) Disposition: HOME Quality - Care Measures CORE MEASURES:: N/A
== END 2020-05-26 14:17 | disposition home health service (06) | DRG 641 ==
LOC: ERS 16:23 → ONC 18:58
PROVIDERS: ADMIT Emergency Medicine; ATTEND Internal Medicine
DX: E86.0 Dehydration (principal); E44.0 Moderate protein-calorie malnutrition; R64 Cachexia; E87.1 Hypo-osmolality and hyponatremia; K12.2 Cellulitis and abscess of mouth; K12.1 Other forms of stomatitis; T66.XXXA Radiation sickness, unspecified, initial encounter; C76.0 Malignant neoplasm of head, face and neck; Z20.828 Contact with and (suspected) exposure to other viral communicable diseases; E87.6 Hypokalemia; E78.5 Hyperlipidemia, unspecified; I10 Essential (primary) hypertension; I48.0 Paroxysmal atrial fibrillation; N18.30 Chronic kidney disease, stage 3 unspecified; E11.22 Type 2 diabetes mellitus with diabetic chronic kidney disease; E83.42 Hypomagnesemia; R13.10 Dysphagia, unspecified; F10.10 Alcohol abuse, uncomplicated; J02.9 Acute pharyngitis, unspecified; Z88.5 Allergy status to narcotic agent; Z88.8 Allergy status to other drugs, medicaments and biological substances; Z68.20 Body mass index [BMI] 20.0-20.9, adult; Z79.84 Long term (current) use of oral hypoglycemic drugs; Z79.899 Other long term (current) drug therapy; Z87.891 Personal history of nicotine dependence; Z79.82 Long term (current) use of aspirin; Z93.1 Gastrostomy status; I95.9 Hypotension, unspecified
CPT/HCPCS: 36415; 36416; 70491; 71045; 71250; 74177; 77386; 80048; 80053; 80202; 81001; 82248; 82550; 83605; 83615; 83690; 83735; 84100; 84550; 85025; 86769; 87040; 87086; 93005; 93010; 93970; 96361; 96374; 96375; J0692; J1650; J2185; J2270; J2405; J2765; J3370; J3475; J3480; J3490; J7050; Q9967; S0028

== ENCOUNTER 2020-06-01 10:33 | Day surgery (SDC) | payer BC, MEDICARE ==
[2020-06-01] MEDS ORDERED: Acetaminophen 500 MG TAB PO SCH (10:45)
[2020-06-01] MEDS ORDERED: diphenhydrAMINE 25 MG CAP PO SCH (10:45)
[2020-06-01] MEDS ORDERED: Sodium Chloride 0.9% 20 ML ONE (10:49)
[2020-06-01 15:43] VITALS: BP 132/60; TEMP 97.9
== END 2020-06-01 15:59 | disposition home or self-care (01) ==
LOC: ONC/OP 10:33
PROVIDERS: ATTEND Internal Medicine Hematology & Oncology
PROC: 30233N1 Transfusion of Nonautologous Red Blood Cells into Peripheral Vein, Percutaneous Approach (ICD-10-PCS; principal; 2020-06-01)
DX: D64.9 Anemia, unspecified (principal); D69.6 Thrombocytopenia, unspecified; Z88.5 Allergy status to narcotic agent; Z88.8 Allergy status to other drugs, medicaments and biological substances
CPT/HCPCS: 36430; 86850; 86900; 86901; 99211; G0463; P9016; Q0163

== ENCOUNTER 2020-06-05 20:48 | Emergency (ER) | END 2020-06-05 22:15 | disposition left against medical advice (07) | LOC: ERS 20:48 → MERGE 20:48 → ERS 22:15 | DX: Z53.21 Procedure and treatment not carried out due to patient leaving prior to being seen by health care provider (principal) ==

== ENCOUNTER 2020-08-24 07:44 | Outpatient (CLI) | payer BC, MEDICARE ==
--- NOTE | 2020-08-24 11:10 | PET ---
Nuclear medicine FDG PET/CT: (Positron emission tomography and computed tomography) DATE: 08/24/2020 HISTORY: 74-year-old male with malignant neoplasm of head and neck C76.0, evaluate for response to radiation t herapy and chemotherapy. COMPARISON: 03/25/2020 TECHNIQUE: IV injection of F-18 fluorodeoxyglucose (FDG) dose: 11.3 mCi. PET scan and attenuation correction CT performed from skull base to proximal thighs. PET scan and attenuation correction CT thinner slices performed through head and neck. FINDINGS: SUV (standard uptake values) numbers given are maximum SUVs. QCLR used. On the previous PET scan, there was hypermetabolic activity involving broad sheets of soft tissue den sity material involving the right submandibular space, right carotid space, and in the subcutaneous fat broadly abutting the right sternocleidomastoid muscle, which is atrophic. Currently, such uptake is now widespread throughout superficial and deep spaces of the neck, involvin g almost the entire neck. SUV is mostly below the 2.5 threshold. The nondiagnostic attenuation correction CT images demonstrate diffuse soft tissue edema throughout t he pharyngeal mucosal space including the larynx and hypopharynx, as well as subcutaneous superficial spaces and deep spaces, consistent with post radiation changes. No discrete hypermetabolic cervical lymph node or mass is identified. There is hypermetabolic activity at the site of a new PEG tube. There is no evidence of metastatic disease in the chest, abdomen, or pelvis. Left atrial appendage closure device noted. Atherosclerotic calcification of left main, LAD, RCA, and LCx. IMPRESSION: 1) post radiation changes in the neck 2) no convincing evidence of recurrent malignant tumor or metastatic disease. 3) ICD-10: I 25.84: Coronary atherosclerosis due to calcified coronary lesion. 4) left atrial appendage closure device 5) percutaneous gastrostomy tube
== END 2020-08-24 07:45 | disposition home or self-care (01) ==
LOC: PET 07:44
PROVIDERS: ATTEND Internal Medicine Hematology & Oncology
DX: C76.0 Malignant neoplasm of head, face and neck (principal); Z93.1 Gastrostomy status
CPT/HCPCS: 78815; A9552

== ENCOUNTER 2020-09-29 07:52 | Outpatient (CLI) | payer BC, MEDICARE ==
[2020-09-29] MEDS ORDERED: Iopamidol 370 76% 100 ML VIAL ONE (14:39)
== END 2020-09-29 07:53 | disposition home or self-care (01) ==
LOC: BICCT 07:52
PROVIDERS: ATTEND Internal Medicine Cardiovascular Disease
DX: R06.02 Shortness of breath (principal); I48.91 Unspecified atrial fibrillation
CPT/HCPCS: 71275; 82565; Q9967

== ENCOUNTER 2020-10-28 10:11 | Outpatient (CLI) | payer BC, MEDICARE ==
[2020-10-29 01:47] LABS: SARS-CoV-2 PCR by NAA Not Detected (NotDetected)
== END 2020-10-28 10:12 | disposition home or self-care (01) ==
LOC: LABBT 10:11
PROVIDERS: ATTEND Specialist
DX: Z01.812 Encounter for preprocedural laboratory examination (principal); R13.10 Dysphagia, unspecified; Z20.822 Contact with and (suspected) exposure to COVID-19
CPT/HCPCS: 87635; U0003; U0005

== ENCOUNTER 2020-11-01 09:20 | Outpatient (CLI) | payer BC, MEDICARE | END 2020-11-01 09:21 | disposition home or self-care (01) | LOC: RAD 09:20 | PROVIDERS: ATTEND Specialist | DX: R13.10 Dysphagia, unspecified (principal) | CPT/HCPCS: 74220 ==

== ENCOUNTER 2020-11-22 09:29 | Outpatient (CLI) | payer BC, MEDICARE ==
[2020-11-22 17:50] LABS: SARS-CoV-2 PCR by NAA Not Detected (NotDetected)
== END 2020-11-22 09:30 | disposition home or self-care (01) ==
LOC: LABBT 09:29
PROVIDERS: ATTEND Radiology Radiation Oncology
DX: Z01.812 Encounter for preprocedural laboratory examination (principal); Z20.822 Contact with and (suspected) exposure to COVID-19
CPT/HCPCS: 87635; U0003; U0005

== ENCOUNTER 2020-11-24 09:57 | Outpatient (CLI) | payer BC, MEDICARE | END 2020-11-24 09:58 | disposition home or self-care (01) | PROVIDERS: ATTEND Radiology Radiation Oncology | DX: R13.12 Dysphagia, oropharyngeal phase (principal); C77.9 Secondary and unspecified malignant neoplasm of lymph node, unspecified; R13.13 Dysphagia, pharyngeal phase; J38.7 Other diseases of larynx; K12.33 Oral mucositis (ulcerative) due to radiation | CPT/HCPCS: 74230 ==

== ENCOUNTER 2020-12-21 11:10 | Outpatient (CLI) | payer BC, MEDICARE ==
[2020-12-21 11:56] LABS: Hemoglobin 11.6 g/dL (13.5-17.5); Mean Corpuscular HGB CONC 34.2 g/dL (32.0-36.0); Mean Corpuscular Hemoglobin 31.8 pg (27.0-33.0); Mean Corpuscular Volume 92.9 fl (81.2-95.1); Mean Platelet Volume 9.2 fl (7.4-10.4); Platelet Count 170 10x3/uL (150-450); RBC Distribution Width 12.9 % (11.5-14.5); Red Blood Cell (RBC) Count 3.65 10x6/uL (4.32-5.72); White Blood Cell (WBC) Count 5.2 10x3/uL (3.5-10.5)
[2020-12-21 12:32] LABS: Anion Gap 15 mmol/L (10-20); BUN (Urea Nitrogen) 12 mg/dL (8.4-25.7); Calc. Creatinine Clearance 0 mL/min (70-130); Calcium 9.7 mg/dL (7.8-10.44); Carbon Dioxide 27 mmol/L (23-31); Chloride 98 mmol/L (98-107); Glucose 160 mg/dL (83-110); Potassium 4.6 mmol/L (3.5-5.1); Sodium 135 mmol/L (136-145)
== END 2020-12-21 11:11 | disposition home or self-care (01) ==
LOC: LABBT 11:10
PROVIDERS: ATTEND Specialist
DX: Z01.818 Encounter for other preprocedural examination (principal); K22.8 Other specified diseases of esophagus; R13.10 Dysphagia, unspecified; C80.1 Malignant (primary) neoplasm, unspecified
CPT/HCPCS: 80048; 85027; 93005; 93010

== ENCOUNTER 2020-12-23 08:08 | Day surgery (SDC) | payer BC, MEDICARE ==
[2020-12-22 11:52] VITALS: BMI 20.8
[2020-12-23] MEDS ORDERED: EPINEPHrine 1 MG/ML AMP ONE (09:23)
[2020-12-23] MEDS ORDERED: Fentanyl 100 MCG/2 ML VIAL ONE (09:31)
[2020-12-23] MEDS ORDERED: Lidocaine 2% Jelly 5 ML TUBE ONE (09:31)
[2020-12-23] MEDS ORDERED: Succinylcholine 200 MG/10 ml SYRINGE FS ONE (11:15)
[2020-12-23] MEDS ORDERED: Lidocaine 1% PF 5 ML VIAL ONE (11:15)
[2020-12-23] MEDS ORDERED: Ondansetron PF 4 MG/2 ML Vial ONE (11:15)
[2020-12-23] MEDS ORDERED: Dexamethasone 20 MG/5 ML VIAL ONE (11:15)
[2020-12-23] MEDS ORDERED: Glycopyrrolate 0.2 MG/ML 5 ML SYRINGE ONE (11:15)
[2020-12-23] MEDS ORDERED: PROPOFOL 200 MG/20 ML VIAL ONE (11:15)
== END 2020-12-23 13:29 | disposition home or self-care (01) ==
LOC: SDC 08:08
PROVIDERS: ATTEND Specialist
PROC: 0CJS8ZZ Inspection of Larynx, Via Natural or Artificial Opening Endoscopic (ICD-10-PCS; principal; 2020-12-23)
PROC: 0D750ZZ Dilation of Esophagus, Open Approach (ICD-10-PCS; principal; 2020-12-23)
PROC: 0DD58ZX Extraction of Esophagus, Via Natural or Artificial Opening Endoscopic, Diagnostic (ICD-10-PCS; principal; 2020-12-23)
DX: K22.2 Esophageal obstruction (principal); I10 Essential (primary) hypertension; E11.42 Type 2 diabetes mellitus with diabetic polyneuropathy; E78.5 Hyperlipidemia, unspecified; N40.0 Benign prostatic hyperplasia without lower urinary tract symptoms; Z79.82 Long term (current) use of aspirin; Z79.899 Other long term (current) drug therapy; Z87.891 Personal history of nicotine dependence; Z88.5 Allergy status to narcotic agent; Z88.8 Allergy status to other drugs, medicaments and biological substances
CPT/HCPCS: J0171; J1100; J2405; J2704; J3010

== ENCOUNTER 2021-05-12 09:20 | Outpatient (CLI) | payer BC, MEDICARE ==
[2021-05-12 17:21] LABS: SARS-CoV-2 PCR by NAA Not Detected (NotDetected)
== END 2021-05-12 09:21 | disposition home or self-care (01) ==
LOC: LABBT 09:20
PROVIDERS: ATTEND Family Medicine
DX: Z01.812 Encounter for preprocedural laboratory examination (principal); Z20.822 Contact with and (suspected) exposure to COVID-19
CPT/HCPCS: U0003; U0005

== ENCOUNTER 2021-05-13 10:54 | Outpatient (CLI) | payer BC, MEDICARE | END 2021-05-13 10:55 | disposition home or self-care (01) | PROVIDERS: ATTEND Radiology Radiation Oncology | DX: I69.191 Dysphagia following nontraumatic intracerebral hemorrhage (principal); R13.12 Dysphagia, oropharyngeal phase; R63.30 Feeding difficulties, unspecified; R53.1 Weakness | CPT/HCPCS: 74230 ==

== ENCOUNTER 2022-01-23 09:03 | Outpatient (CLI) | payer BC, MEDICARE ==
[2022-01-23 11:05] LABS: Hemoglobin 11.3 g/dL (13.5-17.5); Mean Corpuscular HGB CONC 36.3 g/dL (32.0-36.0); Mean Corpuscular Hemoglobin 32.3 pg (27.0-33.0); Mean Corpuscular Volume 88.9 fl (81.2-95.1); Mean Platelet Volume 12.4 fl (7.4-10.4); Platelet Count 100 10x3/uL (150-450); RBC Distribution Width 11.9 % (11.5-14.5); White Blood Cell (WBC) Count 4.8 10x3/uL (3.5-10.5)
[2022-01-23 11:27] LABS: Anion Gap 17 mmol/L (10-20); BUN (Urea Nitrogen) 8 mg/dL (8.4-25.7); Calc. Creatinine Clearance 0 mL/min (70-130); Calcium 9.2 mg/dL (7.8-10.44); Carbon Dioxide 25 mmol/L (23-31); Chloride 89 mmol/L (98-107); Estimated GFR 90; Glucose 121 mg/dL (83-110); Potassium 3.9 mmol/L (3.5-5.1); Sodium 127 mmol/L (136-145)
== END 2022-01-23 09:04 | disposition home or self-care (01) ==
LOC: LABBT 09:03
PROVIDERS: ATTEND Specialist
DX: Z01.818 Encounter for other preprocedural examination (principal); R13.10 Dysphagia, unspecified; J02.9 Acute pharyngitis, unspecified; R05.9 Cough, unspecified; Z20.822 Contact with and (suspected) exposure to COVID-19
CPT/HCPCS: 80048; 85027; 87811; 93005; 93010

== ENCOUNTER 2022-01-26 07:39 | Day surgery (SDC) | payer BC, MEDICARE ==
[2022-01-24 15:38] VITALS: BMI 21.7
[2022-01-26] MEDS ORDERED: EPINEPHrine 1 MG/ML AMP ONE ×2 (08:36→08:37)
[2022-01-26] MEDS ORDERED: fentaNYL Citrate/PF 100 MCG/2 ML SYRINGE ONE (08:41)
[2022-01-26] MEDS ORDERED: Famotidine/PF 20 mg/2ml Vial ONE (08:41)
[2022-01-26] MEDS ORDERED: SUGAMMADEX SODIUM 200 MG/2 ML VIAL ONE (08:41)
[2022-01-26] MEDS ORDERED: Succinylcholine 200 MG/10 ml SYRINGE FS ONE (09:02)
[2022-01-26] MEDS ORDERED: PROPOFOL 200 MG/20 ML VIAL ONE (09:02)
[2022-01-26] MEDS ORDERED: Metoclopramide HCl 10 MG/2 ML VIAL ONE (09:02)
[2022-01-26] MEDS ORDERED: Ondansetron PF 4 MG/2 ML Vial ONE (09:02)
[2022-01-26] MEDS ORDERED: Lidocaine 1% PF 5 ML VIAL ONE (09:02)
== END 2022-01-26 11:29 | disposition home or self-care (01) ==
LOC: SDC 07:39
PROVIDERS: ATTEND Specialist
PROC: 0CJS8ZZ Inspection of Larynx, Via Natural or Artificial Opening Endoscopic (ICD-10-PCS; principal; 2022-01-26)
PROC: 0D758ZZ Dilation of Esophagus, Via Natural or Artificial Opening Endoscopic (ICD-10-PCS; principal; 2022-01-26)
DX: K22.2 Esophageal obstruction (principal); R13.19 Other dysphagia; I10 Essential (primary) hypertension; E78.5 Hyperlipidemia, unspecified; E11.42 Type 2 diabetes mellitus with diabetic polyneuropathy; N40.0 Benign prostatic hyperplasia without lower urinary tract symptoms; I45.6 Pre-excitation syndrome; Z92.3 Personal history of irradiation; Z87.891 Personal history of nicotine dependence; Z79.82 Long term (current) use of aspirin; Z79.84 Long term (current) use of oral hypoglycemic drugs; Z79.899 Other long term (current) drug therapy; Z88.5 Allergy status to narcotic agent; Z88.8 Allergy status to other drugs, medicaments and biological substances
CPT/HCPCS: J0171; J2405; J2704; J2765; S0028

== ENCOUNTER 2022-01-28 11:53 | Inpatient (IN) | payer BC, MEDICARE ==
[2022-01-28 12:32] LABS: #Lymphocytes 0.3 thou/uL (1.20-3.40); #Monocytes 0.5 thou/uL (0.11-0.59); #Neutrophils 4.8 thou/uL (1.40-6.50); %Eosinophils 0.5 % (0.0-10.0); %Monocytes 8.8 % (0.0-10.0); %Neutrophils 84.7 % (42.0-75.0); Hemoglobin 7.8 g/dL (14.0-18.0); Mean Corpuscular HGB CONC 35.1 g/dL (32.0-36.0); Mean Corpuscular Hemoglobin 34.4 pg (27.0-31.0); Mean Corpuscular Volume 97.9 fL (78.0-98.0); Platelet Count 171 thou/uL (130-400); RBC Distribution Width 11.6 % (11.5-14.5); Red Blood Cell (RBC) Count 2.28 mill/uL (4.70-6.10); White Blood Cell (WBC) Count 5.6 thou/uL (4.8-10.8)
[2022-01-28 12:39] LABS: ALT (SGPT) 11 U/L (8-55); AST (SGOT) 14 U/L (5-34); Albumin 3.6 g/dL (3.4-4.8); Alkaline Phosphatase 32 U/L (40-110); Anion Gap 15 mmol/L (10-20); BUN (Urea Nitrogen) 35 mg/dL (8.4-25.7); Bilirubin, Total 0.6 mg/dL (0.2-1.2); Calc. Creatinine Clearance 0 mL/min (70-130); Calcium 8.2 mg/dL (7.8-10.44); Carbon Dioxide 24 mmol/L (23-31); Chloride 101 mmol/L (98-107); Estimated GFR 86; Globulin 2.3 g/dL (2.4-3.5); Glucose 178 mg/dL (83-110); Magnesium 1.2 mg/dL (1.6-2.6); Potassium 3.8 mmol/L (3.5-5.1); Protein, Total 5.9 g/dL (5.8-8.1); Sodium 136 mmol/L (136-145)
[2022-01-28] MEDS ORDERED: Magnesium 2 GM/50 ML BAG (IN WATER) ONE (12:45)
[2022-01-28 13:43] LABS: Bilirubin Negative (Negative); Blood, Urine Negative (Negative); Clarity Clear (Clear); Glucose, Urine (Dipstick) 100 mg/dL (Negative); Ketone, Urine Trace mg/dL (Negative); Leukocyte Negative Leu/uL (Negative); Nitrite Negative (Negative); Protein, Urine (Dipstick) Negative (Neg-Trace); Specific Gravity, Urine 1.015 (1.002-1.036); Urobilinogen Normal mg/dL (Less than 2)
[2022-01-28 14:00] LABS: SARS-CoV-2 NAA Rapid Test Not Detected (NotDetected)
[2022-01-28] MEDS ORDERED: Acetaminophen 325 MG TAB PO PRN (14:59)
[2022-01-28] MEDS ORDERED: Pantoprazole 40 MG VIAL IVP SCH (15:15)
[2022-01-28] MEDS ORDERED: Iopamidol 370 76% 100 ML VIAL ONE (15:54)
[2022-01-28 16:08] LABS: Iron 40 ug/dL (65-175); Iron Binding Capacity, Total 321 mcg/dL (261-462)
[2022-01-28 16:39] LABS: Ferritin 69.79 ng/mL (22-322)
[2022-01-28] MEDS ORDERED: Metoprolol Tartrate 5 MG/5 ML VIAL IVP PRN (16:55)
[2022-01-28 17:12] LABS: Magnesium 1.8 mg/dL (1.6-2.6)
[2022-01-28] MEDS: Sodium Chloride 0.9% 1,000 ML IV SCH ×2 (20:09→21:27)
[2022-01-28] MEDS ORDERED: Cyclobenzaprine 10 MG TAB PO SCH (21:15)
[2022-01-28] MEDS: Rosuvastatin 20 MG TAB PO SCH (21:20)
[2022-01-28] MEDS: Metoprolol Tartrate 50 MG TAB PO SCH (21:21)
[2022-01-28] MEDS: Tamsulosin HCl 0.4 MG CAP PO SCH (21:21)
[2022-01-28] MEDS: Ketotifen Fumarate 0.025% Ophth Soln 5 ml Bottle EA EYE SCH (21:37)
[2022-01-29 04:24] LABS: #Eosinphils 0.1 thou/uL (0.0-0.7); #Lymphocytes 0.5 thou/uL (1.20-3.40); #Monocytes 0.6 thou/uL (0.11-0.59); #Neutrophils 4.1 thou/uL (1.40-6.50); %Basophils 0.2 % (0.0-1.0); %Lymphocytes 10.2 % (21.0-51.0); %Monocytes 11.5 % (0.0-10.0); %Neutrophils 76.1 % (42.0-75.0); Hemoglobin 8.8 g/dL (14.0-18.0); Mean Corpuscular HGB CONC 34.5 g/dL (32.0-36.0); Mean Corpuscular Hemoglobin 33.6 pg (27.0-31.0); Mean Corpuscular Volume 97.4 fL (78.0-98.0); Mean Platelet Volume 6.9 fL (7.4-10.4); Platelet Count 145 thou/uL (130-400); Red Blood Cell (RBC) Count 2.62 mill/uL (4.70-6.10); White Blood Cell (WBC) Count 5.3 thou/uL (4.8-10.8)
[2022-01-29] MEDS: Sodium Chloride 0.9% 1,000 ML IV SCH ×2 (06:16→21:56)
[2022-01-29] MEDS ORDERED: Iron Sucrose Complex 200 MG in Sodium Chloride 0.9% 100 ML IVPB SCH (07:45)
[2022-01-29] MEDS: Metoprolol Tartrate 50 MG TAB PO SCH ×2 (08:30→21:48)
[2022-01-29] MEDS: Aspirin 81 mg Enteric Coated Tablet PO SCH (08:30)
[2022-01-29] MEDS: Amlodipine 10 MG TAB PO SCH (08:30)
[2022-01-29] MEDS: Pantoprazole 40 MG VIAL IVP SCH (08:31)
[2022-01-29] MEDS: Ketotifen Fumarate 0.025% Ophth Soln 5 ml Bottle EA EYE SCH ×2 (08:31→21:47)
[2022-01-29] MEDS ORDERED: Iron, Sodium Ferric Gluconate 250 MG in Sodium Chloride 0.9% 250 ML 250 ML IVPB SCH (09:00)
[2022-01-29] MEDS ORDERED: Artificial Tear Sol 15 ML BOT EA EYE PRN (18:28)
[2022-01-29] MEDS: rOPINIRole HCl 1 MG TAB PO SCH (21:48)
[2022-01-29] MEDS: Rosuvastatin 20 MG TAB PO SCH (21:48)
[2022-01-29] MEDS: Tamsulosin HCl 0.4 MG CAP PO SCH (21:48)
[2022-01-30] MEDS: Sodium Chloride 0.9% 1,000 ML IV SCH (09:05)
[2022-01-30] MEDS: Amlodipine 10 MG TAB PO SCH (09:05)
[2022-01-30] MEDS: Metoprolol Tartrate 50 MG TAB PO SCH ×2 (09:06→20:53)
[2022-01-30] MEDS: Ketotifen Fumarate 0.025% Ophth Soln 5 ml Bottle EA EYE SCH ×2 (09:06→20:53)
[2022-01-30] MEDS: Aspirin 81 mg Enteric Coated Tablet PO SCH (09:06)
[2022-01-30] MEDS: Pantoprazole 40 MG VIAL IVP SCH (09:07)
[2022-01-30 14:49] VITALS: BMI 21.8
[2022-01-30] MEDS: Rosuvastatin 20 MG TAB PO SCH (20:52)
[2022-01-30] MEDS: Tamsulosin HCl 0.4 MG CAP PO SCH (20:52)
[2022-01-30] MEDS: rOPINIRole HCl 1 MG TAB PO SCH (20:53)
[2022-01-31 04:54] LABS: Anion Gap 12 mmol/L (10-20); BUN (Urea Nitrogen) 7 mg/dL (8.4-25.7); Calc. Creatinine Clearance 90 mL/min (70-130); Carbon Dioxide 25 mmol/L (23-31); Chloride 99 mmol/L (98-107); Estimated GFR 94; Glucose 127 mg/dL (83-110); Sodium 133 mmol/L (136-145)
[2022-01-31 05:05] LABS: Potassium 2.7 mmol/L (3.5-5.1)
[2022-01-31 05:45] LABS: Magnesium 1.4 mg/dL (1.6-2.6)
[2022-01-31] MEDS ORDERED: Electrolyte Replacement Protocol FS PRN (05:45)
[2022-01-31] MEDS ORDERED: Potassium Chloride 20 MEQ TAB PO SCH (06:00)
[2022-01-31] MEDS ORDERED: Magnesium Sulfate In Water 4 GM in Premix Bag 1 BAG IVPB SCH (08:00)
[2022-01-31] MEDS: Potassium Chloride 20 MEQ in Premix Bag 1 BAG IVPB SCH ×2 (10:55→13:43)
[2022-01-31] MEDS: Pantoprazole 40 MG VIAL IVP SCH (10:56)
[2022-01-31] MEDS: Aspirin 81 mg Enteric Coated Tablet PO SCH (10:56)
[2022-01-31] MEDS: Metoprolol Tartrate 50 MG TAB PO SCH ×2 (10:56→20:53)
[2022-01-31] MEDS: Amlodipine 10 MG TAB PO SCH (10:57)
[2022-01-31] MEDS: Ketotifen Fumarate 0.025% Ophth Soln 5 ml Bottle EA EYE SCH ×2 (10:57→20:54)
[2022-01-31 20:26] LABS: Potassium 3.4 mmol/L (3.5-5.1)
[2022-01-31] MEDS: Tamsulosin HCl 0.4 MG CAP PO SCH (20:53)
[2022-01-31] MEDS: Rosuvastatin 20 MG TAB PO SCH (20:53)
[2022-01-31] MEDS: rOPINIRole HCl 1 MG TAB PO SCH (20:54)
[2022-02-01 07:14] LABS: Anion Gap 11 mmol/L (10-20); BUN (Urea Nitrogen) 7 mg/dL (8.4-25.7); Calc. Creatinine Clearance 84 mL/min (70-130); Calcium 8.5 mg/dL (7.8-10.44); Carbon Dioxide 26 mmol/L (23-31); Chloride 98 mmol/L (98-107); Estimated GFR 92; Glucose 125 mg/dL (83-110); Magnesium 1.9 mg/dL (1.6-2.6); Potassium 3.2 mmol/L (3.5-5.1); Sodium 132 mmol/L (136-145)
[2022-02-01 07:17] LABS: Hemoglobin 8.3 g/dL (14.0-18.0); Mean Corpuscular HGB CONC 35.1 g/dL (32.0-36.0); Mean Corpuscular Hemoglobin 33.8 pg (27.0-31.0); Mean Corpuscular Volume 96.4 fL (78.0-98.0); Mean Platelet Volume 7.3 fL (7.4-10.4); Platelet Count 181 thou/uL (130-400); RBC Distribution Width 12.2 % (11.5-14.5); Red Blood Cell (RBC) Count 2.45 mill/uL (4.70-6.10); White Blood Cell (WBC) Count 4.2 thou/uL (4.8-10.8)
[2022-02-01] MEDS ORDERED: Magnesium 2 GM/50 ML(in water) 2 GM in Premix Bag 1 BAG IVPB SCH (08:00)
[2022-02-01] MEDS ORDERED: Potassium Chloride 20 MEQ TAB PO SCH (08:00)
[2022-02-01] MEDS: Amlodipine 10 MG TAB PO SCH (09:53)
[2022-02-01] MEDS: Metoprolol Tartrate 50 MG TAB PO SCH (09:55)
[2022-02-01] MEDS: Aspirin 81 mg Enteric Coated Tablet PO SCH (09:55)
[2022-02-01] MEDS: Pantoprazole 40 MG VIAL IVP SCH (09:56)
[2022-02-01] MEDS: Ketotifen Fumarate 0.025% Ophth Soln 5 ml Bottle EA EYE SCH (10:31)
[2022-02-01 15:58] VITALS: BP 122/58; TEMP 97.4
== END 2022-02-01 17:45 | disposition home or self-care (01) | DRG 392 ==
LOC: ERS 11:53 → 2NO 13:50
PROVIDERS: ADMIT Internal Medicine; ATTEND Internal Medicine
PROC: 0CJS8ZZ Inspection of Larynx, Via Natural or Artificial Opening Endoscopic (ICD-10-PCS; principal; 2022-01-26)
PROC: 0D758ZZ Dilation of Esophagus, Via Natural or Artificial Opening Endoscopic (ICD-10-PCS; 2022-01-26)
DX: K22.2 Esophageal obstruction (principal); C77.9 Secondary and unspecified malignant neoplasm of lymph node, unspecified; E44.0 Moderate protein-calorie malnutrition; C76.0 Malignant neoplasm of head, face and neck; Z20.822 Contact with and (suspected) exposure to COVID-19; E78.5 Hyperlipidemia, unspecified; D64.9 Anemia, unspecified; R13.12 Dysphagia, oropharyngeal phase; E83.42 Hypomagnesemia; I10 Essential (primary) hypertension; K22.719 Barrett's esophagus with dysplasia, unspecified; N18.30 Chronic kidney disease, stage 3 unspecified; E11.22 Type 2 diabetes mellitus with diabetic chronic kidney disease; I48.0 Paroxysmal atrial fibrillation; E87.6 Hypokalemia; Z88.5 Allergy status to narcotic agent; Z88.8 Allergy status to other drugs, medicaments and biological substances; Z79.899 Other long term (current) drug therapy; Z79.84 Long term (current) use of oral hypoglycemic drugs; Z87.891 Personal history of nicotine dependence; Z79.82 Long term (current) use of aspirin; Z91.14 Patient's other noncompliance with medication regimen; Z68.21 Body mass index [BMI] 21.0-21.9, adult; R13.19 Other dysphagia; E11.42 Type 2 diabetes mellitus with diabetic polyneuropathy; N40.0 Benign prostatic hyperplasia without lower urinary tract symptoms; I45.6 Pre-excitation syndrome; Z92.3 Personal history of irradiation
CPT/HCPCS: 36415; 36416; 36430; 70491; 71045; 71260; 74230; 80048; 80053; 81003; 82607; 82728; 83540; 83550; 83735; 83880; 84484; 85025; 85027; 86850; 86900; 86901; 87086; 93005; 93010; C9113; J0171; J2405; J2704; J2765; J2916; J3475; J3480; J7050; P9016; Q9967; S0028; U0002

== ENCOUNTER 2022-02-04 14:31 | Inpatient (IN) | payer BC, MEDICARE ==
[2022-02-04 15:20] LABS: #Eosinphils 0.2 thou/uL (0.0-0.7); #Lymphocytes 0.4 thou/uL (1.20-3.40); #Monocytes 0.7 thou/uL (0.11-0.59); #Neutrophils 6.3 thou/uL (1.40-6.50); %Basophils 0.3 % (0.0-1.0); %Eosinophils 2.6 % (0.0-10.0); %Lymphocytes 5.5 % (21.0-51.0); %Neutrophils 82.7 % (42.0-75.0); Hemoglobin 7.2 g/dL (14.0-18.0); Mean Corpuscular HGB CONC 35.2 g/dL (32.0-36.0); Mean Corpuscular Hemoglobin 34.3 pg (27.0-31.0); Mean Corpuscular Volume 97.4 fL (78.0-98.0); Mean Platelet Volume 6.4 fL (7.4-10.4); Platelet Count 237 thou/uL (130-400); RBC Distribution Width 12.2 % (11.5-14.5); Red Blood Cell (RBC) Count 2.09 mill/uL (4.70-6.10); White Blood Cell (WBC) Count 7.6 thou/uL (4.8-10.8)
[2022-02-04 15:40] LABS: Anion Gap 14 mmol/L (10-20); BUN (Urea Nitrogen) 21 mg/dL (8.4-25.7); Calc. Creatinine Clearance 0 mL/min (70-130); Calcium 8.9 mg/dL (7.8-10.44); Carbon Dioxide 24 mmol/L (23-31); Chloride 99 mmol/L (98-107); Estimated GFR 58; Glucose 143 mg/dL (83-110); Magnesium 1.4 mg/dL (1.6-2.6); Potassium 4.1 mmol/L (3.5-5.1); Sodium 133 mmol/L (136-145)
[2022-02-04] MEDS ORDERED: Ondansetron PF 4 MG/2 ML Vial IVP PRN (16:39)
[2022-02-04] MEDS ORDERED: HumaLOG 300 UNITS/3 ML VIAL SC PRN ×2 (16:45)
[2022-02-04] MEDS ORDERED: Dextrose 5% in Water 1,000 ML IV PRN (16:45)
[2022-02-04] MEDS ORDERED: Magnesium 2 GM/50 ML(in water) 2 GM in Premix Bag 1 BAG IVPB SCH (16:45)
[2022-02-04] MEDS ORDERED: Dextrose 50% Abboject 50 ML SYRINGE SLOW IVP PRN (16:45)
[2022-02-04 17:45] LABS: Glucose 133 mg/dL (83-110)
[2022-02-04 19:24] LABS: Iron 55 ug/dL (65-175); Iron Binding Capacity, Total 266 mcg/dL (261-462)
[2022-02-04] MEDS: Pantoprazole 40 MG VIAL IVP SCH (19:48)
[2022-02-04] MEDS: Sodium Chloride 0.9% 1,000 ML IV SCH (20:11)
[2022-02-04] MEDS ORDERED: Ferrous Sulfate 325 MG TAB PO SCH (22:45)
[2022-02-04] MEDS ORDERED: Sodium Chloride 0.9% 1,000 ML IV SCH (23:00)
[2022-02-05 00:01] LABS: Hemoglobin 5.5 g/dL (14.0-18.0)
[2022-02-05] MEDS: Acetaminophen 325 MG TAB PO PRN ×2 (00:11→06:37)
[2022-02-05 00:48] LABS: Hemoglobin 5.4 g/dL (14.0-18.0); Platelet Count 187 thou/uL (130-400)
[2022-02-05] MEDS ORDERED: Metoprolol Tartrate 5 MG/5 ML VIAL IVP PRN (01:22)
[2022-02-05 02:04] LABS: Magnesium 1.7 mg/dL (1.6-2.6)
[2022-02-05] MEDS ORDERED: Magnesium 2 GM/50 ML(in water) 2 GM in Premix Bag 1 BAG IVPB SCH (02:15)
[2022-02-05 02:55] LABS: Anion Gap 14 mmol/L (10-20); BUN (Urea Nitrogen) 32 mg/dL (8.4-25.7); Calc. Creatinine Clearance 62 mL/min (70-130); Calcium 7.7 mg/dL (7.8-10.44); Carbon Dioxide 21 mmol/L (23-31); Chloride 102 mmol/L (98-107); Estimated GFR 70; Glucose 146 mg/dL (83-110); Potassium 4.2 mmol/L (3.5-5.1); Sodium 133 mmol/L (136-145)
[2022-02-05] MEDS: Sodium Chloride 0.9% 1,000 ML IV SCH ×3 (03:48→20:35)
[2022-02-05] MEDS: Ferrous Sulfate 325 MG TAB PO SCH ×2 (08:56→17:14)
[2022-02-05] MEDS: Pantoprazole 40 MG VIAL IVP SCH ×2 (09:00→20:35)
[2022-02-05 09:48] LABS: #Eosinphils 0.1 thou/uL (0.0-0.7); #Lymphocytes 0.7 thou/uL (1.20-3.40); #Monocytes 0.7 thou/uL (0.11-0.59); %Basophils 0.1 % (0.0-1.0); %Eosinophils 1.5 % (0.0-10.0); %Lymphocytes 12.7 % (21.0-51.0); %Monocytes 13.2 % (0.0-10.0); %Neutrophils 72.6 % (42.0-75.0); Hemoglobin 7.7 g/dL (14.0-18.0); Hemoglobin 7.9 g/dL (14.0-18.0); Mean Corpuscular HGB CONC 34.6 g/dL (32.0-36.0); Mean Corpuscular Volume 95.4 fL (78.0-98.0); Mean Platelet Volume 7.1 fL (7.4-10.4); Platelet Count 177 thou/uL (130-400); Platelet Count 179 thou/uL (130-400); RBC Distribution Width 12.7 % (11.5-14.5); Red Blood Cell (RBC) Count 2.38 mill/uL (4.70-6.10); White Blood Cell (WBC) Count 5.5 thou/uL (4.8-10.8)
[2022-02-05 10:16] LABS: Anion Gap 11 mmol/L (10-20); BUN (Urea Nitrogen) 38 mg/dL (8.4-25.7); Calc. Creatinine Clearance 66 mL/min (70-130); Calcium 7.7 mg/dL (7.8-10.44); Carbon Dioxide 24 mmol/L (23-31); Chloride 104 mmol/L (98-107); Estimated GFR 75; Glucose 124 mg/dL (83-110); Magnesium 1.9 mg/dL (1.6-2.6); Potassium 3.8 mmol/L (3.5-5.1); Sodium 135 mmol/L (136-145)
[2022-02-06 05:21] LABS: #Eosinphils 0.3 thou/uL (0.0-0.7); #Lymphocytes 0.6 thou/uL (1.20-3.40); #Monocytes 0.6 thou/uL (0.11-0.59); %Basophils 0.4 % (0.0-1.0); %Eosinophils 4.6 % (0.0-10.0); %Lymphocytes 8.8 % (21.0-51.0); %Monocytes 9.7 % (0.0-10.0); %Neutrophils 76.6 % (42.0-75.0); Hemoglobin 7.7 g/dL (14.0-18.0); Mean Corpuscular HGB CONC 34.7 g/dL (32.0-36.0); Mean Corpuscular Hemoglobin 33.4 pg (27.0-31.0); Mean Corpuscular Volume 96.1 fL (78.0-98.0); Mean Platelet Volume 6.8 fL (7.4-10.4); Platelet Count 208 thou/uL (130-400); RBC Distribution Width 13.2 % (11.5-14.5); Red Blood Cell (RBC) Count 2.32 mill/uL (4.70-6.10); White Blood Cell (WBC) Count 6.5 thou/uL (4.8-10.8)
[2022-02-06 05:38] LABS: Anion Gap 13 mmol/L (10-20); BUN (Urea Nitrogen) 27 mg/dL (8.4-25.7); Calc. Creatinine Clearance 74 mL/min (70-130); Calcium 8.2 mg/dL (7.8-10.44); Carbon Dioxide 22 mmol/L (23-31); Chloride 108 mmol/L (98-107); Estimated GFR 86; Glucose 105 mg/dL (83-110); Magnesium 1.6 mg/dL (1.6-2.6); Potassium 3.7 mmol/L (3.5-5.1); Sodium 139 mmol/L (136-145)
[2022-02-06] MEDS ORDERED: Fentanyl 100 MCG/2 ML VIAL ONE (07:45)
[2022-02-06] MEDS ORDERED: PROPOFOL 200 MG/20 ML VIAL ONE (08:15)
[2022-02-06] MEDS ORDERED: Promethazine HCl 25 MG/ML VIAL IM PRN (08:32)
[2022-02-06] MEDS ORDERED: Promethazine HCl 25 MG/ML VIAL IVPB PRN (08:32)
[2022-02-06] MEDS ORDERED: Ondansetron HCl/PF 4 MG/2 ML Vial IVP PRN (08:32)
[2022-02-06] MEDS ORDERED: PACU-Morphine 4MG/ML VIAL SLOW IVP PRN (08:32)
[2022-02-06] MEDS: Ferrous Sulfate 325 MG TAB PO SCH (09:21)
[2022-02-06] MEDS: Sodium Chloride 0.9% 1,000 ML IV SCH ×2 (09:56→18:00)
[2022-02-06] MEDS: Pantoprazole 40 MG VIAL IVP SCH ×2 (09:56→20:45)
[2022-02-06] MEDS ORDERED: traMADol HCl 50 MG TAB PO PRN (17:20)
[2022-02-06] MEDS ORDERED: Ketotifen Fumarate 0.025% Ophth Soln 5 ml Bottle EA EYE PRN (17:40)
[2022-02-06] MEDS: Rosuvastatin 20 MG TAB PO SCH (20:44)
[2022-02-06] MEDS: Metoprolol Tartrate 50 MG TAB PO SCH (20:45)
[2022-02-06] MEDS: Tamsulosin HCl 0.4 MG CAP PO SCH (20:45)
[2022-02-07] MEDS: Acetaminophen/Codeine 30-300mg Tablet PO PRN ×2 (01:35→21:07)
[2022-02-07] MEDS: Sodium Chloride 0.9% 1,000 ML IV SCH (04:11)
[2022-02-07 05:08] LABS: #Eosinphils 0.4 thou/uL (0.0-0.7); #Lymphocytes 0.4 thou/uL (1.20-3.40); #Monocytes 0.5 thou/uL (0.11-0.59); #Neutrophils 4.6 thou/uL (1.40-6.50); %Basophils 0.4 % (0.0-1.0); %Eosinophils 7.4 % (0.0-10.0); %Lymphocytes 7.3 % (21.0-51.0); %Monocytes 8.1 % (0.0-10.0); %Neutrophils 76.8 % (42.0-75.0); Hemoglobin 6.7 g/dL (14.0-18.0); Hemoglobin 6.8 g/dL (14.0-18.0); Mean Corpuscular HGB CONC 34.1 g/dL (32.0-36.0); Mean Corpuscular Hemoglobin 32.6 pg (27.0-31.0); Mean Corpuscular Volume 95.7 fL (78.0-98.0); Mean Platelet Volume 6.4 fL (7.4-10.4); Platelet Count 204 thou/uL (130-400); Red Blood Cell (RBC) Count 2.04 mill/uL (4.70-6.10); White Blood Cell (WBC) Count 5.9 thou/uL (4.8-10.8)
[2022-02-07 05:27] LABS: Anion Gap 11 mmol/L (10-20); BUN (Urea Nitrogen) 12 mg/dL (8.4-25.7); Calc. Creatinine Clearance 82 mL/min (70-130); Calcium 7.9 mg/dL (7.8-10.44); Carbon Dioxide 24 mmol/L (23-31); Chloride 104 mmol/L (98-107); Estimated GFR 91; Glucose 101 mg/dL (83-110); Potassium 3.3 mmol/L (3.5-5.1); Sodium 136 mmol/L (136-145)
[2022-02-07] MEDS: Potassium Chloride 20 MEQ in Premix Bag 1 BAG IVPB SCH ×2 (06:32→16:11)
[2022-02-07 07:06] LABS: Magnesium 1.2 mg/dL (1.6-2.6)
[2022-02-07] MEDS ORDERED: Electrolyte Replacement Protocol 1 EACH FS SCH (08:30)
[2022-02-07] MEDS ORDERED: Acetaminophen 500 MG TAB PO SCH (08:45)
[2022-02-07] MEDS ORDERED: Amlodipine 10 MG TAB PO SCH (09:00)
[2022-02-07] MEDS: Metoprolol Tartrate 50 MG TAB PO SCH ×2 (09:42→21:07)
[2022-02-07] MEDS: metFORMIN 500 MG TAB PO SCH ×2 (09:43→17:33)
[2022-02-07] MEDS: Pantoprazole 40 MG VIAL IVP SCH ×2 (09:43→21:08)
[2022-02-07] MEDS ORDERED: Magnesium Sulfate In Water 4 GM in Premix Bag 1 BAG IVPB SCH (10:00)
[2022-02-07 14:00] VITALS: BMI 21.5
[2022-02-07 15:28] LABS: Magnesium 1.3 mg/dL (1.6-2.6); Potassium 3.7 mmol/L (3.5-5.1)
[2022-02-07] MEDS ORDERED: Potassium Chloride 20 MEQ in Premix Bag 1 BAG IVPB SCH (15:30)
[2022-02-07] MEDS ORDERED: Melatonin 3 MG TAB PO PRN (20:31)
[2022-02-07] MEDS: Rosuvastatin 20 MG TAB PO SCH (21:07)
[2022-02-07] MEDS: Tamsulosin HCl 0.4 MG CAP PO SCH (21:07)
[2022-02-08] MEDS: Acetaminophen 325 MG TAB PO PRN (03:08)
[2022-02-08 05:18] LABS: #Eosinphils 0.4 thou/uL (0.0-0.7); #Lymphocytes 0.4 thou/uL (1.20-3.40); #Monocytes 0.5 thou/uL (0.11-0.59); %Basophils 0.2 % (0.0-1.0); %Eosinophils 8.9 % (0.0-10.0); %Lymphocytes 10.3 % (21.0-51.0); %Monocytes 10.7 % (0.0-10.0); %Neutrophils 69.9 % (42.0-75.0); Hemoglobin 8.6 g/dL (14.0-18.0); Mean Corpuscular HGB CONC 34.6 g/dL (32.0-36.0); Mean Corpuscular Hemoglobin 33.2 pg (27.0-31.0); Mean Corpuscular Volume 95.7 fL (78.0-98.0); Mean Platelet Volume 6.7 fL (7.4-10.4); Platelet Count 186 thou/uL (130-400); RBC Distribution Width 13.7 % (11.5-14.5); Red Blood Cell (RBC) Count 2.58 mill/uL (4.70-6.10); White Blood Cell (WBC) Count 4.2 thou/uL (4.8-10.8)
[2022-02-08 05:48] LABS: Anion Gap 12 mmol/L (10-20); BUN (Urea Nitrogen) 9 mg/dL (8.4-25.7); Calc. Creatinine Clearance 78 mL/min (70-130); Calcium 8.2 mg/dL (7.8-10.44); Carbon Dioxide 23 mmol/L (23-31); Chloride 105 mmol/L (98-107); Estimated GFR 91; Glucose 104 mg/dL (83-110); Magnesium 1.9 mg/dL (1.6-2.6); Potassium 3.8 mmol/L (3.5-5.1); Sodium 136 mmol/L (136-145)
[2022-02-08 07:38] VITALS: BP 117/49
[2022-02-08 07:59] LABS: Glucose 110 mg/dL (83-110)
[2022-02-08] MEDS ORDERED: Magnesium 2 GM/50 ML(in water) 2 GM in Premix Bag 1 BAG IVPB SCH (08:00)
[2022-02-08] MEDS: metFORMIN 500 MG TAB PO SCH (09:03)
[2022-02-08] MEDS: Pantoprazole 40 MG VIAL IVP SCH (09:04)
[2022-02-08] MEDS: Metoprolol Tartrate 50 MG TAB PO SCH ×2 (09:04→09:19)
[2022-02-08 12:26] LABS: Glucose 126 mg/dL (83-110)
[2022-02-08 12:33] VITALS: TEMP 97.5
== END 2022-02-08 15:15 | disposition home or self-care (01) | DRG 378 ==
LOC: ERS 14:31 → NEURO 16:52
PROVIDERS: ADMIT Internal Medicine; ATTEND Hospitalist
PROC: 30233N1 Transfusion of Nonautologous Red Blood Cells into Peripheral Vein, Percutaneous Approach (ICD-10-PCS; 2022-02-04)
PROC: 0W3P8ZZ Control Bleeding in Gastrointestinal Tract, Via Natural or Artificial Opening Endoscopic (ICD-10-PCS; principal; 2022-02-06)
DX: K25.4 Chronic or unspecified gastric ulcer with hemorrhage (principal); E87.1 Hypo-osmolality and hyponatremia; D62 Acute posthemorrhagic anemia; I10 Essential (primary) hypertension; E78.5 Hyperlipidemia, unspecified; K22.6 Gastro-esophageal laceration-hemorrhage syndrome; N40.0 Benign prostatic hyperplasia without lower urinary tract symptoms; E11.9 Type 2 diabetes mellitus without complications; R13.10 Dysphagia, unspecified; E83.42 Hypomagnesemia; I48.91 Unspecified atrial fibrillation; Z20.822 Contact with and (suspected) exposure to COVID-19; I95.1 Orthostatic hypotension; Z79.82 Long term (current) use of aspirin; Z79.84 Long term (current) use of oral hypoglycemic drugs; Z79.899 Other long term (current) drug therapy; Z98.890 Other specified postprocedural states; Z88.8 Allergy status to other drugs, medicaments and biological substances; Z83.3 Family history of diabetes mellitus; Z82.49 Family history of ischemic heart disease and other diseases of the circulatory system; Z87.891 Personal history of nicotine dependence; Z87.01 Personal history of pneumonia (recurrent); Z92.3 Personal history of irradiation; Z85.21 Personal history of malignant neoplasm of larynx
CPT/HCPCS: 36415; 36416; 36430; 80048; 82728; 82947; 83540; 83550; 83735; 85018; 85025; 86850; 86900; 86901; 86921; 93005; 93010; C1776; C9113; J1815; J2704; J3010; J3475; J3480; J7050; P9016; U0003; U0005

== ENCOUNTER 2022-06-10 12:47 | Emergency (ER) | payer BC, MEDICARE ==
[2022-06-10] MEDS ORDERED: Fleet Enema 133 ML BOT FS SCH (14:00)
== END 2022-06-10 15:31 | disposition home or self-care (01) ==
LOC: ERS 12:47
DX: K59.00 Constipation, unspecified (principal); E11.9 Type 2 diabetes mellitus without complications; E78.5 Hyperlipidemia, unspecified; I10 Essential (primary) hypertension; Z79.84 Long term (current) use of oral hypoglycemic drugs; Z79.899 Other long term (current) drug therapy; Z79.82 Long term (current) use of aspirin
CPT/HCPCS: 99283